=== PATIENT | female | born 1940 | race Caucasian/White ===

== ENCOUNTER 2018-03-04 05:52 | Day surgery (SDC) | payer MEDICARE, MEDICAID ==
[2018-03-04] MEDS ORDERED: Sodium Chloride 0.9% 10 ML Syringe FLUSH PRN (07:00)
[2018-03-04 08:35] VITALS: BP 112/63
--- NOTE | 2018-03-04 12:02 | OR ---
DATE OF PROCEDURE: 03/04/2018 POSTOPERATIVE CARE: Postoperative care will be provided mainly at the [address] [place] [address] [facility] in conjunction with [facility]. PREOPERATIVE DIAGNOSIS: Cataract, right eye. PREOPERATIVE DIAGNOSIS: Cataract, right eye. PROCEDURE: Cataract extraction, Phacoemulsification with intraocular lens placement, right eye. ANESTHESIA: Topical and intracameral. ESTIMATED BLOOD LOSS: Minimal. COMPLICATIONS: None. PATHOLOGY SPECIMENS: None. SURGICAL FINDINGS: None. INDICATION FOR PROCEDURE: The patient is a 78-year-old female with history of a visually significant cataract in the right eye, which interfered with activities of daily living. This consisted of a nuclear sclerosis cataract. Following careful discussion of the risks, benefits and alternatives to cataract extraction with intraocular lens placement including blindness and , the patient elected to proceed, and informed, written consent was obtained prior to the procedure. DESCRIPTION OF THE PROCEDURE: The patient was previously identified, and a yanna placed above the right eye. All sources, including the patient, indicated that the right eye was the correct eye. The patient was subsequently taken to the operating room where standard monitors were applied. The patient was then prepped and draped in the usual sterile fashion for ophthalmic surgery. Attention was first directed at the 12 o'clock position where a paracentesis port was fashioned. Shugar solution followed by Viscoat was instilled into the eye. Attention was then directed to the 8:30 position where a triplanar incision was made in a near-clear manner using a keratome. A continuous capsulorrhexis was then made using a combination of the cystotome and Utrata forceps. Hydrodissection was achieved using a balanced salt solution, and the lens rotated nicely. Phacoemulsification was then done using a modified [id number] technique without complication. Phaco time was 11.92 CDE. The remaining cortex was removed using the irrigation/aspiration handpiece. Provisc was then instilled into the eye. A Technis lens, model [id number], at 18.0 diopters was then placed in the capsular bag using an [place] injector. The remaining viscoelastic was removed using the irrigation/aspiration forceps. All wounds were then checked and found to be watertight. The lid speculum and drapes were removed. Maxitrol ointment was placed in the patient's right eye, and the eye was shielded. The patient tolerated the procedure well. The patient was instructed to follow up tomorrow. All needle and sponge counts were correct at the end of the procedure. Olga Mckeon MD /[id number]
== END 2018-03-04 09:10 | disposition home or self-care (01) ==
LOC: JP.SDS 05:52
PROVIDERS: ATTEND Ophthalmology
DX: H25.11 Age-related nuclear cataract, right eye (principal); I50.9 Heart failure, unspecified
CPT/HCPCS: 66984; C1780; J7050

== ENCOUNTER 2018-03-25 06:53 | Day surgery (SDC) | payer MEDICARE, MEDICAID ==
[2018-03-25] MEDS ORDERED: Sodium Chloride 0.9% 10 ML Syringe FLUSH PRN (07:00)
[2018-03-25 08:42] VITALS: BP 167/99
--- NOTE | 2018-03-25 09:34 | OR ---
DATE OF PROCEDURE: 03/25/2018 POSTOPERATIVE CARE: Postoperative care will be provided mainly at the [address] [place] [address] [facility] in conjunction with [facility]. PREOPERATIVE DIAGNOSIS: Cataract, left eye. POSTOPERATIVE DIAGNOSIS: Cataract, left eye. PROCEDURE: Cataract extraction, phacoemulsification with intraocular lens placement, left eye. ANESTHESIA: Topical and intracameral. ESTIMATED BLOOD LOSS: Minimal. COMPLICATIONS: None. PATHOLOGY SPECIMENS: None. SURGICAL FINDINGS: None. INDICATION FOR PROCEDURE: The patient is a 78-year-old female with history of a visually significant cataract in the left eye, which interfered with activities of daily living. This consisted of a nuclear sclerosis cataract. Following careful discussion of the risks, benefits and alternatives to cataract extraction with intraocular lens placement including blindness and , the patient elected to proceed, and informed, written consent was obtained prior to the procedure. DESCRIPTION OF THE PROCEDURE: The patient was previously identified, and a yanna placed above the left eye. All sources, including the patient, indicated that the left eye was the correct eye. The patient was subsequently taken to the operating room where standard monitors were applied. The patient was then prepped and draped in the usual sterile fashion for ophthalmic surgery. Attention was first directed at the 12 o'clock position where a paracentesis port was fashioned. Shugar solution followed by Viscoat was instilled into the eye. Attention was then directed to the 8:30 position where a triplanar incision was made in a near-clear manner using a keratome. A continuous capsulorrhexis was then made using a combination of the cystotome and Utrata forceps. Hydrodissection was achieved using a balanced salt solution, and the lens rotated nicely. Phacoemulsification was then done using a modified [id number] technique without complication. Phaco time was 14.83 CDE. The remaining cortex was removed using the irrigation/aspiration handpiece. Provisc was then instilled into the eye. A Technis lens, model [id number], at 19.0 diopters was then placed in the capsular bag using an [place] injector. The remaining viscoelastic was removed using the irrigation/aspiration forceps. All wounds were then checked and found to be watertight. The lid speculum and drapes were removed. Maxitrol ointment was placed in the patient's left eye, and the eye was shielded. The patient tolerated the procedure well. The patient was instructed to follow up tomorrow. All needle and sponge counts were correct at the end of the procedure. Olga Mckeon MD /[id number]
== END 2018-03-25 09:03 | disposition home or self-care (01) ==
LOC: JP.SDS 06:53
PROVIDERS: ATTEND Ophthalmology
DX: H25.12 Age-related nuclear cataract, left eye (principal); I10 Essential (primary) hypertension
CPT/HCPCS: 66984; J7050

== ENCOUNTER 2021-03-01 14:37 | Emergency (ER) | payer MEDICARE, MEDICAID ==
[2021-03-01 16:14] VITALS: PULSE 112
[2021-03-01] MEDS ORDERED: Nitroglycerin 0.4 MG Tab.SL SL PRN (16:20)
[2021-03-01] MEDS ORDERED: Aspirin 81 MG Tab.Chew PO ONE (16:20)
[2021-03-01] MEDS ORDERED: Sodium Chloride 0.9% 10 ML Syringe FLUSH PRN (16:20)
--- NOTE | 2021-03-01 16:25 | EDM.PDOC ---
ED HPI GENERAL MEDICAL PROBLEM - General Chief Complaint: Cardiovascular Problem Stated Complaint: SHORTNESS OF BREATH Time Seen by Provider: 03/01/21 16:15 Source of Information: Reports: Patient, Family, RN Notes Reviewed History Limitations: Reports: No Limitations - History of Present Illness INITIAL COMMENTS - FREE TEXT/NARRATIVE: 81-year-old female presents emergency department day complaint of shortness of breath, she states is gotten worse over the last 3 to 4 days does have some chest pressure does have a history of coronary artery disease has not had any Covid vaccine no fevers no nausea vomiting no diaphoresis, does have a history of congestive heart failure intermittently takes her Lasix - Related Data Allergies Allergy/AdvReac Type Severity Reaction Status Date / Time No Known Allergies Allergy Verified 06/17/18 23:36 Home Meds: Home Meds Aspirin 81 mg PO DAILY 02/25/18 [History] Cholecalciferol (Vitamin D3) [Vitamin D3] 5,000 units PO DAILY 02/25/18 [History] Furosemide [Lasix] 20 mg PO DAILY PRN 02/25/18 [History] Nitroglycerin [Nitrostat] 0.4 mg SL ASDIRECTED 02/25/18 [History] carvediloL [Coreg] 3.125 mg PO BIDMEALS 03/24/18 [History] Rosuvastatin [Crestor] 5 mg PO DAILY 03/01/21 [History] Spironolactone [Aldactone] 25 mg PO DAILY 03/01/21 [History] Past Medical History HEENT History: Reports: Cataract, Impaired Vision Cardiovascular History: Reports: CAD, Heart Failure, High Cholesterol, Hypert ension, [employer] History: Reports: Musculoskeletal History: Reports: Fracture - Infectious Disease History Infectious Disease History: Reports: Chicken Pox, Measles, Mumps, Scarlet Fever - Past Surgical History Head Surgeries/Procedures: Reports: None HEENT Surgical History: Reports: Cataract Surgery, Tonsillectomy Cardiovascular Surgical History: Reports: Carotid Stents Other Cardiovascular Surgeries/Procedures: Cardiac Stent x 3 placed in 2004 in [place], [place] GI Surgical History: Reports: Appendectomy, Cholecystectomy, Colonoscopy, EGD Female Surgical History: Reports: Hysterectomy Other Female Surgeries/Procedures: Bilateral Salpingo-oophrectomy Social & Family History - Family History Family Medical History: No Pertinent Family History - Tobacco Use Tobacco Use Status *Q: Never Tobacco User - Caffeine Use Caffeine Use: Reports: Tea - Recreational Drug Use Recreational Drug Use: No ED ROS GENERAL - Review of Systems Review Of Systems: See Below Constitutional: Denies: Fever, Chills HEENT: Reports: No Symptoms Respiratory: Reports: Shortness of Breath Cardiovascular: Reports: Chest Pain, Dyspnea on Exertion GI/Abdominal: Reports: No Symptoms ED EXAM, GENERAL - Physical Exam Exam: See Below Exam Limited By: No Limitations General Appearance: Alert, WD/WN, No Apparent Distress Respiratory/Chest: No Respiratory Distress, No Accessory Muscle Use, Chest Non- Tender, Crackles Cardiovascular: Tachycardia GI/Abdominal: Soft, Non-Tender Extremities: No Pedal Edema #1 Interpretation EKG Date: 03/01/21 Time: 16:38 Rhythm: NSR Pierre: Normal P-Wave: Present QRS: Normal ST-T: Normal QT: Normal Comparison: No Change EKG Interpretation Comments: pvc Course - Vital Signs Last Recorded V/S: Last Vital Signs Temp 97.4 F 03/01/21 16:14 Pulse 112 H 03/01/21 16:14 Resp 26 H 03/01/21 16:39 BP 176/104 H 03/01/21 16:39 Pulse Ox 91 L 03/01/21 16:39 - Orders/Labs/Meds Orders: Active Orders 24 hr Category Date Time Status Cardiac Monitoring [RC] .As Directed Care 03/01/21 16:20 Active EKG Documentation Completion [RC] ASDIRECTED Care 03/01/21 16:21 Active Peripheral IV Care [RC] . DIRECTED Care 03/01/21 16:21 Active Chest 1V Frontal [CR] Stat Exams 03/01/21 16:20 Taken Nitroglycerin [Nitrostat] Med 03/01/21 16:20 Active 0.4 mg SL Q5M PRN Sodium Chloride 0.9% [Saline Flush] Med 03/01/21 16:20 Active 10 ml FLUSH ASDIRECTED PRN Peripheral IV Insertion Adult [OM.PC] Stat Oth 03/01/21 16:20 Ordered Saline Lock Insert [OM.PC] Stat Oth 03/01/21 16:20 Ordered EKG 12 Lead [EK] Stat Ther 03/01/21 16:20 Ordered Medication Orders Nitroglycerin (Nitroglycerin 0.4 Mg Tab.Sl) 0.4 mg SL Q5M PRN PRN Reason: Chest Pain Stop: 03/02/21 16:21 Last Admin: 03/01/21 16:33 Dose: 0.4 mg Documented by: IVELISSE Sodium Chloride (Sodium Chloride 0.9% 10 Ml Syringe) 10 ml FLUSH ASDIRECTED PRN PRN Reason: Keep Vein Open Last Admin: 03/01/21 16:32 Dose: 10 ml Documented by: IVELISSE Labs: Laboratory Tests 03/01/21 03/01/21 Range/Units 16:31 16:31 WBC 12.1 H (4.5-11.0) K/uL RBC 4.51 (3.30-5.50) M/uL Hgb 13.4 (12.0-15.0) g/dL Hct 42.0 (36.0-48.0) % MCV 93 (80-98) fL MCH 30 (27-31) pg MCHC 32 (32-36) % Plt Count 284 (150-400) K/uL Neut % (Auto) 84.0 H (36-66) % Lymph % (Auto) 7.9 L (24-44) % [place] % (Auto) 5.5 (2-6) % Eos % (Auto) 2.3 (2-4) % Baso % (Auto) 0.3 (0-1) % Sodium 144 (140-148) mmol/L Potassium 4.5 (3.6-5.2) mmol/L Chloride 105 (100-108) mmol/L Carbon Dioxide 23 (21-32) mmol/L Anion Gap 16.3 H (5.0-14.0) mmol/L BUN 18 (7-18) mg/dL Creatinine 1.0 (0.6-1.0) mg/dL Est Cr Clr Drug Dosing 40.38 mL/min Estimated GFR (MDRD) 53 L (>60) Glucose 133 H (74-106) mg/dL Calcium 9.0 (8.5-10.1) mg/dL Total Bilirubin 0.5 (0.2-1.0) mg/dL AST 17 (15-37) U/L ALT 16 (12-78) U/L Alkaline Phosphatase 93 (46-116) U/L Troponin I 0.022 (0.000-0.056) ng/mL NT-Pro-B Natriuret Pep 64286 H (5-450) pg/mL Total Protein 7.7 (6.4-8.2) g/dL Albumin 3.5 (3.4-5.0) g/dL Globulin 4.2 H (2.3-3.5) g/dL Albumin/Globulin Ratio 0.8 L (1.2-2.2) Meds: Medications Generic Name Dose Route Start Last Admin Trade Name Freq PRN Reason Stop Dose Admin Nitroglycerin 0.4 mg 03/01/21 16:20 03/01/21 16:33 Nitroglycerin 0.4 Mg Tab.Sl SL 03/02/21 16:21 0.4 mg Q5M PRN Administration Chest Pain Sodium Chloride 10 ml 03/01/21 16:20 03/01/21 16:32 Sodium Chloride 0.9% 10 Ml Syringe FLUSH 10 ml ASDIRECTED PRN Administration Keep Vein Open Discontinued Medications Generic Name Dose Route Start Last Admin Trade Name Freq PRN Reason Stop Dose Admin Aspirin 324 mg 03/01/21 16:20 03/01/21 16:31 Aspirin 81 Mg Tab.Chew PO 03/01/21 16:21 324 mg ONETIME ONE Administration Furosemide 60 mg 03/01/21 17:30 Furosemide 40 Mg/4 Ml Vial IVPUSH 03/01/21 17:31 ONETIME ONE Departure - Departure Time of Disposition: 17:33 Disposition: Home, Self-Care 01 Condition: Fair Clinical Impression: Acute exacerbation of congestive heart failure Qualifiers: Heart failure type: unspecified Qualified Code(s): I50.9 - Heart failure, unspecified Instructions: Heart Failure, Self Care, [id number] Referrals: Noah Erickson MD [Primary Care Provider] - Forms: ED Department Discharge Additional Instructions: Restart your Lasix 40 mg once a day, please follow-up with your primary care in 5 to 7 days for reevaluation and recheck your blood work and kidney function. You can start your Lasix tomorrow Sepsis Event Note (ED) - Evaluation Sepsis Screening Result: No Definite Risk - Focused Exam Vital Signs: Vital Signs Temp Pulse Resp BP BP Pulse Ox 03/01/21 16:39 26 H 176/104 H 91 L 03/01/21 16:33 178/102 H 03/01/21 16:14 97.4 F 112 H 22 H 192/107 H 94 L 03/01/21 16:05 97.4 F 104 H 20 192/107 H 94 L - My Orders Last 24 Hours: My Active Orders 03/01/21 16:20 Cardiac Monitoring [RC] .As Directed Chest 1V Frontal [CR] Stat Nitroglycerin [Nitrostat] 0.4 mg SL Q5M PRN Sodium Chloride 0.9% [Saline Flush] 10 ml FLUSH ASDIRECTED PRN Peripheral IV Insertion Adult [OM.PC] Stat Saline Lock Insert [OM.PC] Stat EKG 12 Lead [EK] Stat 03/01/21 16:21 EKG Documentation Completion [RC] ASDIRECTED Peripheral IV Care [RC] . DIRECTED - Assessment/Plan Last 24 Hours: My Active Orders 03/01/21 16:20 Cardiac Monitoring [RC] .As Directed Chest 1V Frontal [CR] Stat Nitroglycerin [Nitrostat] 0.4 mg SL Q5M PRN Sodium Chloride 0.9% [Saline Flush] 10 ml FLUSH ASDIRECTED PRN Peripheral IV Insertion Adult [OM.PC] Stat Saline Lock Insert [OM.PC] Stat EKG 12 Lead [EK] Stat 03/01/21 16:21 EKG Documentation Completion [RC] ASDIRECTED Peripheral IV Care [RC] . DIRECTED Plan: Assessment Acuity = acute Site and laterality = exacerbation congestive heart failure Etiology = medical compliance Manifestations = none Location of injury = Home Lab values = WBC elevated 12.1 consistent leukocytosis, troponin normal range at 0.022 BNP markedly elevated 12932 chest x-ray consistent with congestive heart failure type pattern Plan After further discussion with her she does admit that she is very intermittent on her Lasix she does not take it every day sometimes she only takes half a tablet cardiology had put on her 40 mg once a day she is concerned about her kidney function so she has cut back on her Lasix, she was provided 80 mg IV dose in the emergency department her creatinine now is at 1.0 I recommend she restart the dose of Lasix per recommendation of cardiology with 40 mg once a day and and follow-up with her primary care in a week or so for reevaluation This note was dictated using [employer] voice recognition software please call with any questions on syntax or grammar.
[2021-03-01 16:39] VITALS: BP 176/104
[2021-03-01] MEDS ORDERED: Furosemide 40 MG/4 ML VIAL IVPUSH ONE (17:30)
--- NOTE | 2021-03-04 13:51 | CR ---
CHEST: Portable 03/01/2021 at 4:54 PM CLINICAL HISTORY:Chest pain COMPARISON:2018 FINDINGS: The heart size, pulmonary vascularity and hilar structures are normal. No infiltrate effusion or pneumothorax is seen. There are some chronic interstitial prominence similar to prior study. There are atherosclerotic changes in the aorta. IMPRESSION: No acute cardiopulmonary process. Chronic interstitial changes
== END 2021-03-01 18:20 | disposition home or self-care (01) ==
LOC: JP.ED 14:37
DX: I11.0 Hypertensive heart disease with heart failure (principal); I50.9 Heart failure, unspecified; I25.10 Atherosclerotic heart disease of native coronary artery without angina pectoris; E78.00 Pure hypercholesterolemia, unspecified; I25.2 Old myocardial infarction; Z79.82 Long term (current) use of aspirin; Z79.899 Other long term (current) drug therapy
CPT/HCPCS: 36415; 71045; 80053; 83880; 84484; 85025; 93005; 96374; 99284; 99285; A9270; J1940

== ENCOUNTER 2021-08-20 19:43 | Inpatient (IN) | payer MEDICARE, MEDICAID ==
[2021-08-20] MEDS ORDERED: Sodium Chloride 0.9% 10 ML Syringe FLUSH PRN (19:45)
--- NOTE | 2021-08-20 20:00 | EDM.PDOC ---
ED HPI GENERAL MEDICAL PROBLEM - General Chief Complaint: Neuro Symptoms/Deficits Stated Complaint: POST SURGICAL DIZZINESS Time Seen by Provider: 08/20/21 19:45 Source of Information: Reports: Patient, Family History Limitations: Reports: No Limitations - History of Present Illness INITIAL COMMENTS - FREE TEXT/NARRATIVE: Annika is an 81-year-old female presenting to the ED for evaluation of acute onset of diplopia. Patient underwent a coronary angiogram at [facility] yesterday having a right radial artery approach and reports that she had brief episodes yesterday of diplopia. Today she felt acutely dizzy and lowered herself to the floor and again started to experience diplopia. The patient's last known well time was 1330 hrs. yesterday. Head Pain Score (Numeric/FACES): 5 - Related Data Allergies Allergy/AdvReac Type Severity Reaction Status Date / Time No Known Allergies Allergy Verified 08/20/21 20:36 Home Meds: Home Meds Aspirin 81 mg PO DAILY 02/25/18 [History] Cholecalciferol (Vitamin D3) [Vitamin D3] 5,000 units PO DAILY 02/25/18 [History] Nitroglycerin [Nitrostat] 0.4 mg SL ASDIRECTED 02/25/18 [History] carvediloL [Coreg] 3.125 mg PO BIDMEALS 03/24/18 [History] Rosuvastatin [Crestor] 5 mg PO DAILY 03/01/21 [History] Spironolactone [Aldactone] 25 mg PO DAILY 03/01/21 [History] Furosemide 1 tab PO DAILY 08/20/21 [History] Past Medical History HEENT History: Reports: Cataract, Impaired Vision Cardiovascular History: Reports: CAD, Heart Failure, High Cholesterol, Hypertension, DC Genitourinary History: Reports: None NEWSPERSON History: Reports: Musculoskeletal History: Reports: Fracture - Infectious Disease History Infectious Disease History: Reports: Chicken Pox, Measles, Mumps, Scarlet Fever - Past Surgical History Head Surgeries/Procedures: Reports: None HEENT Surgical History: Reports: Cataract Surgery, Tonsillectomy Cardiovascular Surgical History: Reports: Carotid Stents Other Cardiovascular Surgeries/Procedures: Cardiac Stent x 3 placed in 2004 in [place], [place] GI Surgical History: Reports: Appendectomy, Cholecystectomy, Colonoscopy, EGD Female Surgical History: Reports: Hysterectomy Other Female Surgeries/Procedures: Bilateral Salpingo-oophrectomy Social & Family History - Family History Family Medical History: No Pertinent Family History - Caffeine Use Caffeine Use: Reports: Tea ED ROS GENERAL - Review of Systems Review Of Systems: See Below Constitutional: Reports: No Symptoms HEENT: Reports: Vision Change (Diplopia) Respiratory: Reports: No Symptoms Cardiovascular: Reports: No Symptoms Endocrine: Reports: No Symptoms GI/Abdominal: Reports: Nausea : Reports: No Symptoms Musculoskeletal: Reports: No Symptoms Skin: Reports: No Symptoms Neurological: Reports: Dizziness, Other (Diplopia) Psychiatric: Reports: No Symptoms Hematologic/Lymphatic: Reports: No Symptoms Immunologic: Reports: No Symptoms ED EXAM, NEURO - Physical Exam Exam: See Below Exam Limited By: No Limitations General Appearance: Alert, Anxious Eye Exam: Right Eye: EOMI, PERRL (Left pupil is slightly dilated at 3 mm and nonreactive to light. Right pupil is 2 mm and reactive to light.), Left Eye: Abnormal EOM (Not able to track in any direction with the eye causing diplopia and dizziness) Ears: Normal External Exam Nose: Normal Inspection Throat/Mouth: Normal Oropharynx, Normal Voice, No Airway Compromise Head Exam: Atraumatic, Normocephalic Neck: Normal Inspection, Supple, Non-Tender, Full Range of Motion, Carotid Bruit (Bilateral) Respiratory/Chest: No Respiratory Distress, Lungs Clear, Normal Breath Sounds Cardiovascular: Normal Peripheral Pulses, Regular Rate, Rhythm, No Murmur GI/Abdominal: Normal Bowel Sounds, Soft, Non-Tender Neurological: Alert, Normal Dorsiflexion, Normal Plantar Flexion, Normal Gait, No Motor/Sensory Deficits, Oriented x 3, Other (Left pupil is at 3 mm with a minimally reactive pupil to light. There is an ocular palsy in any direction with this eye.). No: CN II-XII Intact Back Exam: Normal Inspection, Full Range of Motion Extremities: Normal Inspection, Normal Range of Motion Psychiatric: Normal Affect, Anxious Skin Exam: Warm, Dry, Intact, Normal Color #1 Interpretation EKG Date: 08/20/21 Time: 20:08 Rhythm: NSR Rate (Beats/Min): 78 [place]: Normal P-Wave: Present QRS: Normal ST-T: Normal (Specific ST-T changes in the lateral leads.) QT: Normal Comparison: No Change (No change when compared to the previous EKG on 03/01/2021.) Course - Vital Signs Last Recorded V/S: Last Vital Signs Temp 36.4 C 08/20/21 19:44 Pulse 76 08/20/21 20:49 Resp 14 08/20/21 20:49 BP 119/62 08/20/21 20:49 Pulse Ox 95 08/20/21 20:49 - Orders/Labs/Meds Orders: Active Orders 24 hr Category Date Time Status Assess Neurological Status [RC] CONTINUOUS Care 08/20/21 19:47 Active Blood Glucose Check, Bedside [RC] STAT Care 08/20/21 19:47 Active Cardiac Monitoring [RC] CONTINUOUS Care 08/20/21 19:47 Active Communication Order [RC] STAT Care 08/20/21 19:47 Active Height and Weight [RC] UPON Care 08/20/21 19:47 Active NIH Stroke Scale [RC] Q15M Care 08/20/21 19:47 Active NIH Stroke Scale [RC] STAT Care 08/20/21 19:47 Active Oxygen Therapy, ED [RC] ASDIRECTED Care 08/20/21 19:47 Active Peripheral IV Care [RC] . DIRECTED Care 08/20/21 19:47 Active Vital Signs [RC] Q15M Care 08/20/21 19:47 Active [place] Bedside Swallow Assessment [RC] ASDIRECTED Care 08/20/21 19:47 Active Iopamidol [Isovue-370 (76%)] Med 08/20/21 20:45 Active 100 ml IV . DIRECTED Sodium Chloride 0.9% [Normal Saline] 100 ml Med 08/20/21 20:45 Active IV ASDIRECTED Sodium Chloride 0.9% [Saline Flush] Med 08/20/21 19:45 Active 10 ml FLUSH ASDIRECTED PRN Peripheral IV Insertion Adult [OM.PC] Stat Oth 08/20/21 19:47 Ordered Peripheral IV Insertion Adult [OM.PC] Stat Oth 08/20/21 19:47 Ordered EKG 12 Lead [EK] Stat Ther 08/20/21 19:47 Ordered Medication Orders Sodium Chloride (Normal Saline) 100 mls @ 3.5 mls/sec IV ASDIRECTED MARIO ALBERTO Iopamidol (Iopamidol 755 Mg/Ml 100 Ml Bottle) 100 ml IV . DIRECTED MARIO ALBERTO Sodium Chloride (Sodium Chloride 0.9% 10 Ml Syringe) 10 ml FLUSH ASDIRECTED PRN PRN Reason: Keep Vein Open Last Admin: 08/20/21 20:31 Dose: 10 ml Documented by: ARDEN Labs: Laboratory Tests 08/20/21 08/20/21 08/20/21 Range/Units 20:05 20:05 20:05 WBC 4.4 L (4.5-11.0) K/uL RBC 4.24 (3.30-5.50) M/uL Hgb 12.7 (12.0-15.0) g/dL Hct 38.9 (36.0-48.0) % MCV 92 (80-98) fL MCH 30 (27-31) pg MCHC 33 (32-36) % Plt Count 219 (150-400) K/uL Neut % (Auto) 60.3 (36-66) % Lymph % (Auto) 26.1 (24-44) % Gaines % (Auto) 10.6 H (2-6) % Eos % (Auto) 2.8 (2-4) % Baso % (Auto) 0.2 (0-1) % PT 10.4 (9.2-10.6) sec INR 1.0 APTT 29.8 (21.4-31.8) sec D-Dimer, Quantitative (0.0-500.0) ng/mL Sodium 142 (140-148) mmol/L Potassium 3.7 (3.6-5.2) mmol/L Chloride 103 (100-108) mmol/L Carbon Dioxide 24 (21-32) mmol/L Anion Gap 15.5 H (5.0-14.0) mmol/L BUN 16 (7-18) mg/dL Creatinine 1.2 H (0.6-1.0) mg/dL Est Cr Clr Drug Dosing TNP Estimated GFR (MDRD) 43 L (>60) Glucose 100 (74-106) mg/dL Lactic Acid (0.4-2.0) mmol/L Calcium 8.6 (8.5-10.1) mg/dL Ferritin (8-388) ng/ml Total Bilirubin 0.3 (0.2-1.0) mg/dL AST 23 (15-37) U/L ALT 20 (12-78) U/L Alkaline Phosphatase 78 (46-116) U/L Lactate Dehydrogenase (82-234) U/L Troponin I 0.469 H* (0.000-0.056) ng/mL C-Reactive Protein (0.0-0.3) mg/dL Total Protein 7.2 (6.4-8.2) g/dL Albumin 3.4 (3.4-5.0) g/dL Globulin 3.8 H (2.3-3.5) g/dL Albumin/Globulin Ratio 0.9 L (1.2-2.2) Procalcitonin ng/mL SARS CoV-2 RNA Rapid WHIT 08/20/21 08/20/21 08/20/21 Range/Units 21:07 21:28 21:28 WBC (4.5-11.0) K/uL RBC (3.30-5.50) M/uL Hgb (12.0-15.0) g/dL Hct (36.0-48.0) % MCV (80-98) fL MCH (27-31) pg MCHC (32-36) % Plt Count (150-400) K/uL Neut % (Auto) (36-66) % Lymph % (Auto) (24-44) % Gaines % (Auto) (2-6) % Eos % (Auto) (2-4) % Baso % (Auto) (0-1) % PT (9.2-10.6) sec INR APTT (21.4-31.8) sec D-Dimer, Quantitative 1658.33 H (0.0-500.0) ng/mL Sodium (140-148) mmol/L Potassium (3.6-5.2) mmol/L Chloride (100-108) mmol/L Carbon Dioxide (21-32) mmol/L Anion Gap (5.0-14.0) mmol/L BUN (7-18) mg/dL Creatinine (0.6-1.0) mg/dL Est Cr Clr Drug Dosing Estimated GFR (MDRD) (>60) Glucose (74-106) mg/dL Lactic Acid (0.4-2.0) mmol/L Calcium (8.5-10.1) mg/dL Ferritin 185 (8-388) ng/ml Total Bilirubin (0.2-1.0) mg/dL AST (15-37) U/L ALT (12-78) U/L Alkaline Phosphatase (46-116) U/L Lactate Dehydrogenase 169 (82-234) U/L Troponin I (0.000-0.056) ng/mL C-Reactive Protein 1.74 H (0.0-0.3) mg/dL Total Protein (6.4-8.2) g/dL Albumin (3.4-5.0) g/dL Globulin (2.3-3.5) g/dL Albumin/Globulin Ratio (1.2-2.2) Procalcitonin ng/mL SARS CoV-2 RNA Rapid WHIT Positive H 08/20/21 08/20/21 Range/Units 21:28 21:28 WBC (4.5-11.0) K/uL RBC (3.30-5.50) M/uL Hgb (12.0-15.0) g/dL Hct (36.0-48.0) % MCV (80-98) fL MCH (27-31) pg MCHC (32-36) % Plt Count (150-400) K/uL Neut % (Auto) (36-66) % Lymph % (Auto) (24-44) % Gaines % (Auto) (2-6) % Eos % (Auto) (2-4) % Baso % (Auto) (0-1) % PT (9.2-10.6) sec INR APTT (21.4-31.8) sec D-Dimer, Quantitative (0.0-500.0) ng/mL Sodium (140-148) mmol/L Potassium (3.6-5.2) mmol/L Chloride (100-108) mmol/L Carbon Dioxide (21-32) mmol/L Anion Gap (5.0-14.0) mmol/L BUN (7-18) mg/dL Creatinine (0.6-1.0) mg/dL Est Cr Clr Drug Dosing Estimated GFR (MDRD) (>60) Glucose (74-106) mg/dL Lactic Acid 0.8 (0.4-2.0) mmol/L Calcium (8.5-10.1) mg/dL Ferritin (8-388) ng/ml Total Bilirubin (0.2-1.0) mg/dL AST (15-37) U/L ALT (12-78) U/L Alkaline Phosphatase (46-116) U/L Lactate Dehydrogenase (82-234) U/L Troponin I (0.000-0.056) ng/mL C-Reactive Protein (0.0-0.3) mg/dL Total Protein (6.4-8.2) g/dL Albumin (3.4-5.0) g/dL Globulin (2.3-3.5) g/dL Albumin/Globulin Ratio (1.2-2.2) Procalcitonin < 0.05 ng/mL SARS CoV-2 RNA Rapid WHIT Meds: Medications Generic Name Dose Route Start Last Admin Trade Name Freq PRN Reason Stop Dose Admin Sodium Chloride 100 mls @ 3.5 mls/sec 08/20/21 20:45 Normal Saline IV ASDIRECTED MARIO ALBERTO Iopamidol 100 ml 08/20/21 20:45 Iopamidol 755 Mg/Ml 100 Ml Bottle IV . DIRECTED MARIO ALBERTO Sodium Chloride 10 ml 08/20/21 19:45 08/20/21 20:31 Sodium Chloride 0.9% 10 Ml Syringe FLUSH 10 ml ASDIRECTED PRN Administration Keep Vein Open Discontinued Medications Generic Name Dose Route Start Last Admin Trade Name Freq PRN Reason Stop Dose Admin Sodium Chloride 10 ml 08/20/21 20:39 Sodium Chloride 0.9% 10 Ml Syringe FLUSH 08/20/21 20:40 ONETIME ONE - Radiology Interpretation Free Text/Narrative:: The patient was a code stroke and went straight back to CT for a CT of the head without contrast. I reviewed the images of the study as well as the report. The report is as follows: FINDINGS: CSF spaces: Within normal limits for age. Brain parenchyma and extra-axial spaces: There are nonspecific low attenuation white matter changes consistent with chronic microvascular disease. No sign of mass, hemorrhage, or midline shift. Skull base and calvarium: The visualized paranasal sinuses and mastoid air cells demonstrate no acute or significant findings. The visualized orbits are grossly unremarkable. No skull fractures. IMPRESSION: No acute or significant findings. No signs of mass, acute ischemia or intracranial hemorrhage. Please note that all CT scans at this facility use dose modulation, iterative reconstruction, and/or weight-based dosing when appropriate to reduce radiation dose to as low as reasonably achievable. Dictated by Crescencio Diaz MD @ 08/20/2021 8:16:27 PM Based on the patient's symptoms of left ocular palsy and dilated nonreactive left pupil we proceeded with a CT angiogram of the head and neck. This was interpreted by Dr. Diaz with a CT angio of the head being unremarkable. No sign of occlusion or significant aneurysm. The CT angio of the neck being unremarkable. No sign of dissection or significant stenosis. This would lead me to think that this was an embolic event likely related to the recent angiogram. - Re-Assessments/Exams Free Text/Narrative Re-Assessment/Exam: 08/20/21 22:12 I reviewed the patient's labs showing a normal CBC with a leukocyte count of 4.4, hemoglobin of 12.7, hematocrit of 38.9 platelet count of 219,000. The patient's comprehensive metabolic panel is significant for sodium 142, potassium 3.7, chloride of 103, bicarbonate of 24, BUN of 16 with a creatinine 1.2 and a glucose of 100. Her GFR is calculated at 43. Her PT/INR is 10.4/1.0. Her PTT is 29.8. Her troponin is 0.469, however, the patient did undergo an angiogram yesterday without any evidence for acute stenosis. I discussed the case with Dr. Loaiza, stroke neurologist at [facility] who stated that were too far out for any interventional process at this time but r ecommended MRI/MRA in the morning. Unfortunately they did not have any beds available on the stroke service to accept the patient and recommended we admit the patient here. I reached out to the stroke service Dr. Denis, stroke neurologist at [facility] who recommended we admit the patient here because of lack of beds and to start the patient on a statin if they are not already on 1. The patient is on Crestor at this time. He stated this is likely a posterior embolic stroke. He recommended an echocardiogram, monitoring for any occurrence of atrial fibrillation, antiplatelet medication and fluids. He stated we should allow permissive hypertension. He recommended an MRI/MRA tomorrow. He also concurred that there is nothing that can acutely be done for this patient. I discussed the case with KIANNA Michel who will arrange for these measures. Incidentally, the patient tested positive for COVID-19 which will complicate measures a little bit. The patient reports that she did not tolerate Plavix but did tolerate Brilinta in the past. She is on Crestor at this time. Both her and her son were notified of the Covid test and the criteria for isolation. We will arrange for admission of the patient and further evaluation by PT/OT, and speech therapy. Departure - Departure Time of Disposition: 22:15 Disposition: Admitted As Inpatient 67 Clinical Impression: Posterior circulation stroke, Ocular palsy of left eye, Diplopia, COVID-19 - Discharge Information Referrals: PCP,Unknown [Primary Care Provider] - Forms: ED Department Discharge Critical Care Note - Critical Care Note Total Time (mins): 60 Comments: Critical care time of 60 minutes to coordinate assessment and treatment of the patient for acute stroke, this excludes procedures. Sepsis Event Note (ED) - Focused Exam Vital Signs: Vital Signs Temp Pulse Resp BP Pulse Ox 08/20/21 20:49 76 14 119/62 95 08/20/21 20:29 74 16 123/55 L 95 08/20/21 19:44 36.4 C 95 16 106/58 L 95 - Problem List & Annotations (1) COVID-19 SNOMED Code(s): 058101929 Code(s): U07.1 - COVID-19 Status: Acute Current Visit: Yes (2) Diplopia SNOMED Code(s): 96608008 Code(s): H53.2 - DIPLOPIA Status: Acute Current Visit: Yes (3) Ocular palsy of left eye SNOMED Code(s): 38144867 Code(s): H49.9 - UNSPECIFIED PARALYTIC STRABISMUS Status: Acute Current Visit: Yes (4) Posterior circulation stroke SNOMED Code(s): 167658425 Code(s): I63.50 - CEREB INFRC DUE TO UNSP OCCLS OR STENOS OF UNSP CEREB ARTERY Status: Acute Current Visit: Yes - My Orders Last 24 Hours: My Active Orders 08/20/21 19:45 Sodium Chloride 0.9% [Saline Flush] 10 ml FLUSH ASDIRECTED PRN 08/20/21 19:47 Assess Neurological Status [RC] CONTINUOUS Blood Glucose Check, Bedside [RC] STAT Cardiac Monitoring [RC] CONTINUOUS Communication Order [RC] STAT Height and Weight [RC] UPON NIH Stroke Scale [RC] Q15M NIH Stroke Scale [RC] STAT Oxygen Therapy, ED [RC] ASDIRECTED Peripheral IV Care [RC] . DIRECTED Vital Signs [RC] Q15M [place] Bedside Swallow Assessment [RC] ASDIRECTED Peripheral IV Insertion Adult [OM.PC] Stat Peripheral IV Insertion Adult [OM.PC] Stat EKG 12 Lead [EK] Stat 08/20/21 20:45 Iopamidol [Isovue-370 (76%)] 100 ml IV . DIRECTED Sodium Chloride 0.9% [Normal Saline] 100 ml IV ASDIRECTED - Assessment/Plan Last 24 Hours: My Active Orders 08/20/21 19:45 Sodium Chloride 0.9% [Saline Flush] 10 ml FLUSH ASDIRECTED PRN 08/20/21 19:47 Assess Neurological Status [RC] CONTINUOUS Blood Glucose Check, Bedside [RC] STAT Cardiac Monitoring [RC] CONTINUOUS Communication Order [RC] STAT Height and Weight [RC] UPON NIH Stroke Scale [RC] Q15M NIH Stroke Scale [RC] STAT Oxygen Therapy, ED [RC] ASDIRECTED Peripheral IV Care [RC] . DIRECTED Vital Signs [RC] Q15M [place] Bedside Swallow Assessment [RC] ASDIRECTED Peripheral IV Insertion Adult [OM.PC] Stat Peripheral IV Insertion Adult [OM.PC] Stat EKG 12 Lead [EK] Stat 08/20/21 20:45 Iopamidol [Isovue-370 (76%)] 100 ml IV . DIRECTED Sodium Chloride 0.9% [Normal Saline] 100 ml IV ASDIRECTED
--- NOTE | 2021-08-20 20:18 | CRLCT ---
For Patients: As a result of the Century Cures Act, medical imaging exams and procedure reports are released immediately into your electronic medical record. You may view this report before your referring provider. If you have questions, please contact your health care provider. INDICATION: Acute diplopia with dilated left pupil. TECHNIQUE: Head CT without contrast. COMPARISON: None. FINDINGS: CSF spaces: Within normal limits for age. Brain parenchyma and extra-axial spaces: There are nonspecific low attenuation white matter changes consistent with chronic microvascular disease. No sign of mass, hemorrhage, or midline shift. Skull base and calvarium: The visualized paranasal sinuses and mastoid air cells demonstrate no acute or significant findings. The visualized orbits are grossly unremarkable. No skull fractures. IMPRESSION: No acute or significant findings. No signs of mass, acute ischemia or intracranial hemorrhage. Please note that all CT scans at this facility use dose modulation, iterative reconstruction, and/or weight-based dosing when appropriate to reduce radiation dose to as low as reasonably achievable. Dictated by Crescencio Diaz MD @ 08/20/2021 8:16:27 PM (Electronically Signed)
[2021-08-20] MEDS ORDERED: Sodium Chloride 0.9% 10 ML Syringe FLUSH ONE (20:39)
[2021-08-20] MEDS ORDERED: Sodium Chloride 0.9% 100 ML IV SCH (20:45)
[2021-08-20] MEDS ORDERED: Iopamidol 755 Mg/ML 100 ML Bottle IV SCH (20:45)
--- NOTE | 2021-08-20 21:02 | CRLCT ---
For Patients: As a result of the Century Cures Act, medical imaging exams and procedure reports are released immediately into your electronic medical record. You may view this report before your referring provider. If you have questions, please contact your health care provider. DATE: 08/20/2021 CLINICAL HISTORY: Patient with left ocular palsy and diplopia. TECHNIQUE: Standard helical CT image acquisition of the neck up to the skull base after bolus intravenous contrast enhancement. Multiplanar reconstructed images performed on a separate workstation. COMPARISON: CT same day FINDINGS: The origins of the great vessels from the aortic arch are patent. The origin of the right vertebral artery is patent. The origin of the left vertebral artery is patent. The common carotid arteries are patent. There is no stenosis at the origin of the right internal carotid artery by NASCET criteria. There is a mild (<50%) stenosis at the origin of the left internal carotid artery by NASCET criteria. This is caused by calcified plaque with a <2mm residual lumen. The rest of the cervical segments of the internal carotid arteries are patent up to the skull base. The left vertebral artery is dominant. The cervical segments of the vertebral arteries are patent up to the skull base. The visualized lung apices are unremarkable. The thyroid gland is unremarkable. The soft tissues of the neck are unremarkable. There are degenerative changes in the cervical spine. IMPRESSION: 1. No dissection. 2. Mild (<50%) stenosis at the origin of the left internal carotid artery by NASCET criteria caused by calcified plaque with a <2mm residual lumen. Please note that all CT scans at this facility use dose modulation, iterative reconstruction, and/or weight-based dosing when appropriate to reduce radiation dose to as low as reasonably achievable. Dictated by Arlene Zambrano MD @ 08/20/2021 11:31:59 PM (Electronically Signed)
--- NOTE | 2021-08-20 21:02 | CRLCT ---
For Patients: As a result of the Century Cures Act, medical imaging exams and procedure reports are released immediately into your electronic medical record. You may view this report before your referring provider. If you have questions, please contact your health care provider. DATE: 08/20/2021 CLINICAL HISTORY: Patient with left ocular palsy and diplopia. TECHNIQUE: Standard helical CT image acquisition through the intracranial circulation following intravenous administration of contrast material with bolus tracking. Multiplanar reconstructed images were performed and interpreted. COMPARISON: CT same day FINDINGS: There is no cerebral aneurysm or large vessel occlusion. The right internal carotid artery is normal. The right middle cerebral artery and its branches are normal. The right anterior cerebral artery and its branches are normal. The left internal carotid artery is normal. The left middle cerebral artery and its branches are normal. The left anterior cerebral artery and its branches are normal. The anterior communicating artery is well visualized and appears normal. The right vertebral artery and PICA are normal. The left vertebral artery and PICA are normal. The left vertebral artery is dominant. The basilar artery is patent and appears normal. The right posterior cerebral artery is normal. The left posterior cerebral artery is normal. The visualized venous structures are patent. IMPRESSION: Normal CT angiogram of the head without intracranial aneurysm or other neurovascular abnormality. Please note that all CT scans at this facility use dose modulation, iterative reconstruction, and/or weight-based dosing when appropriate to reduce radiation dose to as low as reasonably achievable. Dictated by Arlene Zambrano MD @ 08/20/2021 11:33:47 PM (Electronically Signed)
--- NOTE | 2021-08-20 23:10 | PCM.HP.2 ---
H&P History of Present Illness - General Date of Service: 08/20/21 Admit Problem/Dx: Admission Diagnosis/Problem Admission Diagnosis/Problem CVA, Cerebrovascular accident Source of Information: Patient, Provider, RN History Limitations: Reports: No Limitations - History of Present Illness Initial Comments - Free Text/Narative: chief complaint: double vision and loss of balance Annika is an 81-year-old female presenting to the ED for evaluation of acute onset of diplopia. Patient underwent a coronary angiogram at [facility] yesterday at 10:30 am. having a right radial artery approach and reports that she had brief episodes yesterday of diplopia. Today she felt acutely dizzy and lowered herself to the floor and again started to experience diplopia. The patient's last known well time was 1330 hrs. yesterday. Symptom Onset Date: 08/19/21 Symptom Onset Time: 13:30 Duration of Symptoms: Reports: Constant Location: Reports: Generalized Quality: Reports: Other (head pain with double vision.) Severity: Severe Improves with: Reports: None Worsens with: Reports: Movement Context: Reports: Other (s/p angioplasty 08/19/2021) Associated Symptoms: Reports: Other (vertigo) Head Pain Score (Numeric/FACES): 5 - Related Data Allergies/Adverse Reactions: Allergies Allergy/AdvReac Type Severity Reaction Status Date / Time No Known Allergies Allergy Verified 08/20/21 20:36 Home Medications: Home Meds Aspirin 81 mg PO DAILY 02/25/18 [History] Cholecalciferol (Vitamin D3) [Vitamin D3] 5,000 units PO DAILY 02/25/18 [History] Nitroglycerin [Nitrostat] 0.4 mg SL ASDIRECTED 02/25/18 [History] carvediloL [Coreg] 3.125 mg PO BIDMEALS 03/24/18 [History] Rosuvastatin [Crestor] 5 mg PO DAILY 03/01/21 [History] Spironolactone [Aldactone] 25 mg PO DAILY 03/01/21 [History] Furosemide 1 tab PO DAILY 08/20/21 [History] Past Medical History HEENT History: Reports: Cataract, Impaired Vision Cardiovascular History: Reports: CAD, Heart Failure, High Cholesterol, Hypertension, [place], Other (See Below) Other Cardiovascular History: angiogram 08/20/2021 Gastrointestinal History: Reports: GERD Genitourinary History: Reports: None 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 History: Reports: Musculoskeletal History: Reports: Fracture - Infectious Disease History Infectious Disease History: Reports: Chicken Pox, Measles, Mumps, Scarlet Fever - Past Surgical History Head Surgeries/Procedures: Reports: None HEENT Surgical History: Reports: Cataract Surgery, Tonsillectomy Cardiovascular Surgical History: Reports: Carotid Stents Other Cardiovascular Surgeries/Procedures: Cardiac Stent x 3 placed in 2004 in [place], [place] GI Surgical History: Reports: Appendectomy, Cholecystectomy, Colonoscopy, EGD Female Surgical History: Reports: Hysterectomy Other Female Surgeries/Procedures: Bilateral Salpingo-oophrectomy Musculoskeletal Surgical History: Reports: None Dermatological Surgical History: Reports: None Social & Family History - Family History Family Medical History: No Pertinent Family History - Tobacco Use Tobacco Use Status *Q: Former Tobacco User Used Tobacco, but Quit: Yes Month/Year Tobacco Last Used: 10/2014 - Caffeine Use Caffeine Use: Reports: Coffee, Soda, Tea - Recreational Drug Use Recreational Drug Use: No - Living Situation & Occupation Living situation: Reports: Occupation: Retired (lives in [place], [place]. with Son.) H&P Review of Systems - Review of Systems: Review Of Systems: See Below General: Reports: Weakness, Fatigue, Other (neat, well groomed, polite young appearing 81 year old female. speech clear and intact.) HEENT: Reports: Headaches (report headache), Vertigo, Visual Changes (double vision) Pulmonary: Reports: No Symptoms Cardiovascular: Reports: Other (reports Congestive Heart Failure & cardiac stents >5) Gastrointestinal: Reports: No Symptoms Genitourinary: Reports: No Symptoms Musculoskeletal: Reports: No Symptoms Skin: Reports: No Symptoms Psychiatric: Reports: No Symptoms Neurological: Reports: Dizziness, Headache, Difficulty Walking (due to loss of balance and double vision), Weakness Hematologic/Lymphatic: Reports: No Symptoms Immunologic: Reports: No Symptoms Exam - Exam Exam: See Below - Vital Signs Vital Signs: Last Vital Signs Temp 97.5 F 08/20/21 19:44 Pulse 76 08/20/21 22:20 Resp 14 08/20/21 22:20 BP 123/48 L 08/20/21 22:20 Pulse Ox 95 08/20/21 22:20 Weight: 164 lb - Exam Quality Assessment: Supplemental Oxygen, DVT Prophylaxis General: Alert, Oriented, Cooperative, Mild Distress (report headache), Other (p leasant, polite, neat and well groomed, appears younger than stated age female.) HEENT: Hearing Intact, Mucosa Moist & [place] (recent dental surgery, had all teeth removed for dentures), Nares Patent, Glasses, Other (right eye palsy. right pupil sluggish ). No: Pupils Equal, Pupils Reactive Neck: Supple, Trachea Midline, 2 Lungs: Clear to Auscultation, Normal Respiratory Effort Cardiovascular: Regular Rate, Regular Rhythm, Normal S1, Normal S2 GI/Abdominal Exam: Normal Bowel Sounds, Soft, Non-Tender, No Organomegaly, No Distention, No Abnormal Bruit, No Mass, Pelvis Stable (Female) Exam: Deferred Rectal (Female) Exam: Deferred Back Exam: Normal Inspection, Full Range of Motion, NT Extremities: Normal Inspection, Normal Range of Motion, Non-Tender, No Pedal Edema, Normal Capillary Refill Peripheral Pulses: 2+: Brachial (R), Radial (L), Dorsalis Pedis (L), Dorsalis Pedis (R) Neurological: Cranial Nerves Intact, Reflexes Equal Bilateral, Strength Equal Bilateral, Normal Speech, Normal Tone Neuro Extensive - Mental Status: Alert, Oriented x3, Normal Mood/Affect, Normal Cognition Neuro Extensive - Motor, Sensory, Reflexes: CN II-XII Intact, Normal Gait, Viki l Reflexes Psychiatric: Alert, Normal Affect, Normal Mood - Patient Data Lab Results Last 24 hrs: Laboratory Results - last 24 hr 08/20/21 08/20/21 08/20/21 Range/Units 20:05 20:05 20:05 WBC 4.4 L (4.5-11.0) K/uL RBC 4.24 (3.30-5.50) M/uL Hgb 12.7 (12.0-15.0) g/dL Hct 38.9 (36.0-48.0) % MCV 92 (80-98) fL MCH 30 (27-31) pg MCHC 33 (32-36) % Plt Count 219 (150-400) K/uL Neut % (Auto) 60.3 (36-66) % Lymph % (Auto) 26.1 (24-44) % [place] % (Auto) 10.6 H (2-6) % Eos % (Auto) 2.8 (2-4) % Baso % (Auto) 0.2 (0-1) % PT 10.4 (9.2-10.6) sec INR 1.0 APTT 29.8 (21.4-31.8) sec D-Dimer, Quantitative (0.0-500.0) ng/mL Sodium 142 (140-148) mmol/L Potassium 3.7 (3.6-5.2) mmol/L Chloride 103 (100-108) mmol/L Carbon Dioxide 24 (21-32) mmol/L Anion Gap 15.5 H (5.0-14.0) mmol/L BUN 16 (7-18) mg/dL Creatinine 1.2 H (0.6-1.0) mg/dL Est Cr Clr Drug Dosing TNP Estimated GFR (MDRD) 43 L (>60) Glucose 100 (74-106) mg/dL Lactic Acid (0.4-2.0) mmol/L Calcium 8.6 (8.5-10.1) mg/dL Ferritin (8-388) ng/ml Total Bilirubin 0.3 (0.2-1.0) mg/dL AST 23 (15-37) U/L ALT 20 (12-78) U/L Alkaline Phosphatase 78 (46-116) U/L Lactate Dehydrogenase (82-234) U/L Troponin I 0.469 H* (0.000-0.056) ng/mL C-Reactive Protein (0.0-0.3) mg/dL Total Protein 7.2 (6.4-8.2) g/dL Albumin 3.4 (3.4-5.0) g/dL Globulin 3.8 H (2.3-3.5) g/dL Albumin/Globulin Ratio 0.9 L (1.2-2.2) Procalcitonin ng/mL SARS CoV-2 RNA Rapid WHIT 08/20/21 08/20/21 08/20/21 Range/Units 21:07 21:28 21:28 WBC (4.5-11.0) K/uL RBC (3.30-5.50) M/uL Hgb (12.0-15.0) g/dL Hct (36.0-48.0) % MCV (80-98) fL MCH (27-31) pg MCHC (32-36) % Plt Count (150-400) K/uL Neut % (Auto) (36-66) % Lymph % (Auto) (24-44) % Marin % (Auto) (2-6) % Eos % (Auto) (2-4) % Baso % (Auto) (0-1) % PT (9.2-10.6) sec INR APTT (21.4-31.8) sec D-Dimer, Quantitative 1658.33 H (0.0-500.0) ng/mL Sodium (140-148) mmol/L Potassium (3.6-5.2) mmol/L Chloride (100-108) mmol/L Carbon Dioxide (21-32) mmol/L Anion Gap (5.0-14.0) mmol/L BUN (7-18) mg/dL Creatinine (0.6-1.0) mg/dL Est Cr Clr Drug Dosing Estimated GFR (MDRD) (>60) Glucose (74-106) mg/dL Lactic Acid (0.4-2.0) mmol/L Calcium (8.5-10.1) mg/dL Ferritin 185 (8-388) ng/ml Total Bilirubin (0.2-1.0) mg/dL AST (15-37) U/L ALT (12-78) U/L Alkaline Phosphatase (46-116) U/L Lactate Dehydrogenase 169 (82-234) U/L Troponin I (0.000-0.056) ng/mL C-Reactive Protein 1.74 H (0.0-0.3) mg/dL Total Protein (6.4-8.2) g/dL Albumin (3.4-5.0) g/dL Globulin (2.3-3.5) g/dL Albumin/Globulin Ratio (1.2-2.2) Procalcitonin ng/mL SARS CoV-2 RNA Rapid WHIT Positive H 08/20/21 08/20/21 Range/Units 21:28 21:28 WBC (4.5-11.0) K/uL RBC (3.30-5.50) M/uL Hgb (12.0-15.0) g/dL Hct (36.0-48.0) % MCV (80-98) fL MCH (27-31) pg MCHC (32-36) % Plt Count (150-400) K/uL Neut % (Auto) (36-66) % Lymph % (Auto) (24-44) % [place] % (Auto) (2-6) % Eos % (Auto) (2-4) % Baso % (Auto) (0-1) % PT (9.2-10.6) sec INR APTT (21.4-31.8) sec D-Dimer, Quantitative (0.0-500.0) ng/mL Sodium (140-148) mmol/L Potassium (3.6-5.2) mmol/L Chloride (100-108) mmol/L Carbon Dioxide (21-32) mmol/L Anion Gap (5.0-14.0) mmol/L BUN (7-18) mg/dL Creatinine (0.6-1.0) mg/dL Est Cr Clr Drug Dosing Estimated GFR (MDRD) (>60) Glucose (74-106) mg/dL Lactic Acid 0.8 (0.4-2.0) mmol/L Calcium (8.5-10.1) mg/dL Ferritin (8-388) ng/ml Total Bilirubin (0.2-1.0) mg/dL AST (15-37) U/L ALT (12-78) U/L Alkaline Phosphatase (46-116) U/L Lactate Dehydrogenase (82-234) U/L Troponin I (0.000-0.056) ng/mL C-Reactive Protein (0.0-0.3) mg/dL Total Protein (6.4-8.2) g/dL Albumin (3.4-5.0) g/dL Globulin (2.3-3.5) g/dL Albumin/Globulin Ratio (1.2-2.2) Procalcitonin < 0.05 ng/mL SARS CoV-2 RNA Rapid WHIT Result Diagrams: 08/20/21 20:05 08/20/21 20:05 Sepsis Event Note - Evaluation Sepsis Screening Result: No Definite Risk - Focused Exam Vital Signs: Vital Signs Temp Pulse Resp BP Pulse Ox 08/20/21 22:20 76 14 123/48 L 95 08/20/21 22:04 75 16 130/56 L 93 L 08/20/21 21:49 75 19 122/57 L 93 L 08/20/21 21:34 73 20 114/64 91 L 08/20/21 21:19 76 10 L 111/56 L 96 08/20/21 21:04 75 14 107/50 L 96 08/20/21 20:49 76 14 119/62 95 08/20/21 20:29 74 16 123/55 L 95 08/20/21 19:44 97.5 F 95 16 106/58 L 95 - Problem List (1) Stroke SNOMED Code(s): 861110352 ICD Code: I63.9 - CEREBRAL INFARCTION, UNSPECIFIED Status: Acute Priority: High Current Visit: Yes Qualifiers: CVA mechanism: other Qualified Code(s): I63.89 - Other cerebral infarction (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 SNOMED Code(s): 43705116, 335582227 ICD Code: I50.40 - UNSP COMBINED SYSTOLIC AND DIASTOLIC (CONGESTIVE) HRT FAIL Status: Chronic Priority: Low Current Visit: Yes Qualifiers: Heart failure chronicity: chronic Qualified Code(s): I50.42 - Chronic combined systolic (congestive) and diastolic (congestive) heart failure (3) COVID-19 SNOMED Code(s): 144283084 ICD Code: U07.1 - COVID-19 Status: Acute Priority: Medium Current Visit: Yes (4) Essential hypertension SNOMED Code(s): 20667034 ICD Code: I10 - ESSENTIAL (PRIMARY) HYPERTENSION Status: Chronic Priority: Medium Current Visit: Yes Problem List Initiated/Reviewed/Updated: Yes Orders Last 24hrs: Active Orders 24 hr Category Date Time Status Patient Status Manage Transfer [TRANSFER] Routine ADT 08/20/21 22:42 Active Assess Neurological Status [RC] CONTINUOUS Care 08/20/21 19:47 Active Blood Glucose Check, Bedside [RC] STAT Care 08/20/21 19:47 Active Cardiac Monitoring [RC] CONTINUOUS Care 08/20/21 19:47 Active Communication Order [RC] STAT Care 08/20/21 19:47 Active Height and Weight [RC] UPON Care 08/20/21 19:47 Active NIH Stroke Scale [RC] Q15M Care 08/20/21 19:47 Active NIH Stroke Scale [RC] STAT Care 08/20/21 19:47 Active Oxygen Therapy, ED [RC] ASDIRECTED Care 08/20/21 19:47 Active Peripheral IV Care [RC] . DIRECTED Care 08/20/21 19:47 Active Vital Signs [RC] Q15M Care 08/20/21 19:47 Active [place] Bedside Swallow Assessment [RC] ASDIRECTED Care 08/20/21 19:47 Active Iopamidol [Isovue-370 (76%)] Med 08/20/21 20:45 Active 100 ml IV . DIRECTED Sodium Chloride 0.9% [Normal Saline] 100 ml Med 08/20/21 20:45 Active IV ASDIRECTED Sodium Chloride 0.9% [Saline Flush] Med 08/20/21 19:45 Active 10 ml FLUSH ASDIRECTED PRN Peripheral IV Insertion Adult [OM.PC] Stat Oth 08/20/21 19:47 Ordered Peripheral IV Insertion Adult [OM.PC] Stat Oth 08/20/21 19:47 Ordered Resuscitation Status Routine Resus Stat 08/20/21 22:45 Ordered EKG 12 Lead [EK] Stat Ther 08/20/21 19:47 Ordered Medication Orders Sodium Chloride (Normal Saline) 100 mls @ 3.5 mls/sec IV ASDIRECTED [facility] Last Admin: 08/20/21 22:58 Dose: 4 mls/sec Documented by: TALA Iopamidol (Iopamidol 755 Mg/Ml 100 Ml Bottle) 100 ml IV . DIRECTED [facility] Last Admin: 08/20/21 22:59 Dose: 100 ml Documented by: TALA Sodium Chloride (Sodium Chloride 0.9% 10 Ml Syringe) 10 ml FLUSH ASDIRECTED PRN PRN Reason: Keep Vein Open Last Admin: 08/20/21 20:31 Dose: 10 ml Documented by: ARDEN Assessment/Plan Comment:: Assessment/Plan Comment:: ASSESSMENT AND PLAN Stroke- this is a 81 year old female present to ER via POV with Son, concerns of double vision, headache and unstable balance after having a angioplasty at 1030 am on 08/19/2021. Consulted with Neurologist at [facility] [place]. He recommends the following. -Echo in am -MRI and MRA of brain -IV fluids- Normal Saline at 100 ml/hr -antiplatelet therapy- Brilinta po bid -statins -Telemetry -neuro check -am labs cbc, bmp, ua with micro Congestive Heart failure - denies any chest pain, shortness of breath or edema -home medication PO Laxis 40 mg. daily -Supplement oxygen as needed -continue outpatient medications -telemetry overnight then discontinue COVID-19 positive screening- without hypoxia, not vaccinated. Tested positive on August 20, 2021. -Monoclononal antibodies therapy -Supplement oxygen as needed -Isolation precautions Maintenance issues -Orders home meds: chronic medication -Nutrition: soft diet due to recent dental surgery-all teeth removed for dentures -Bunn catheter - not indicated -DVT - Lovenox 40 mg po bid CODE STATUS: FULL Admission status: Admit to Med-Surg Covid Precautions Admission justification. This patient will be admitted for inpatient services and is medically appropriate meeting medical necessity for inpatient admission as outlined in my documentation. I reasonably expect the patient will require inpatient services that span. Time over 2 midnights. I reasonably expect this patient to be discharged or transferred within 96 hours after admission to the critical access hospital. Disposition: discharge back to home with Son. Primary care provider: [facility] Hospitalist: Dr. Lux - Mortality Measure Prognosis:: Good
[2021-08-20] MEDS ORDERED: Ondansetron 4 MG Tab.DIS PO PRN (23:37)
[2021-08-20] MEDS ORDERED: Acetaminophen 325 MG Tab PO PRN (23:37)
[2021-08-20] MEDS ORDERED: Docusate Sodium 100 MG Cap PO PRN (23:37)
[2021-08-20] MEDS ORDERED: Morphine 2 MG/ML SYRINGE IVPUSH PRN (23:37)
[2021-08-20] MEDS ORDERED: Sodium Chloride 0.9% 1,000 ML IV SCH (23:37)
[2021-08-20] MEDS ORDERED: Nitroglycerin 0.4 MG Tab.SL SL SCH (23:37)
[2021-08-20] MEDS ORDERED: Pantoprazole 40 MG Vial IV SCH (23:37)
[2021-08-20] MEDS ORDERED: oxyCODONE 5 MG Tab PO PRN (23:37)
[2021-08-20] MEDS ORDERED: diphenhydrAMINE 25 MG Cap PO PRN (23:37)
[2021-08-20] MEDS ORDERED: Bisacodyl 5 MG Tab PO PRN (23:37)
[2021-08-21] MEDS: Acetaminophen 325 MG Tab PO PRN ×2 (00:31→08:38)
[2021-08-21] MEDS: Enoxaparin 40 MG/0.4 ML Syringe SUBCUT SCH ×2 (00:33→08:38)
[2021-08-21] MEDS: Ticagrelor 90 MG Tab PO SCH ×3 (00:34→22:01)
[2021-08-21] MEDS ORDERED: Calcium Carbonate 500 MG Tab.Chew PO ONE (04:01)
[2021-08-21] MEDS ORDERED: LORazepam 0.5 MG Tab PO PRN (04:02)
[2021-08-21] MEDS: Carvedilol 3.125 MG Tab PO SCH ×2 (08:35→17:06)
[2021-08-21] MEDS: Spironolactone 25 MG Tab PO SCH (08:36)
[2021-08-21] MEDS: Furosemide 40 MG Tab PO SCH (08:37)
[2021-08-21] MEDS: Rosuvastatin 10 MG Tab PO SCH (08:37)
[2021-08-21] MEDS ORDERED: Potassium Chloride 20 MEQ Tab.ER PO ONE ×2 (09:30→17:00)
[2021-08-21] MEDS ORDERED: Famotidine 20 MG/2 ML SDV IVPUSH PRN (14:14)
[2021-08-21] MEDS ORDERED: diphenhydrAMINE 50 MG/ML SDV IVPUSH PRN (14:14)
[2021-08-21] MEDS ORDERED: EPINEPHrine 1 MG/ML SDV IM PRN (14:14)
[2021-08-21] MEDS ORDERED: methylPREDNISolone Sodium Succinate 125 MG/2 ML SDV IVPUSH PRN (14:14)
--- NOTE | 2021-08-21 14:24 | PCM.PN ---
- General Info Date of Service: 08/21/21 Subjective Update: Ms. Gamez 81-year-old woman who was admitted through the emergency room last night with double vision. On the day prior to admission she had undergone a cardiac angiogram with plasty. After discharge she noted symptoms of diplopia that seem to come and go throughout the day. Yesterday experienced diplopia throughout the day which was continuous. She presented to the emergency department last night and is felt to have had a subacute CVA resulting in her symptoms. Neurology was contacted and recommended admission with further evaluation including MRI/MRA and echocardiogram. She was started on antiplatelet therapy and has been stable since admission with no new neurologic symptoms but does continue to experience diplopia. On evaluation the emergency department was also found to be Covid positive, she denies significant symptoms. Functional Status: Reports: Tolerating Diet, Ambulating, Urinating - Review of Systems General: Reports: Weakness, Fatigue. Denies: Fever, Chills Pulmonary: Reports: No Symptoms Cardiovascular: Reports: No Symptoms Gastrointestinal: Reports: No Symptoms Neurological: Reports: Other (Diplopia) - Patient Data Vitals - Most Recent: Last Vital Signs Temp 97.5 F 08/21/21 12:31 Pulse 65 08/21/21 12:31 Resp 18 08/21/21 12:31 BP 121/50 L 08/21/21 12:31 Pulse Ox 94 L 08/21/21 12:31 Weight - Most Recent: 164 lb 7.437 oz I&O - Last 24 Hours: Intake & Output 08/20/21 08/21/21 08/21/21 22:59 06:59 14:59 Intake Total 444 Output Total 300 Balance 444 -300 Lab Results Last 24 Hours: Laboratory Results - last 24 hr 08/20/21 08/20/21 08/20/21 Range/Units 20:05 20:05 20:05 WBC 4.4 L (4.5-11.0) K/uL RBC 4.24 (3.30-5.50) M/uL Hgb 12.7 (12.0-15.0) g/dL Hct 38.9 (36.0-48.0) % MCV 92 (80-98) fL MCH 30 (27-31) pg MCHC 33 (32-36) % Plt Count 219 (150-400) K/uL Neut % (Auto) 60.3 (36-66) % Lymph % (Auto) 26.1 (24-44) % [place] % (Auto) 10.6 H (2-6) % Eos % (Auto) 2.8 (2-4) % Baso % (Auto) 0.2 (0-1) % PT 10.4 (9.2-10.6) sec INR 1.0 APTT 29.8 (21.4-31.8) sec D-Dimer, Quantitative (0.0-500.0) ng/mL Sodium 142 (140-148) mmol/L Potassium 3.7 (3.6-5.2) mmol/L Chloride 103 (100-108) mmol/L Carbon Dioxide 24 (21-32) mmol/L Anion Gap 15.5 H (5.0-14.0) mmol/L BUN 16 (7-18) mg/dL Creatinine 1.2 H (0.6-1.0) mg/dL Est Cr Clr Drug Dosing TNP Estimated GFR (MDRD) 43 L (>60) Glucose 100 (74-106) mg/dL Lactic Acid (0.4-2.0) mmol/L Calcium 8.6 (8.5-10.1) mg/dL Ferritin (8-388) ng/ml Total Bilirubin 0.3 (0.2-1.0) mg/dL AST 23 (15-37) U/L ALT 20 (12-78) U/L Alkaline Phosphatase 78 (46-116) U/L Lactate Dehydrogenase (82-234) U/L Troponin I 0.469 H* (0.000-0.056) ng/mL C-Reactive Protein (0.0-0.3) mg/dL Total Protein 7.2 (6.4-8.2) g/dL Albumin 3.4 (3.4-5.0) g/dL Globulin 3.8 H (2.3-3.5) g/dL Albumin/Globulin Ratio 0.9 L (1.2-2.2) Procalcitonin ng/mL SARS CoV-2 RNA Rapid WHIT 08/20/21 08/20/21 08/20/21 Range/Units 21:07 21:28 21:28 WBC (4.5-11.0) K/uL RBC (3.30-5.50) M/uL Hgb (12.0-15.0) g/dL Hct (36.0-48.0) % MCV (80-98) fL MCH (27-31) pg MCHC (32-36) % Plt Count (150-400) K/uL Neut % (Auto) (36-66) % Lymph % (Auto) (24-44) % [place] % (Auto) (2-6) % Eos % (Auto) (2-4) % Baso % (Auto) (0-1) % PT (9.2-10.6) sec INR APTT (21.4-31.8) sec D-Dimer, Quantitative 1658.33 H (0.0-500.0) ng/mL Sodium (140-148) mmol/L Potassium (3.6-5.2) mmol/L Chloride (100-108) mmol/L Carbon Dioxide (21-32) mmol/L Anion Gap (5.0-14.0) mmol/L BUN (7-18) mg/dL Creatinine (0.6-1.0) mg/dL Est Cr Clr Drug Dosing Estimated GFR (MDRD) (>60) Glucose (74-106) mg/dL Lactic Acid (0.4-2.0) mmol/L Calcium (8.5-10.1) mg/dL Ferritin 185 (8-388) ng/ml Total Bilirubin (0.2-1.0) mg/dL AST (15-37) U/L ALT (12-78) U/L Alkaline Phosphatase (46-116) U/L Lactate Dehydrogenase 169 (82-234) U/L Troponin I (0.000-0.056) ng/mL C-Reactive Protein 1.74 H (0.0-0.3) mg/dL Total Protein (6.4-8.2) g/dL Albumin (3.4-5.0) g/dL Globulin (2.3-3.5) g/dL Albumin/Globulin Ratio (1.2-2.2) Procalcitonin ng/mL SARS CoV-2 RNA Rapid WHIT Positive H 08/20/21 08/20/21 08/21/21 Range/Units 21:28 21:28 05:11 WBC 4.8 (4.5-11.0) K/uL RBC 3.85 (3.30-5.50) M/uL Hgb 11.6 L (12.0-15.0) g/dL Hct 35.7 L (36.0-48.0) % MCV 93 (80-98) fL MCH 30 (27-31) pg MCHC 33 (32-36) % Plt Count 193 (150-400) K/uL Neut % (Auto) 60.6 (36-66) % Lymph % (Auto) 24.4 (24-44) % [place] % (Auto) 11.6 H (2-6) % Eos % (Auto) 3.2 (2-4) % Baso % (Auto) 0.2 (0-1) % PT (9.2-10.6) sec INR APTT (21.4-31.8) sec D-Dimer, Quantitative (0.0-500.0) ng/mL Sodium (140-148) mmol/L Potassium (3.6-5.2) mmol/L Chloride (100-108) mmol/L Carbon Dioxide (21-32) mmol/L Anion Gap (5.0-14.0) mmol/L BUN (7-18) mg/dL Creatinine (0.6-1.0) mg/dL Est Cr Clr Drug Dosing Estimated GFR (MDRD) (>60) Glucose (74-106) mg/dL Lactic Acid 0.8 (0.4-2.0) mmol/L Calcium (8.5-10.1) mg/dL Ferritin (8-388) ng/ml Total Bilirubin (0.2-1.0) mg/dL AST (15-37) U/L ALT (12-78) U/L Alkaline Phosphatase (46-116) U/L Lactate Dehydrogenase (82-234) U/L Troponin I (0.000-0.056) ng/mL C-Reactive Protein (0.0-0.3) mg/dL Total Protein (6.4-8.2) g/dL Albumin (3.4-5.0) g/dL Globulin (2.3-3.5) g/dL Albumin/Globulin Ratio (1.2-2.2) Procalcitonin < 0.05 ng/mL SARS CoV-2 RNA Rapid WHIT 08/21/21 Range/Units 06:00 WBC (4.5-11.0) K/uL RBC (3.30-5.50) M/uL Hgb (12.0-15.0) g/dL Hct (36.0-48.0) % MCV (80-98) fL MCH (27-31) pg MCHC (32-36) % Plt Count (150-400) K/uL Neut % (Auto) (36-66) % Lymph % (Auto) (24-44) % [place] % (Auto) (2-6) % Eos % (Auto) (2-4) % Baso % (Auto) (0-1) % PT (9.2-10.6) sec INR APTT (21.4-31.8) sec D-Dimer, Quantitative (0.0-500.0) ng/mL Sodium 144 (140-148) mmol/L Potassium 3.4 L (3.6-5.2) mmol/L Chloride 106 (100-108) mmol/L Carbon Dioxide 25 (21-32) mmol/L Anion Gap 16.4 H (5.0-14.0) mmol/L BUN 18 (7-18) mg/dL Creatinine 1.2 H (0.6-1.0) mg/dL Est Cr Clr Drug Dosing 32.29 Estimated GFR (MDRD) 43 L (>60) Glucose 92 (74-106) mg/dL Lactic Acid (0.4-2.0) mmol/L Calcium 8.2 L (8.5-10.1) mg/dL Ferritin (8-388) ng/ml Total Bilirubin (0.2-1.0) mg/dL AST (15-37) U/L ALT (12-78) U/L Alkaline Phosphatase (46-116) U/L Lactate Dehydrogenase (82-234) U/L Troponin I (0.000-0.056) ng/mL C-Reactive Protein (0.0-0.3) mg/dL Total Protein (6.4-8.2) g/dL Albumin (3.4-5.0) g/dL Globulin (2.3-3.5) g/dL Albumin/Globulin Ratio (1.2-2.2) Procalcitonin ng/mL SARS CoV-2 RNA Rapid WHIT Med Orders - Current: Current Medications Acetaminophen (Acetaminophen 325 Mg Tab) 650 mg PO Q4H PRN PRN Reason: Fever Greater Than 101 Last Admin: 08/21/21 08:38 Dose: 650 mg Documented by: Acetaminophen (Acetaminophen 325 Mg Tab) 650 mg PO Q4H PRN PRN Reason: Pain (Mild 1-3)/fever Bisacodyl (Bisacodyl 5 Mg Tab) 5 mg PO DAILY PRN PRN Reason: Constipation Carvedilol (Carvedilol 3.125 Mg Tab) 3.125 mg PO BIDMEALS [facility] Last Admin: 08/21/21 08:35 Dose: 3.125 mg Documented by: Diphenhydramine HCl (Diphenhydramine 25 Mg Cap) 25 mg PO BEDTIME PRN PRN Reason: Insomnia Diphenhydramine HCl (Diphenhydramine 50 Mg/Ml Sdv) 50 mg IVPUSH ASDIRECTED PRN PRN Reason: hypersensitivity reaction Docusate Sodium (Docusate Sodium 100 Mg Cap) 100 mg PO BID PRN PRN Reason: Constipation Last Admin: 08/21/21 00:34 Dose: 100 mg Documented by: Enoxaparin Sodium (Enoxaparin 40 Mg/0.4 Ml Syringe) 40 mg SUBCUT DAILY [facility] Last Admin: 08/21/21 08:38 Dose: 40 mg Documented by: Epinephrine HCl (Epinephrine 1 Mg/Ml Sdv) 0.3 mg IM ASDIRECTED PRN PRN Reason: hypersensitivity reaction Famotidine (Famotidine 20 Mg/2 Ml Sdv) 20 mg IVPUSH ASDIRECTED PRN PRN Reason: hypersensitivity reaction Furosemide (Furosemide 40 Mg Tab) 40 mg PO DAILY [facility] Last Admin: 08/21/21 08:37 Dose: 40 mg Documented by: Bamlanivimab 700 mg/Etesevimab 1,400 mg/ Sodium Chloride 160 mls @ 310 mls/hr IV ONETIME ONE Stop: 08/21/21 14:44 Lorazepam (Lorazepam 0.5 Mg Tab) 0.5 mg PO ONETIME PRN PRN Reason: Pain Melatonin (Melatonin 3 Mg Tab) 6 mg PO BEDTIME [facility] Methylprednisolone Sodium Succinate (Methylprednisolone Sodium Succinate 125 Mg/2 Ml Sdv) 125 mg IVPUSH ASDIRECTED PRN PRN Reason: hypersensitivity reaction Morphine Sulfate (Morphine 2 Mg/Ml Syringe) 2 mg IVPUSH Q2H PRN PRN Reason: Pain (severe 7-10) Nitroglycerin (Nitroglycerin 0.4 Mg Tab.Sl) 0.4 mg SL ASDIRECTED [facility] Ondansetron HCl (Ondansetron 4 Mg Tab.Dis) 4 mg PO Q6H PRN PRN Reason: Nausea able to take PO Oxycodone HCl (Oxycodone 5 Mg Tab) 5 mg PO Q4H PRN PRN Reason: Pain (moderate 4-6) Last Admin: 08/21/21 00:33 Dose: 5 mg Documented by: Pantoprazole Sodium (Pantoprazole 40 Mg Tab.Cr) 40 mg PO BEDTIME [facility]BERTO Potassium Chloride (Potassium Chloride 20 Meq Tab.Er) 40 meq PO ONETIME ONE Stop: 08/21/21 17:01 Rosuvastatin Calcium (Rosuvastatin 10 Mg Tab) 5 mg PO DAILY [facility] Last Admin: 08/21/21 08:37 Dose: 5 mg Documented by: Sodium Chloride (Sodium Chloride 0.9% 10 Ml Syringe) 10 ml FLUSH ASDIRECTED PRN PRN Reason: Keep Vein Open Last Admin: 08/20/21 20:31 Dose: 10 ml Documented by: Sodium Chloride (Sodium Chloride 0.9% 10 Ml Syringe) 30 ml FLUSH ASDIRECTED [facility] Spironolactone (Spironolactone 25 Mg Tab) 25 mg PO DAILY [facility] Last Admin: 08/21/21 08:36 Dose: 25 mg Documented by: Ticagrelor (Ticagrelor 90 Mg Tab) 90 mg PO BID [facility] Last Admin: 08/21/21 08:37 Dose: 90 mg Documented by: Discontinued Medications Calcium Carbonate/Glycine (Calcium Carbonate 500 Mg Tab.Chew) 1,000 mg PO ONETIME ONE Stop: 08/21/21 04:02 Last Admin: 08/21/21 05:30 Dose: Not Given Documented by: Sodium Chloride (Normal Saline) 100 mls @ 3.5 mls/sec IV ASDIRECTED [facility] Last Admin: 08/20/21 22:58 Dose: 4 mls/sec Documented by: Sodium Chloride (Normal Saline) 1,000 mls @ 100 mls/hr IV ASDIRECTED [facility] Last Admin: 08/21/21 00:36 Dose: 100 mls/hr Documented by: Iopamidol (Iopamidol 755 Mg/Ml 100 Ml Bottle) 100 ml IV . DIRECTED [facility] Last Admin: 08/20/21 22:59 Dose: 100 ml Documented by: Pantoprazole Sodium (Pantoprazole 40 Mg Vial) 40 mg IV BEDTIME [facility] Last Admin: 08/21/21 00:32 Dose: 40 mg Documented by: Potassium Chloride (Potassium Chloride 20 Meq Tab.Er) 40 meq PO ONETIME ONE Stop: 08/21/21 09:31 Last Admin: 08/21/21 11:57 Dose: 40 meq Documented by: Sodium Chloride (Sodium Chloride 0.9% 10 Ml Syringe) 10 ml FLUSH ONETIME ONE Stop: 08/20/21 20:40 Last Admin: 08/20/21 22:58 Dose: 10 ml Documented by: - Exam Quality Assessment: Supplemental Oxygen, DVT Prophylaxis General: Alert, Oriented, Cooperative, Mild Distress Lungs: Clear to Auscultation, Normal Respiratory Effort Cardiovascular: Regular Rate, Regular Rhythm, No Murmurs GI/Abdominal Exam: Soft, Non-Tender, No Organomegaly, No Distention Neurological: Other (Double vision). No: Cranial Nerves Intact - Patient Data Lab Results Last 24 hrs: Laboratory Results - last 24 hr 08/20/21 08/20/21 08/20/21 Range/Units 20:05 20:05 20:05 WBC 4.4 L (4.5-11.0) K/uL RBC 4.24 (3.30-5.50) M/uL Hgb 12.7 (12.0-15.0) g/dL Hct 38.9 (36.0-48.0) % MCV 92 (80-98) fL MCH 30 (27-31) pg MCHC 33 (32-36) % Plt Count 219 (150-400) K/uL Neut % (Auto) 60.3 (36-66) % Lymph % (Auto) 26.1 (24-44) % [place] % (Auto) 10.6 H (2-6) % Eos % (Auto) 2.8 (2-4) % Baso % (Auto) 0.2 (0-1) % PT 10.4 (9.2-10.6) sec INR 1.0 APTT 29.8 (21.4-31.8) sec D-Dimer, Quantitative (0.0-500.0) ng/mL Sodium 142 (140-148) mmol/L Potassium 3.7 (3.6-5.2) mmol/L Chloride 103 (100-108) mmol/L Carbon Dioxide 24 (21-32) mmol/L Anion Gap 15.5 H (5.0-14.0) mmol/L BUN 16 (7-18) mg/dL Creatinine 1.2 H (0.6-1.0) mg/dL Est Cr Clr Drug Dosing TNP Estimated GFR (MDRD) 43 L (>60) Glucose 100 (74-106) mg/dL Lactic Acid (0.4-2.0) mmol/L Calcium 8.6 (8.5-10.1) mg/dL Ferritin (8-388) ng/ml Total Bilirubin 0.3 (0.2-1.0) mg/dL AST 23 (15-37) U/L ALT 20 (12-78) U/L Alkaline Phosphatase 78 (46-116) U/L Lactate Dehydrogenase (82-234) U/L Troponin I 0.469 H* (0.000-0.056) ng/mL C-Reactive Protein (0.0-0.3) mg/dL Total Protein 7.2 (6.4-8.2) g/dL Albumin 3.4 (3.4-5.0) g/dL Globulin 3.8 H (2.3-3.5) g/dL Albumin/Globulin Ratio 0.9 L (1.2-2.2) Procalcitonin ng/mL SARS CoV-2 RNA Rapid WHIT 08/20/21 08/20/21 08/20/21 Range/Units 21:07 21:28 21:28 WBC (4.5-11.0) K/uL RBC (3.30-5.50) M/uL Hgb (12.0-15.0) g/dL Hct (36.0-48.0) % MCV (80-98) fL MCH (27-31) pg MCHC (32-36) % Plt Count (150-400) K/uL Neut % (Auto) (36-66) % Lymph % (Auto) (24-44) % [place] % (Auto) (2-6) % Eos % (Auto) (2-4) % Baso % (Auto) (0-1) % PT (9.2-10.6) sec INR APTT (21.4-31.8) sec D-Dimer, Quantitative 1658.33 H (0.0-500.0) ng/mL Sodium (140-148) mmol/L Potassium (3.6-5.2) mmol/L Chloride (100-108) mmol/L Carbon Dioxide (21-32) mmol/L Anion Gap (5.0-14.0) mmol/L BUN (7-18) mg/dL Creatinine (0.6-1.0) mg/dL Est Cr Clr Drug Dosing Estimated GFR (MDRD) (>60) Glucose (74-106) mg/dL Lactic Acid (0.4-2.0) mmol/L Calcium (8.5-10.1) mg/dL Ferritin 185 (8-388) ng/ml Total Bilirubin (0.2-1.0) mg/dL AST (15-37) U/L ALT (12-78) U/L Alkaline Phosphatase (46-116) U/L Lactate Dehydrogenase 169 (82-234) U/L Troponin I (0.000-0.056) ng/mL C-Reactive Protein 1.74 H (0.0-0.3) mg/dL Total Protein (6.4-8.2) g/dL Albumin (3.4-5.0) g/dL Globulin (2.3-3.5) g/dL Albumin/Globulin Ratio (1.2-2.2) Procalcitonin ng/mL SARS CoV-2 RNA Rapid WHIT Positive H 08/20/21 08/20/21 08/21/21 Range/Units 21:28 21:28 05:11 WBC 4.8 (4.5-11.0) K/uL RBC 3.85 (3.30-5.50) M/uL Hgb 11.6 L (12.0-15.0) g/dL Hct 35.7 L (36.0-48.0) % MCV 93 (80-98) fL MCH 30 (27-31) pg MCHC 33 (32-36) % Plt Count 193 (150-400) K/uL Neut % (Auto) 60.6 (36-66) % Lymph % (Auto) 24.4 (24-44) % [place] % (Auto) 11.6 H (2-6) % Eos % (Auto) 3.2 (2-4) % Baso % (Auto) 0.2 (0-1) % PT (9.2-10.6) sec INR APTT (21.4-31.8) sec D-Dimer, Quantitative (0.0-500.0) ng/mL Sodium (140-148) mmol/L Potassium (3.6-5.2) mmol/L Chloride (100-108) mmol/L Carbon Dioxide (21-32) mmol/L Anion Gap (5.0-14.0) mmol/L BUN (7-18) mg/dL Creatinine (0.6-1.0) mg/dL Est Cr Clr Drug Dosing Estimated GFR (MDRD) (>60) Glucose (74-106) mg/dL Lactic Acid 0.8 (0.4-2.0) mmol/L Calcium (8.5-10.1) mg/dL Ferritin (8-388) ng/ml Total Bilirubin (0.2-1.0) mg/dL AST (15-37) U/L ALT (12-78) U/L Alkaline Phosphatase (46-116) U/L Lactate Dehydrogenase (82-234) U/L Troponin I (0.000-0.056) ng/mL C-Reactive Protein (0.0-0.3) mg/dL Total Protein (6.4-8.2) g/dL Albumin (3.4-5.0) g/dL Globulin (2.3-3.5) g/dL Albumin/Globulin Ratio (1.2-2.2) Procalcitonin < 0.05 ng/mL SARS CoV-2 RNA Rapid WHIT 08/21/21 Range/Units 06:00 WBC (4.5-11.0) K/uL RBC (3.30-5.50) M/uL Hgb (12.0-15.0) g/dL Hct (36.0-48.0) % MCV (80-98) fL MCH (27-31) pg MCHC (32-36) % Plt Count (150-400) K/uL Neut % (Auto) (36-66) % Lymph % (Auto) (24-44) % [place] % (Auto) (2-6) % Eos % (Auto) (2-4) % Baso % (Auto) (0-1) % PT (9.2-10.6) sec INR APTT (21.4-31.8) sec D-Dimer, Quantitative (0.0-500.0) ng/mL Sodium 144 (140-148) mmol/L Potassium 3.4 L (3.6-5.2) mmol/L Chloride 106 (100-108) mmol/L Carbon Dioxide 25 (21-32) mmol/L Anion Gap 16.4 H (5.0-14.0) mmol/L BUN 18 (7-18) mg/dL Creatinine 1.2 H (0.6-1.0) mg/dL Est Cr Clr Drug Dosing 32.29 Estimated GFR (MDRD) 43 L (>60) Glucose 92 (74-106) mg/dL Lactic Acid (0.4-2.0) mmol/L Calcium 8.2 L (8.5-10.1) mg/dL Ferritin (8-388) ng/ml Total Bilirubin (0.2-1.0) mg/dL AST (15-37) U/L ALT (12-78) U/L Alkaline Phosphatase (46-116) U/L Lactate Dehydrogenase (82-234) U/L Troponin I (0.000-0.056) ng/mL C-Reactive Protein (0.0-0.3) mg/dL Total Protein (6.4-8.2) g/dL Albumin (3.4-5.0) g/dL Globulin (2.3-3.5) g/dL Albumin/Globulin Ratio (1.2-2.2) Procalcitonin ng/mL SARS CoV-2 RNA Rapid WHIT Result Diagrams: 08/21/21 05:11 08/21/21 06:00 Sepsis Event Note - Evaluation Sepsis Screening Result: No Definite Risk - Focused Exam Vital Signs: Vital Signs Temp Pulse Pulse Resp BP BP Pulse Ox 08/21/21 12:31 97.5 F 65 18 121/50 L 94 L 08/21/21 08:35 68 140/54 L 08/21/21 07:13 98 08/21/21 07:00 97.5 F 72 16 140/54 L 94 L 08/21/21 02:41 97.5 F 66 20 129/51 L 95 - Problem List Review Problem List Initiated/Reviewed/Updated: Yes - My Orders Last 24 Hours: My Active Orders 08/21/21 14:03 Convert IV to Saline Lock [OM.PC] Routine 08/21/21 14:14 Bamlanivimab 700 MG,Etesevimab 1,400 MG in Sodium Chloride 0.9%(160ml) Bamlanivimab 700 mg Etesevimab [Etesevimab (EUA)] 1,400 mg Sodium Chloride 0.9% [Normal Saline] 100 ml IV ONETIME EPINEPHrine [Adrenalin] 0.3 mg IM ASDIRECTED PRN Famotidine [Pepcid] 20 mg IVPUSH ASDIRECTED PRN diphenhydrAMINE [Benadryl] 50 mg IVPUSH ASDIRECTED PRN methylPREDNISolone Sod Succ [Solu-MEDROL] 125 mg IVPUSH ASDIRECTED PRN 08/21/21 14:15 Sodium Chloride 0.9% [Saline Flush] 30 ml FLUSH ASDIRECTED 08/21/21 14:17 Vital Signs [RC] Q15M 08/21/21 17:00 Potassium Chloride [Klor-Con M20] 40 meq PO ONETIME ONE 08/22/21 05:11 POTASSIUM,K [CHEM] AM - Plan Plan:: ASSESSMENT AND PLAN CVA-symptoms of diplopia -Echo tomorrow -MRI and MRA of brain later today -Saline lock -antiplatelet therapy- Brilinta po bid -statins -Telemetry -neuro check Congestive Heart failure - denies any chest pain, shortness of breath or edema -home medication PO Laxis 40 mg. daily -Supplement oxygen as needed -continue outpatient medications COVID-19 positive screening- without hypoxia, not vaccinated. Tested positive on August 20, 2021. -Monoclononal antibodies therapy today -Supplement oxygen as needed -Isolation precautions Maintenance issues -Orders home meds: chronic medication -Nutrition: soft diet due to recent dental surgery-all teeth removed for dentures -Bunn catheter - not indicated -DVT - Lovenox 40 mg po bid CODE STATUS: FULL Admission status: Admit to Med-Surg Covid Precautions Admission justification. This patient will be admitted for inpatient services and is medically appropriate meeting medical necessity for inpatient admission as outlined in my documentation. I reasonably expect the patient will require inpatient services that span. Time over 2 midnights. I reasonably expect this patient to be discharged or transferred within 96 hours after admission to the critical access hospital. Disposition: discharge back to home with Son. Primary care provider: [facility] Hospitalist: Dr. Lux
[2021-08-21] MEDS ORDERED: Bamlanivimab 700 MG, ETESEVIMAB 1,400 MG in Sodium Chloride 0.9% 100 ML IV ONE (16:00)
[2021-08-21] MEDS ORDERED: Gadoteridol 279.3 MG/ML 15 ML SDV IV SCH (16:00)
[2021-08-21] MEDS ORDERED: Sodium Chloride 0.9% 10 ML Syringe FLUSH ONE (16:30)
--- NOTE | 2021-08-21 16:58 | CRLMR ---
For Patients: As a result of the Century Cures Act, medical imaging exams and procedure reports are released immediately into your electronic medical record. You may view this report before your referring provider. If you have questions, please contact your health care provider. INDICATION: Stroke symptoms. TECHNIQUE: MRI brain: Multiplanar multisequence MR images acquired through the brain prior to and following intravenous contrast. MRA head: [id number] imaging acquired. COMPARISON: CTA head and neck 08/20/2021. FINDINGS: MRI brain: Small foci of diffusion restriction within the medial left thalamus, parasagittal rostral left midbrain, and superomedial right occipital lobe demonstrating mild T2 prolongation, compatible with acute to early subacute infarctions. Additional punctate recent infarction within the anterior right frontal lobe. Prominence of the ventricles and sulci compatible with mild diffuse cerebral volume loss. No hydrocephalus. Scattered T2 FLAIR hyperintensities in the supratentorial white matter, typical for mild chronic microvascular ischemic changes with superimposed chronic lacunar infarctions in the right pastrana radiata, bilateral basal ganglia, and cerebellar hemispheres. Small to moderate chronic infarction inferior right occipital lobe. No intracranial hemorrhage or pathologic extra-axial fluid collection. No pathologic intracranial enhancement. The major arterial flow voids of the skullbase are preserved. Thinning of the ocular lenses. Small right maxillary sinus attention cyst or polyp. The mastoid air cells are clear. MRA head: The visualized internal carotid, middle cerebral, and anterior cerebral arteries are widely patent. Mild narrowing of the right posterior cerebral artery distal P2 segment. The vertebral, basilar and left posterior cerebral arteries are widely patent. No intracranial aneurysm. IMPRESSION: 1. Small acute to early subacute infarctions within the medial left thalamus, rostral left midbrain, and superomedial right occipital lobe. 2. Small to moderate chronic infarction in the inferior right occipital lobe. 3. Mild chronic microvascular ischemic changes with superimposed chronic lacunar infarctions in the basal ganglia and cerebellar hemispheres. 4. MRA head demonstrates mild narrowing of the right posterior cerebral artery distal P2 segment. The visualized intracranial arteries are otherwise widely patent. Dictated by Kraig Hutchinson MD @ 08/21/2021 4:58:18 PM (Electronically Signed)
[2021-08-21] MEDS: Aspirin 81 MG Tab.Chew PO SCH (17:06)
[2021-08-21] MEDS: Pantoprazole 40 MG Tab.CR PO SCH (22:01)
[2021-08-21] MEDS: Melatonin 3 MG Tab PO SCH (22:02)
[2021-08-22] MEDS: Furosemide 40 MG Tab PO SCH (08:34)
[2021-08-22] MEDS: Carvedilol 3.125 MG Tab PO SCH ×2 (08:35→16:11)
[2021-08-22] MEDS: Enoxaparin 40 MG/0.4 ML Syringe SUBCUT SCH (08:36)
[2021-08-22] MEDS: Ticagrelor 90 MG Tab PO SCH ×2 (08:36→20:48)
[2021-08-22] MEDS: Aspirin 81 MG Tab.Chew PO SCH (08:36)
[2021-08-22] MEDS: Rosuvastatin 10 MG Tab PO SCH (08:36)
[2021-08-22] MEDS: Spironolactone 25 MG Tab PO SCH (11:42)
--- NOTE | 2021-08-22 14:47 | PCM.PN ---
- General Info Date of Service: 08/22/21 Subjective Update: Ms. Gamez has remained stable since yesterday, she continues to experience diplopia. She did receive monoclonal antibody infusion yesterday. MRI/MRA shows evidence of three small subacute infarcts as well as a moderate size older infarct. Denies new neurologic symptoms. Echocardiogram obtained today, results are pending Functional Status: Reports: Tolerating Diet, Urinating - Review of Systems General: Reports: Weakness, Fatigue. Denies: Fever, Chills Pulmonary: Reports: No Symptoms Cardiovascular: Reports: No Symptoms Gastrointestinal: Reports: No Symptoms Neurological: Reports: Other (Double vision) - Patient Data Vitals - Most Recent: Last Vital Signs Temp 97.7 F 08/22/21 11:54 Pulse 82 08/22/21 11:54 Resp 18 08/22/21 11:54 BP 128/48 L 08/22/21 11:54 Pulse Ox 96 08/22/21 11:54 Weight - Most Recent: 164 lb I&O - Last 24 Hours: Intake & Output 08/21/21 08/22/21 08/22/21 22:59 06:59 14:59 Intake Total 600 Balance 600 Lab Results Last 24 Hours: Laboratory Results - last 24 hr 08/21/21 08/22/21 Range/Units 16:38 05:30 Potassium 4.3 (3.6-5.2) mmol/L SARS CoV-2 RNA Rapid WHIT Positive H Med Orders - Current: Current Medications Acetaminophen (Acetaminophen 325 Mg Tab) 650 mg PO Q4H PRN PRN Reason: Fever Greater Than 101/PAIN Last Admin: 08/21/21 08:38 Dose: 650 mg Documented by: Aspirin (Aspirin 81 Mg Tab.Chew) 81 mg PO DAILY [facility] Last Admin: 08/22/21 08:36 Dose: 81 mg Documented by: Bisacodyl (Bisacodyl 5 Mg Tab) 5 mg PO DAILY PRN PRN Reason: Constipation Carvedilol (Carvedilol 3.125 Mg Tab) 3.125 mg PO BIDMEALS [facility] Last Admin: 08/22/21 08:35 Dose: 3.125 mg Documented by: Diphenhydramine HCl (Diphenhydramine 25 Mg Cap) 25 mg PO BEDTIME PRN PRN Reason: Insomnia Docusate Sodium (Docusate Sodium 100 Mg Cap) 100 mg PO BID PRN PRN Reason: Constipation Last Admin: 08/21/21 00:34 Dose: 100 mg Documented by: Enoxaparin Sodium (Enoxaparin 40 Mg/0.4 Ml Syringe) 40 mg SUBCUT DAILY [facility] Last Admin: 08/22/21 08:36 Dose: 40 mg Documented by: Furosemide (Furosemide 40 Mg Tab) 40 mg PO DAILY [facility] Last Admin: 08/22/21 08:34 Dose: 40 mg Documented by: Lorazepam (Lorazepam 0.5 Mg Tab) 0.5 mg PO ONETIME PRN PRN Reason: Pain Melatonin (Melatonin 3 Mg Tab) 6 mg PO BEDTIME [facility] Last Admin: 08/21/21 22:02 Dose: 6 mg Documented by: Morphine Sulfate (Morphine 2 Mg/Ml Syringe) 2 mg IVPUSH Q2H PRN PRN Reason: Pain (severe 7-10) Nitroglycerin (Nitroglycerin 0.4 Mg Tab.Sl) 0.4 mg SL ASDIRECTED [facility] Ondansetron HCl (Ondansetron 4 Mg Tab.Dis) 4 mg PO Q6H PRN PRN Reason: Nausea able to take PO Oxycodone HCl (Oxycodone 5 Mg Tab) 5 mg PO Q4H PRN PRN Reason: Pain (moderate 4-6) Last Admin: 08/21/21 00:33 Dose: 5 mg Documented by: Pantoprazole Sodium (Pantoprazole 40 Mg Tab.Cr) 40 mg PO BEDTIME [facility] Last Admin: 08/21/21 22:01 Dose: 40 mg Documented by: Rosuvastatin Calcium (Rosuvastatin 10 Mg Tab) 5 mg PO DAILY [facility] Last Admin: 08/22/21 08:36 Dose: 5 mg Documented by: Sodium Chloride (Sodium Chloride 0.9% 10 Ml Syringe) 10 ml FLUSH ASDIRECTED PRN PRN Reason: Keep Vein Open Last Admin: 08/20/21 20:31 Dose: 10 ml Documented by: Spironolactone (Spironolactone 25 Mg Tab) 25 mg PO DAILY [facility] Last Admin: 08/22/21 11:42 Dose: Not Given Documented by: Ticagrelor (Ticagrelor 90 Mg Tab) 90 mg PO BID [facility] Last Admin: 08/22/21 08:36 Dose: 90 mg Documented by: Discontinued Medications Calcium Carbonate/Glycine (Calcium Carbonate 500 Mg Tab.Chew) 1,000 mg PO ONETIME ONE Stop: 08/21/21 04:02 Last Admin: 08/21/21 05:30 Dose: Not Given Documented by: Diphenhydramine HCl (Diphenhydramine 50 Mg/Ml Sdv) 50 mg IVPUSH ASDIRECTED PRN PRN Reason: hypersensitivity reaction Stop: 08/21/21 17:00 Epinephrine HCl (Epinephrine 1 Mg/Ml Sdv) 0.3 mg IM ASDIRECTED PRN PRN Reason: hypersensitivity reaction Stop: 08/21/21 17:00 Famotidine (Famotidine 20 Mg/2 Ml Sdv) 20 mg IVPUSH ASDIRECTED PRN PRN Reason: hypersensitivity reaction Stop: 08/21/21 17:00 Gadoteridol (Gadoteridol 279.3 Mg/Ml 15 Ml Sdv) 15 ml IV .A DIRECTED [facility] Stop: 08/21/21 16:01 Last Admin: 08/21/21 16:47 Dose: 15 ml Documented by: Sodium Chloride (Normal Saline) 100 mls @ 3.5 mls/sec IV ASDIRECTED [facility] Last Admin: 08/20/21 22:58 Dose: 4 mls/sec Documented by: Sodium Chloride (Normal Saline) 1,000 mls @ 100 mls/hr IV ASDIRECTED [facility] Last Admin: 08/21/21 00:36 Dose: 100 mls/hr Documented by: Bamlanivimab 700 mg/Etesevimab 1,400 mg/ Sodium Chloride 160 mls @ 310 mls/hr IV ONETIME ONE Stop: 08/21/21 16:30 Last Admin: 08/21/21 17:19 Dose: 310 mls/hr Documented by: Iopamidol (Iopamidol 755 Mg/Ml 100 Ml Bottle) 100 ml IV . DIRECTED [facility] Last Admin: 08/20/21 22:59 Dose: 100 ml Documented by: Methylprednisolone Sodium Succinate (Methylprednisolone Sodium Succinate 125 Mg/2 Ml Sdv) 125 mg IVPUSH ASDIRECTED PRN PRN Reason: hypersensitivity reaction Stop: 08/21/21 17:00 Pantoprazole Sodium (Pantoprazole 40 Mg Vial) 40 mg IV BEDTIME [facility] Last Admin: 08/21/21 00:32 Dose: 40 mg Documented by: Potassium Chloride (Potassium Chloride 20 Meq Tab.Er) 40 meq PO ONETIME ONE Stop: 08/21/21 09:31 Last Admin: 08/21/21 11:57 Dose: 40 meq Documented by: Potassium Chloride (Potassium Chloride 20 Meq Tab.Er) 40 meq PO ONETIME ONE Stop: 08/21/21 17:01 Last Admin: 08/21/21 17:14 Dose: 40 meq Documented by: Sodium Chloride (Sodium Chloride 0.9% 10 Ml Syringe) 10 ml FLUSH ONETIME ONE Stop: 08/20/21 20:40 Last Admin: 08/20/21 22:58 Dose: 10 ml Documented by: Sodium Chloride (Sodium Chloride 0.9% 10 Ml Syringe) 30 ml FLUSH ONETIME ONE Stop: 08/21/21 16:31 Last Admin: 08/21/21 17:27 Dose: 30 ml Documented by: - Exam Quality Assessment: DVT Prophylaxis General: Alert, Oriented, Cooperative, Mild Distress Lungs: Clear to Auscultation, Normal Respiratory Effort Cardiovascular: Regular Rate, Regular Rhythm, No Murmurs GI/Abdominal Exam: Soft, Non-Tender, No Organomegaly, No Distention Extremities: Non-Tender, No Pedal Edema - Patient Data Lab Results Last 24 hrs: Laboratory Results - last 24 hr 08/21/21 08/22/21 Range/Units 16:38 05:30 Potassium 4.3 (3.6-5.2) mmol/L SARS CoV-2 RNA Rapid WHIT Positive H Result Diagrams: 08/21/21 05:11 08/22/21 05:30 Sepsis Event Note - Evaluation Sepsis Screening Result: No Definite Risk - Focused Exam Vital Signs: Vital Signs Temp Pulse Pulse Resp BP BP Pulse Ox 08/22/21 11:54 97.7 F 82 18 128/48 L 96 08/22/21 08:35 77 149/63 H 08/22/21 08:32 97.7 F 77 18 149/63 H 97 08/22/21 04:00 97.7 F 80 18 137/48 L 96 - Problem List Review Problem List Initiated/Reviewed/Updated: Yes - My Orders Last 24 Hours: My Active Orders 08/21/21 14:03 Convert IV to Saline Lock [OM.PC] Routine 08/21/21 14:30 Discontinue Telemetry Monitoring [Cardiac Monitoring Discontinue] [RC] Click to Edit Aspirin 81 mg PO DAILY - Plan Plan:: ASSESSMENT AND PLAN CVA-symptoms of diplopia. MRI/MRA did show evidence of three small subacute infarcts as well as a moderate size older infarct. Echocardiogram obtained this morning, results are pending -Saline lock -antiplatelet therapy- Brilinta po bid and aspirin daily -statins Congestive Heart failure - denies any chest pain, shortness of breath or edema -home medication PO Laxis 40 mg. daily -Supplement oxygen as needed -continue outpatient medications COVID-19 positive screening- without hypoxia, not vaccinated. Tested positive on August 20, 2021. She completed monoclonal antibody therapy yesterday. Remains asymptomatic concerning her Covid infection -Supplement oxygen as needed -Isolation precautions Maintenance issues -Orders home meds: chronic medication -Nutrition: soft diet due to recent dental surgery-all teeth removed for dentures -Bunn catheter - not indicated -DVT - Lovenox 40 mg po bid CODE STATUS: FULL Admission status: Admit to Med-Surg Covid Precautions Admission justification. This patient will be admitted for inpatient services and is medically appropriate meeting medical necessity for inpatient admission as outlined in my documentation. I reasonably expect the patient will require inpatient services that span. Time over 2 midnights. I reasonably expect this patient to be discharged or transferred within 96 hours after admission to the critical access hospital. Disposition: discharge back to home with Son. Primary care provider: [facility] Hospitalist: Dr. Lux
[2021-08-22] MEDS: Pantoprazole 40 MG Tab.CR PO SCH (20:48)
[2021-08-22] MEDS: Melatonin 3 MG Tab PO SCH (20:48)
[2021-08-23] MEDS: Aspirin 81 MG Tab.Chew PO SCH (08:02)
[2021-08-23] MEDS: Carvedilol 3.125 MG Tab PO SCH (08:02)
[2021-08-23] MEDS: Ticagrelor 90 MG Tab PO SCH (08:03)
[2021-08-23] MEDS: Rosuvastatin 10 MG Tab PO SCH (08:03)
[2021-08-23] MEDS: Furosemide 40 MG Tab PO SCH (08:03)
[2021-08-23] MEDS: Enoxaparin 40 MG/0.4 ML Syringe SUBCUT SCH (08:03)
--- NOTE | 2021-08-23 12:01 | PCM.DCSUM1 ---
Discharge Summary - Hospital Course Brief History: Ms. Gamez is an 81-year-old woman who was admitted through the emergency department with acute onset of diplopia and unsteadiness, secondary to subacute CVA. - Discharge Data Discharge Date: 08/23/21 Discharge Disposition: Home, Self-Care 01 Condition: Fair - Referral to Home Health Primary Care Physician: PCP Unknown - Discharge Diagnosis/Problem(s) (1) Ocular palsy of left eye SNOMED Code(s): 66980954 ICD Code: H49.9 - UNSPECIFIED PARALYTIC STRABISMUS Status: Acute Current Visit: Yes (2) Diplopia SNOMED Code(s): 80392953 ICD Code: H53.2 - DIPLOPIA Status: Acute Current Visit: Yes (3) COVID-19 SNOMED Code(s): 509369591 ICD Code: U07.1 - COVID-19 Status: Acute Current Visit: Yes (4) CAD (coronary artery disease) SNOMED Code(s): 67677729 ICD Code: I25.10 - ATHSCL HEART DISEASE OF [place] CORONARY ARTERY W/O ANG PCTRS Status: Chronic Current Visit: No (5) History of coronary artery stent placement SNOMED Code(s): 605959307, 511025916 ICD Code: Z95.5 - PRESENCE OF CORONARY ANGIOPLASTY IMPLANT AND GRAFT Status: Chronic Current Visit: No - Patient Summary/Data Consults: Consultations 08/20/21 23:37 OT Evaluation and Treatment [CONS] Routine Please Evaluate and Treat. OT Reason for Consult: Discharge Planning This query below is only for informational purposes and is not editable. PT Evaluation and Treatment [CONS] Routine Please Evaluate and Treat. PT Reason for Consult: Balance This query below is only for informational purposes and is not editable. Hospital Course: Ms. Gamez is an 81-year-old female presenting to the ED for evaluation of acute onset of diplopia. Patient underwent a coronary angiogram at [facility] August, at 10:30 am. having a right radial artery approach and reports that she had brief episodes of diplopia throughout the day following the angiogram. Today she felt acutely dizzy and lowered herself to the floor and again started to experience diplopia. The patient's last known well time was [address] scan with and without contrast as well as CT angiogram of the head and neck were obtained in the emergency department and showed no evidence of acute CVA or significant cerebrovascular disease. Neurology was contacted and felt likely that she had experienced CVA secondary to the angiogram. They recommended antiplatelet therapy with follow-up MRI and echocardiogram. She was admitted to the hospital for further evaluation and management. She was placed on cardiac monitoring overnight and did receive frequent neuro checks after admission. The day after admission she did undergo an MRI and MRA of the head which showed small subacute strokes involving the medial left thalamus, rostral left midbrain, and superior medial right occipital lobe. She was noted to have a chronic old infarct of small to moderate size involving the inferior right occipital lobe. On the next day echocardiogram was obtained the results of which are unavailable at the time of discharge. She remained otherwise stable neurologically and did note some improvement in her diplopia. On admission she was tested for Covid and found to be positive. She remained essentially asymptomatic concerning for Covid and was given monoclonal antibody during her hospital stay. Was seen daily during hospitalization by physical therapy and Occupational Therapy. She will be discharged home under the care of family. Activity will be as tolerated and she will resume her usual diet. She is instructed to remain on self quarantine for an additional 7 days. Follow-up appointment will be scheduled with her primary care provider within 1 week. Neurology consult will be scheduled for follow-up of her recent CVAs. She will remain on aspirin and Plavix. 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 - Patient Instructions Diet: Usual Diet as Tolerated Activity: As Tolerated Other/Special Instructions: Please schedule neurology consult for evaluation of recent CVA. Please schedule appointment with ophthalmology concerning the patient's double vision. Please schedule follow-up appointment with primary care provider within 1 week. - Discharge Plan *PRESCRIPTION DRUG MONITORING PROGRAM REVIEWED*: Not Applicable *COPY OF PRESCRIPTION DRUG MONITORING REPORT IN PATIENT CHARANJIT: Not Applicable Prescriptions/Med Rec: Ticagrelor [Brilinta] 90 mg PO BID #60 tablet Home Medications: Home Meds Aspirin 81 mg PO DAILY 02/25/18 [History] Cholecalciferol (Vitamin D3) [Vitamin D3] 5,000 units PO DAILY 02/25/18 [History] Nitroglycerin [Nitrostat] 0.4 mg SL ASDIRECTED 02/25/18 [History] carvediloL [Coreg] 3.125 mg PO BIDMEALS 03/24/18 [History] Rosuvastatin [Crestor] 5 mg PO DAILY 03/01/21 [History] Furosemide 1 tab PO DAILY 08/20/21 [History] Ticagrelor [Brilinta] 90 mg PO BID #60 tablet 08/23/21 [Rx] Patient Handouts: Fall Prevention in the Home, Adult, [id number], COVID-19 Referrals: Noah Erickson MD [Physician] - 08/29/21 2:00 pm (Your appointment with Dr. Erickson will be a ZOOM Appointment. You will receive an email from [facility] with information on your Zoom Appointment) - Discharge Summary/Plan Comment DC Time >30 min.: No Total # of Minutes for Discharge Time: 25 - Patient Data Vitals - Most Recent: Last Vital Signs Temp 97.8 F 08/23/21 07:59 Pulse 71 08/23/21 08:02 Resp 18 08/23/21 07:59 BP 163/61 H 08/23/21 08:02 Pulse Ox 97 08/23/21 07:59 Weight - Most Recent: 164 lb I&O - Last 24 hours: Intake & Output 08/22/21 08/23/21 08/23/21 22:59 06:59 14:59 Intake Total 360 240 Balance 360 240 Med Orders - Current: Current Medications Acetaminophen (Acetaminophen 325 Mg Tab) 650 mg PO Q4H PRN PRN Reason: Fever Greater Than 101/PAIN Last Admin: 08/21/21 08:38 Dose: 650 mg Documented by: Aspirin (Aspirin 81 Mg Tab.Chew) 81 mg PO DAILY [facility] Last Admin: 08/23/21 08:02 Dose: 81 mg Documented by: Bisacodyl (Bisacodyl 5 Mg Tab) 5 mg PO DAILY PRN PRN Reason: Constipation Carvedilol (Carvedilol 3.125 Mg Tab) 3.125 mg PO BIDMEALS [facility] Last Admin: 08/23/21 08:02 Dose: 3.125 mg Documented by: Diphenhydramine HCl (Diphenhydramine 25 Mg Cap) 25 mg PO BEDTIME PRN PRN Reason: Insomnia Docusate Sodium (Docusate Sodium 100 Mg Cap) 100 mg PO BID PRN PRN Reason: Constipation Last Admin: 08/21/21 00:34 Dose: 100 mg Documented by: Enoxaparin Sodium (Enoxaparin 40 Mg/0.4 Ml Syringe) 40 mg SUBCUT DAILY [facility] Last Admin: 08/23/21 08:03 Dose: 40 mg Documented by: Furosemide (Furosemide 40 Mg Tab) 40 mg PO DAILY [facility] Last Admin: 08/23/21 08:03 Dose: 40 mg Documented by: Lorazepam (Lorazepam 0.5 Mg Tab) 0.5 mg PO ONETIME PRN PRN Reason: Pain Melatonin (Melatonin 3 Mg Tab) 6 mg PO BEDTIME [facility] Last Admin: 08/22/21 20:48 Dose: 6 mg Documented by: Morphine Sulfate (Morphine 2 Mg/Ml Syringe) 2 mg IVPUSH Q2H PRN PRN Reason: Pain (severe 7-10) Nitroglycerin (Nitroglycerin 0.4 Mg Tab.Sl) 0.4 mg SL ASDIRECTED [facility] Ondansetron HCl (Ondansetron 4 Mg Tab.Dis) 4 mg PO Q6H PRN PRN Reason: Nausea able to take PO Oxycodone HCl (Oxycodone 5 Mg Tab) 5 mg PO Q4H PRN PRN Reason: Pain (moderate 4-6) Last Admin: 08/21/21 00:33 Dose: 5 mg Documented by: Pantoprazole Sodium (Pantoprazole 40 Mg Tab.Cr) 40 mg PO BEDTIME [facility] Last Admin: 08/22/21 20:48 Dose: 40 mg Documented by: Rosuvastatin Calcium (Rosuvastatin 10 Mg Tab) 5 mg PO DAILY [facility] Last Admin: 08/23/21 08:03 Dose: 5 mg Documented by: Sodium Chloride (Sodium Chloride 0.9% 10 Ml Syringe) 10 ml FLUSH ASDIRECTED PRN PRN Reason: Keep Vein Open Last Admin: 08/20/21 20:31 Dose: 10 ml Documented by: Ticagrelor (Ticagrelor 90 Mg Tab) 90 mg PO BID [facility] Last Admin: 08/23/21 08:03 Dose: 90 mg Documented by: Discontinued Medications Calcium Carbonate/Glycine (Calcium Carbonate 500 Mg Tab.Chew) 1,000 mg PO ONETIME ONE Stop: 08/21/21 04:02 Last Admin: 08/21/21 05:30 Dose: Not Given Documented by: Diphenhydramine HCl (Diphenhydramine 50 Mg/Ml Sdv) 50 mg IVPUSH ASDIRECTED PRN PRN Reason: hypersensitivity reaction Stop: 08/21/21 17:00 Epinephrine HCl (Epinephrine 1 Mg/Ml Sdv) 0.3 mg IM ASDIRECTED PRN PRN Reason: hypersensitivity reaction Stop: 08/21/21 17:00 Famotidine (Famotidine 20 Mg/2 Ml Sdv) 20 mg IVPUSH ASDIRECTED PRN PRN Reason: hypersensitivity reaction Stop: 08/21/21 17:00 Gadoteridol (Gadoteridol 279.3 Mg/Ml 15 Ml Sdv) 15 ml IV .A DIRECTED [facility] Stop: 08/21/21 16:01 Last Admin: 08/21/21 16:47 Dose: 15 ml Documented by: Sodium Chloride (Normal Saline) 100 mls @ 3.5 mls/sec IV ASDIRECTED [facility] Last Admin: 08/20/21 22:58 Dose: 4 mls/sec Documented by: Sodium Chloride (Normal Saline) 1,000 mls @ 100 mls/hr IV ASDIRECTED [facility] Last Admin: 08/21/21 00:36 Dose: 100 mls/hr Documented by: Bamlanivimab 700 mg/Etesevimab 1,400 mg/ Sodium Chloride 160 mls @ 310 mls/hr IV ONETIME ONE Stop: 08/21/21 16:30 Last Admin: 08/21/21 17:19 Dose: 310 mls/hr Documented by: Iopamidol (Iopamidol 755 Mg/Ml 100 Ml Bottle) 100 ml IV . DIRECTED [facility] Last Admin: 08/20/21 22:59 Dose: 100 ml Documented by: Methylprednisolone Sodium Succinate (Methylprednisolone Sodium Succinate 125 Mg/2 Ml Sdv) 125 mg IVPUSH ASDIRECTED PRN PRN Reason: hypersensitivity reaction Stop: 08/21/21 17:00 Pantoprazole Sodium (Pantoprazole 40 Mg Vial) 40 mg IV BEDTIME [facility] Last Admin: 08/21/21 00:32 Dose: 40 mg Documented by: Potassium Chloride (Potassium Chloride 20 Meq Tab.Er) 40 meq PO ONETIME ONE Stop: 08/21/21 09:31 Last Admin: 08/21/21 11:57 Dose: 40 meq Documented by: Potassium Chloride (Potassium Chloride 20 Meq Tab.Er) 40 meq PO ONETIME ONE Stop: 08/21/21 17:01 Last Admin: 08/21/21 17:14 Dose: 40 meq Documented by: Sodium Chloride (Sodium Chloride 0.9% 10 Ml Syringe) 10 ml FLUSH ONETIME ONE Stop: 08/20/21 20:40 Last Admin: 08/20/21 22:58 Dose: 10 ml Documented by: Sodium Chloride (Sodium Chloride 0.9% 10 Ml Syringe) 30 ml FLUSH ONETIME ONE Stop: 08/21/21 16:31 Last Admin: 08/21/21 17:27 Dose: 30 ml Documented by: Spironolactone (Spironolactone 25 Mg Tab) 25 mg PO DAILY [facility] Last Admin: 08/22/21 11:42 Dose: Not Given Documented by: - Exam Quality Assessment: Reports: DVT Prophylaxis General: Reports: Alert, Oriented, Cooperative, Mild Distress Lungs: Reports: Clear to Auscultation, Normal Respiratory Effort Cardiovascular: Reports: Regular Rate, Regular Rhythm, No Murmurs GI/Abdominal Exam: Soft, Non-Tender, No Organomegaly Neurological: Reports: Normal Tone, Strength Equal Bilateral, Sensation Intact, Other (Decreased extraocular movements left eye with mild fixed pupillary dilatation)
[2021-08-23 12:12] VITALS: BP 110/50; PULSE 69
== END 2021-08-23 14:35 | disposition home or self-care (01) | DRG 64 ==
LOC: JP.ED 19:43 → JP.2SS 22:42
PROVIDERS: ADMIT Hospitalist; ATTEND Hospitalist
PROC: XW033F6 Introduction of Bamlanivimab Monoclonal Antibody into Peripheral Vein, Percutaneous Approach, New Technology Group 6 (ICD-10-PCS; principal; 2021-08-20)
PROC: 8E0ZXY6 Isolation (ICD-10-PCS; principal; 2021-08-20)
DX: I63.50 Cerebral infarction due to unspecified occlusion or stenosis of unspecified cerebral artery (principal); H49.02 Third [oculomotor] nerve palsy, left eye; U07.1 COVID-19; H54.7 Unspecified visual loss; H49.9 Unspecified paralytic strabismus; I25.10 Atherosclerotic heart disease of native coronary artery without angina pectoris; H53.2 Diplopia; E78.00 Pure hypercholesterolemia, unspecified; I50.9 Heart failure, unspecified; I11.0 Hypertensive heart disease with heart failure; K21.9 Gastro-esophageal reflux disease without esophagitis; R29.701 NIHSS score 1; Z86.19 Personal history of other infectious and parasitic diseases; Z79.82 Long term (current) use of aspirin; Z95.5 Presence of coronary angioplasty implant and graft; Z79.899 Other long term (current) drug therapy; Z23 Encounter for immunization; I25.2 Old myocardial infarction; Z90.89 Acquired absence of other organs; Z90.49 Acquired absence of other specified parts of digestive tract; Z90.710 Acquired absence of both cervix and uterus; Z87.891 Personal history of nicotine dependence
CPT/HCPCS: 36415; 70450; 70496; 70498; 80053; 82728; 83605; 83615; 84145; 84484; 85025; 85379; 85610; 85730; 86140; 93005; 99285; U0002; 70544; 70553; 80048; 84132; 93306; 94762; 97110-GP; 97163-GP; 97165-GO; 97530-GP; 99223; 99232; 99238; A9270-GY; A9579; C9113; J1650; J7030; M0245; Q0245; Q9967

== ENCOUNTER 2021-09-30 09:48 | Inpatient (IN) | payer MEDICARE, MEDICAID ==
--- NOTE | 2021-09-30 10:35 | EDM.PDOC ---
ED HPI GENERAL MEDICAL PROBLEM - General Chief Complaint: General Stated Complaint: MEDICAL VIA [facility] Time Seen by Provider: 09/30/21 10:33 Source of Information: Reports: Patient History Limitations: Reports: No Limitations - History of Present Illness INITIAL COMMENTS - FREE TEXT/NARRATIVE: pt had a stroke involving occipital area on the rt about 4-5 weeks ago. She probably did this when she was having a angiogram on her coronary arteries. Onset: Gradual Duration: Day(s): Location: Reports: Head, Generalized Associated Symptoms: Reports: Headaches, Loss of Appetite, Weakness, Other ( visual blurring. ) Headache Pain Score (Numeric/FACES): 5 - Related Data Allergies Allergy/AdvReac Type Severity Reaction Status Date / Time No Known Allergies Allergy Verified 08/20/21 20:36 Home Meds: Home Meds Aspirin 81 mg PO DAILY 02/25/18 [History] Cholecalciferol (Vitamin D3) [Vitamin D3] 5,000 units PO DAILY 02/25/18 [History] Nitroglycerin [Nitrostat] 0.4 mg SL ASDIRECTED 02/25/18 [History] carvediloL [Coreg] 3.125 mg PO BIDMEALS 03/24/18 [History] Rosuvastatin [Crestor] 5 mg PO DAILY 03/01/21 [History] Furosemide 20 tab PO DAILY 08/20/21 [History] Ticagrelor [Brilinta] 90 mg PO BID #60 tablet 08/23/21 [Rx] Spironolactone [Aldactone] 25 mg PO DAILY 09/30/21 [History] lisinopriL [Lisinopril] 5 mg PO DAILY 09/30/21 [History] ondansetron HCL [Zofran] 4 mg PO Q8H PRN 09/30/21 [History] Past Medical History HEENT History: Reports: Cataract, Impaired Vision Cardiovascular History: Reports: CAD, Heart Failure, High Cholesterol, Hypertension, [place], Other (See Below) Other Cardiovascular History: angiogram 08/20/2021 Gastrointestinal History: Reports: GERD Genitourinary History: Reports: None 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: Musculoskeletal History: Reports: Fracture - Infectious Disease History Infectious Disease History: Reports: Chicken Pox, Measles, Mumps, Scarlet Fever - Past Surgical History Head Surgeries/Procedures: Reports: None HEENT Surgical History: Reports: Cataract Surgery, Tonsillectomy Cardiovascular Surgical History: Reports: Carotid Stents Other Cardiovascular Surgeries/Procedures: Cardiac Stent x 3 placed in 2004 in [place], [place] GI Surgical History: Reports: Appendectomy, Cholecystectomy, Colonoscopy, EGD Female Surgical History: Reports: Hysterectomy Other Female Surgeries/Procedures: Bilateral Salpingo-oophrectomy Musculoskeletal Surgical History: Reports: None Dermatological Surgical History: Reports: None Social & Family History - Family History Family Medical History: No Pertinent Family History - Tobacco Use Tobacco Use Status *Q: Never Tobacco User - Caffeine Use Caffeine Use: Reports: None Other Caffeine Use: 1 cup per day - Living Situation & Occupation Living situation: Reports: Occupation: Retired (lives in [place], [place]. with Son.) ED ROS GENERAL - Review of Systems Review Of Systems: See Below Constitutional: Reports: Weakness, Decreased Appetite, Weight Loss HEENT: Reports: No Symptoms Respiratory: Reports: No Symptoms Cardiovascular: Reports: Other (history of a ejection fraction of 25-30. ) Endocrine: Reports: No Symptoms GI/Abdominal: Reports: No Symptoms, Other (pt does have heart burn. ) : Reports: No Symptoms Musculoskeletal: Reports: No Symptoms Skin: Reports: No Symptoms Neurological: Reports: Headache, Other ( blurring. pt is having difficulty today getting in and out of bed. ) Psychiatric: Reports: Anxiety ED EXAM, GENERAL - Physical Exam Exam: See Below Free Text/Narrative:: pt arrived with poor oral intake, weight loss, weakness-- having difficulty getting in and out of bed, persistent headaches, increased blurred vision. She was recently placed on lisinopril 2.5 mg and her bp is very low. Exam Limited By: No Limitations General Appearance: Alert, Anxious, Mild Distress, Other (pupils are equal and reactive. ) Ears: Normal TMs Nose: Normal Inspection Throat/Mouth: Normal Inspection Head: Atraumatic Neck: Normal Inspection Respiratory/Chest: No Respiratory Distress Cardiovascular: Regular Rate, Rhythm, Other ( no history of atrial fib. She has a low ejection fraction) GI/Abdominal: Soft, Non-Tender, Other (pt is having diarrhea. ) (Female) Exam: Deferred Rectal (Female) Exam: Deferred Back Exam: Normal Inspection Extremities: Normal Inspection Neurological: Alert, Oriented, Normal Cognition Psychiatric: Anxious Course - Vital Signs Last Recorded V/S: Last Vital Signs Temp 35.9 C L 12/20/21 09:54 Pulse 96 09/30/21 09:54 Resp 16 09/30/21 09:54 BP 105/51 L 09/30/21 09:54 Pulse Ox 97 09/30/21 09:54 - Orders/Labs/Meds Orders: Active Orders 24 hr Category Date Time Status Cardiac Monitoring [RC] .As Directed Care 09/30/21 11:21 Active INR,PT,PROTHROMBIN TIME [COAG] Stat Lab 09/30/21 14:53 Ordered PTT,PARTIAL THROMBOPLSTIN TIME [COAG] Stat Lab 09/30/21 14:53 Ordered UA W/MICROSCOPIC [URIN] Urgent Lab 09/30/21 10:55 Ordered Sodium Chloride 0.9% [Normal Saline] 1,000 ml Med 09/30/21 11:30 Active IV ASDIRECTED Sodium Chloride 0.9% [Normal Saline] 1,000 ml Med 09/30/21 12:15 Active IV ASDIRECTED Medication Orders Sodium Chloride (Normal Saline) 1,000 mls @ 999 mls/hr IV ASDIRECTED MARIO ALBERTO Last Admin: 09/30/21 13:00 Dose: 999 mls/hr Documented by: MALDONADO Sodium Chloride (Normal Saline) 1,000 mls @ 500 mls/hr IV ASDIRECTED MARIO ALBERTO Last Admin: 09/30/21 14:12 Dose: 500 mls/hr Documented by: MALDONADO Labs: Laboratory Tests 09/30/21 09/30/21 09/30/21 Range/Units 11:15 11:15 11:15 WBC 9.4 (4.5-11.0) K/uL RBC 4.42 (3.30-5.50) M/uL Hgb 13.4 (12.0-15.0) g/dL Hct 40.3 (36.0-48.0) % MCV 91 (80-98) fL MCH 30 (27-31) pg MCHC 33 (32-36) % Plt Count 290 (150-400) K/uL Neut % (Auto) 72.8 H (36-66) % Lymph % (Auto) 14.6 L (24-44) % Bland % (Auto) 8.7 H (2-6) % Eos % (Auto) 3.6 (2-4) % Baso % (Auto) 0.3 (0-1) % Sodium 142 (140-148) mmol/L Potassium 5.1 (3.6-5.2) mmol/L Chloride 101 (100-108) mmol/L Carbon Dioxide 24 (21-32) mmol/L Anion Gap 17.5 H (5.0-14.0) mmol/L BUN 39 H D (7-18) mg/dL Creatinine 3.9 H* D (0.6-1.0) mg/dL Est Cr Clr Drug Dosing 9.93 mL/min Estimated GFR (MDRD) 11 L (>60) Glucose 99 (74-106) mg/dL Calcium 9.5 D (8.5-10.1) mg/dL Total Bilirubin 0.5 D (0.2-1.0) mg/dL AST 16 (15-37) U/L ALT 17 (12-78) U/L Alkaline Phosphatase 72 (46-116) U/L Troponin I High Sens 46.2 (<=60.3) pg/mL Total Protein 7.6 (6.4-8.2) g/dL Albumin 3.5 (3.4-5.0) g/dL Globulin 4.1 H (2.3-3.5) g/dL Albumin/Globulin Ratio 0.9 L (1.2-2.2) Meds: Medications Generic Name Dose Route Start Last Admin Trade Name Freq PRN Reason Stop Dose Admin Sodium Chloride 1,000 mls @ 999 mls/hr 09/30/21 11:30 09/30/21 13:00 Normal Saline IV 999 mls/hr ASDIRECTED MARIO ALBERTO Administration Sodium Chloride 1,000 mls @ 500 mls/hr 09/30/21 12:15 09/30/21 14:12 Normal Saline IV 500 mls/hr ASDIRECTED MARIO ALBERTO Administration Discontinued Medications Generic Name Dose Route Start Last Admin Trade Name Freq PRN Reason Stop Dose Admin Calcium Carbonate/Glycine 1,000 mg 09/30/21 12:48 09/30/21 13:15 Calcium Carbonate 500 Mg Tab.Chew PO 09/30/21 12:49 1,000 mg ONETIME ONE Administration - Re-Assessments/Exams Free Text/Narrative Re-Assessment/Exam: 09/30/21 15:12 pt had a repeat MRI of the head which shows that she is showering herself with small clots. Dr Brown was consulted and the MRI was sent to . He feels that she is throwing clots because of her low ejection fraction Pt should be placed on coumadin therapy. She has a creatnine of 3.9. She previously had a cratnine of 1. Departure - Departure Time of Disposition: 15:15 Disposition: Admitted As Inpatient 67 Condition: Fair Clinical Impression: H/O recurrent transient ischemic attacks, Renal insufficiency, Dehydration - Discharge Information Referrals: PCP,None [Primary Care Provider] - Forms: ED Department Discharge Care Plan Goals: admit to Dr ragsdale Sepsis Event Note (ED) - Evaluation Sepsis Screening Result: No Definite Risk - Focused Exam Vital Signs: Vital Signs Temp Pulse Resp BP Pulse Ox 09/30/21 09:54 35.9 C L 96 16 105/51 L 97 - My Orders Last 24 Hours: My Active Orders 09/30/21 10:55 UA W/MICROSCOPIC [URIN] Urgent 09/30/21 11:21 Cardiac Monitoring [RC] .As Directed 09/30/21 11:30 Sodium Chloride 0.9% [Normal Saline] 1,000 ml IV ASDIRECTED 09/30/21 12:15 Sodium Chloride 0.9% [Normal Saline] 1,000 ml IV ASDIRECTED 09/30/21 14:53 INR,PT,PROTHROMBIN TIME [COAG] Stat PTT,PARTIAL THROMBOPLSTIN TIME [COAG] Stat - Assessment/Plan Last 24 Hours: My Active Orders 09/30/21 10:55 UA W/MICROSCOPIC [URIN] Urgent 09/30/21 11:21 Cardiac Monitoring [RC] .As Directed 09/30/21 11:30 Sodium Chloride 0.9% [Normal Saline] 1,000 ml IV ASDIRECTED 09/30/21 12:15 Sodium Chloride 0.9% [Normal Saline] 1,000 ml IV ASDIRECTED 09/30/21 14:53 INR,PT,PROTHROMBIN TIME [COAG] Stat PTT,PARTIAL THROMBOPLSTIN TIME [COAG] Stat
[2021-09-30] MEDS ORDERED: Sodium Chloride 0.9% 1,000 ML IV SCH ×2 (11:30→12:15)
[2021-09-30] MEDS ORDERED: Calcium Carbonate 500 MG Tab.Chew PO ONE (12:48)
--- NOTE | 2021-09-30 12:52 | MR ---
Brain wo Cont CLINICAL HISTORY: Previous CVA COMPARISON: 08/21/2021 TECHNIQUE: Multiple axial, sagittal, and coronal images were obtained on a 1.5 T magnet with multiweighted sequences, FLAIR, and diffusion imaging without contrast. FINDINGS: Diffusion weighted images show a new focus of restricted diffusion in the left occipital lobe which shows increased signal on FLAIR and T2. There is no evidence suggest hemorrhage. There is a previously described area in the right occipital lobe. Signal has reduced on diffusion images. There is persistent hyperintensity on T2 and FLAIR. Focus of restricted diffusion in the left thalamus is not obvious on today's exam. There are scattered foci of chronic ischemic microvascular change which is also seen on prior study IMPRESSION: New focus of acute ischemic infarct in the left occipital lobe Previous focus of abnormal signal from acute ischemic infarct in the right occipital lobe has diminished. Small foci of restricted diffusion in the medial left thalamus and left midbrain are not visualized on current study
--- NOTE | 2021-09-30 12:55 | CR ---
CHEST: Portable 09/30/2021 and 12:32 PM CLINICAL HISTORY:SOB COMPARISON:February 2021 FINDINGS: Lungs are hyperaerated. The heart size, pulmonary vascularity and hilar structures are normal. No infiltrate effusion or pneumothorax is seen. IMPRESSION: No acute cardiopulmonary process Mild hyperaeration .
--- NOTE | 2021-09-30 15:11 | PCM.HP.2 ---
H&P History of Present Illness - General Date of Service: 09/30/21 Admit Problem/Dx: Admission Diagnosis/Problem Admission Diagnosis/Problem CVA, Cerebrovascular accident Source of Information: Patient, Family, Old Records, Provider, RN Notes Reviewed History Limitations: Reports: No Limitations - History of Present Illness Initial Comments - Free Text/Narative: Ms. Gamez is an 81-year-old woman who was admitted through the emergency department with a recent history of progressive weakness, anorexia, nausea, and diarrhea. She also has noted new difficulty with her vision. She did experience a documented CVA associated with angiogram performed a few months ago. On evaluation in the emergency department today MRI does document to areas of new infarct in the occipital lobe as well as midbrain. 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 Recommendation has been to proceed with anticoagulation with warfarin. She has a known history of coronary artery disease as well as congestive heart failure with an estimated ejection fraction of 30%. Headache Pain Score (Numeric/FACES): 5 - Related Data Allergies/Adverse Reactions: Allergies Allergy/AdvReac Type Severity Reaction Status Date / Time No Known Allergies Allergy Verified 08/20/21 20:36 Home Medications: Home Meds Aspirin 81 mg PO DAILY 02/25/18 [History] Cholecalciferol (Vitamin D3) [Vitamin D3] 5,000 units PO DAILY 02/25/18 [History] Nitroglycerin [Nitrostat] 0.4 mg SL ASDIRECTED 02/25/18 [History] carvediloL [Coreg] 3.125 mg PO BIDMEALS 03/24/18 [History] Rosuvastatin [Crestor] 5 mg PO DAILY 03/01/21 [History] Furosemide 20 tab PO DAILY 08/20/21 [History] Ticagrelor [Brilinta] 90 mg PO BID #60 tablet 08/23/21 [Rx] Spironolactone [Aldactone] 25 mg PO DAILY 09/30/21 [History] lisinopriL [Lisinopril] 5 mg PO DAILY 09/30/21 [History] ondansetron HCL [Zofran] 4 mg PO Q8H PRN 09/30/21 [History] Past Medical History HEENT History: Reports: Cataract, Impaired Vision Cardiovascular History: Reports: CAD, Heart Failure, High Cholesterol, Hypertension, [place], Other (See Below) Other Cardiovascular History: angiogram 08/20/2021 Gastrointestinal History: Reports: GERD Genitourinary History: Reports: None 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: Musculoskeletal History: Reports: Fracture - Infectious Disease History Infectious Disease History: Reports: Chicken Pox, Measles, Mumps, Scarlet Fever - Past Surgical History Head Surgeries/Procedures: Reports: None HEENT Surgical History: Reports: Cataract Surgery, Tonsillectomy Cardiovascular Surgical History: Reports: Carotid Stents Other Cardiovascular Surgeries/Procedures: Cardiac Stent x 3 placed in 2004 in [place], [place] GI Surgical History: Reports: Appendectomy, Cholecystectomy, Colonoscopy, EGD Female Surgical History: Reports: Hysterectomy Other Female Surgeries/Procedures: Bilateral Salpingo-oophrectomy Musculoskeletal Surgical History: Reports: None Dermatological Surgical History: Reports: None Social & Family History - Family History Family Medical History: No Pertinent Family History - Tobacco Use Tobacco Use Status *Q: Never Tobacco User - Caffeine Use Caffeine Use: Reports: None Other Caffeine Use: 1 cup per day - Living Situation & Occupation Living situation: Reports: Occupation: Retired (lives in [place], [place]. with Son.) H&P Review of Systems - Review of Systems: Review Of Systems: See Below General: Reports: Malaise, Weakness, Fatigue, Decreased Appetite, Weight Loss HEENT: Reports: No Symptoms Pulmonary: Reports: No Symptoms Cardiovascular: Reports: No Symptoms Gastrointestinal: Reports: Anorexia, Diarrhea, Nausea, Vomiting. Denies: Ab dominal Pain, Difficulty Swallowing, Distension, Hematemesis, Hematochezia, Melena Genitourinary: Reports: No Symptoms Musculoskeletal: Reports: No Symptoms Skin: Reports: No Symptoms Psychiatric: Reports: No Symptoms Neurological: Reports: No Symptoms Hematologic/Lymphatic: Reports: No Symptoms Immunologic: Reports: No Symptoms Exam - Exam Exam: See Below - Vital Signs Vital Signs: Last Vital Signs Temp 96.6 F L 09/30/21 09:54 Pulse 96 09/30/21 09:54 Resp 16 09/30/21 09:54 BP 105/51 L 09/30/21 09:54 Pulse Ox 97 09/30/21 09:54 Weight: 144 lb - Exam Quality Assessment: DVT Prophylaxis General: Alert, Oriented, Cooperative, Mild Distress HEENT: Conjunctiva Clear, Hearing Intact, Normal Nasal Septum, Posterior Pharynx Clear, Pupils Equal. No: Mucosa Moist & [place] Neck: Supple, Trachea Midline, +2 Carotid Pulse wo Bruit Lungs: Clear to Auscultation, Normal Respiratory Effort, Decreased Breath Sounds Cardiovascular: Regular Rate, Regular Rhythm, Normal S1, Normal S2. No: Systolic Murmur, Diastolic Murmur GI/Abdominal Exam: Soft, Non-Tender, No Organomegaly, No Distention Back Exam: Normal Inspection, Full Range of Motion Extremities: Non-Tender, No Pedal Edema Skin: Warm, Dry, Intact Neurological: Cranial Nerves Intact, Strength Equal Bilateral, Normal Speech, Normal Tone, Sensation Intact. No: Focal Deficit Neuro Extensive - Mental Status: Alert, Oriented x3, Normal Mood/Affect, Normal Cognition, Memory Intact - Patient Data Lab Results Last 24 hrs: Laboratory Results - last 24 hr 09/30/21 09/30/21 09/30/21 Range/Units 11:15 11:15 11:15 WBC 9.4 (4.5-11.0) K/uL RBC 4.42 (3.30-5.50) M/uL Hgb 13.4 (12.0-15.0) g/dL Hct 40.3 (36.0-48.0) % MCV 91 (80-98) fL MCH 30 (27-31) pg MCHC 33 (32-36) % Plt Count 290 (150-400) K/uL Neut % (Auto) 72.8 H (36-66) % Lymph % (Auto) 14.6 L (24-44) % [place] % (Auto) 8.7 H (2-6) % Eos % (Auto) 3.6 (2-4) % Baso % (Auto) 0.3 (0-1) % Sodium 142 (140-148) mmol/L Potassium 5.1 (3.6-5.2) mmol/L Chloride 101 (100-108) mmol/L Carbon Dioxide 24 (21-32) mmol/L Anion Gap 17.5 H (5.0-14.0) mmol/L BUN 39 H D (7-18) mg/dL Creatinine 3.9 H* D (0.6-1.0) mg/dL Est Cr Clr Drug Dosing 9.93 mL/min Estimated GFR (MDRD) 11 L (>60) Glucose 99 (74-106) mg/dL Calcium 9.5 D (8.5-10.1) mg/dL Total Bilirubin 0.5 D (0.2-1.0) mg/dL AST 16 (15-37) U/L ALT 17 (12-78) U/L Alkaline Phosphatase 72 (46-116) U/L Troponin I High Sens 46.2 (<=60.3) pg/mL Total Protein 7.6 (6.4-8.2) g/dL Albumin 3.5 (3.4-5.0) g/dL Globulin 4.1 H (2.3-3.5) g/dL Albumin/Globulin Ratio 0.9 L (1.2-2.2) Result Diagrams: 09/30/21 11:15 09/30/21 11:15 Sepsis Event Note - Evaluation Sepsis Screening Result: No Definite Risk - Focused Exam Vital Signs: Vital Signs Temp Pulse Resp BP Pulse Ox 09/30/21 09:54 96.6 F L 96 16 105/51 L 97 *Q Meaningful Use (ADM) - VTE Risk Assess *Q Each Risk Factor Represents 1 Point: Congestive heart failure (CHF) Total Score 1 Point Risk Factors: 1 Each Risk Factor Represents 2 Points: None Total Score 2 Point Risk Factors: 0 Each Risk Factor Represents 3 Points: Age 75 Years or Greater Total Score 3 Point Risk Factors: 3 Each Risk Factor Represents 5 Points: Stroke, Less than 1 Month Total Score 5 Point Risk Factors: 5 Venous Thromboembolism Risk Factor Score *Q: 9 Problem List Initiated/Reviewed/Updated: Yes Orders Last 24hrs: Active Orders 24 hr Category Date Time Status Patient Status Manage Transfer [TRANSFER] Routine ADT 09/30/21 15:01 Ordered Cardiac Monitoring [RC] .As Directed Care 09/30/21 11:21 Active INR,PT,PROTHROMBIN TIME [COAG] Stat Lab 09/30/21 14:53 Ordered PTT,PARTIAL THROMBOPLSTIN TIME [COAG] Stat Lab 09/30/21 14:53 Ordered UA W/MICROSCOPIC [URIN] Urgent Lab 09/30/21 10:55 Ordered Sodium Chloride 0.9% [Normal Saline] 1,000 ml Med 09/30/21 11:30 Active IV ASDIRECTED Sodium Chloride 0.9% [Normal Saline] 1,000 ml Med 09/30/21 12:15 Active IV ASDIRECTED Resuscitation Status Routine Resus Stat 09/30/21 15:04 Ordered Medication Orders Sodium Chloride (Normal Saline) 1,000 mls @ 999 mls/hr IV ASDIRECTED REPLACED BY [facility] Last Admin: 09/30/21 13:00 Dose: 999 mls/hr Documented by: MALDONADO Sodium Chloride (Normal Saline) 1,000 mls @ 500 mls/hr IV ASDIRECTED REPLACED BY [facility] Last Admin: 09/30/21 14:12 Dose: 500 mls/hr Documented by: MALDONADO Assessment/Plan Comment:: ASSESSMENT AND PLAN 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 MRI has been reviewed by neurology and recommendation is to proceed with anticoagulation. She is already on antiplatelet therapy with Brilinta and aspirin. I reviewed this with the patient and family who are present and explained the increased risk of bleeding associated with this plan. Patient understands the risk and is willing to proceed with therapy. -Enoxaparin 1 mg/kg subcu every 12 hours -Start warfarin 5 mg today, reassess in a.m. -Daily INR NAUSEA VOMITING AND DIARRHEA-associated with significant weight loss over the past several weeks -Specific etiology not apparent, monitored during hospitalization -Consider further evaluation depending on symptoms over the next few days ACUTE KIDNEY INJURY-creatinine elevated from baseline, likely secondary to dehydration with poor oral intake and diarrhea -Cautious IV fluids overnight -Closely monitor urine output and renal function CONGESTIVE HEART FAILURE-no evidence of acute exacerbation at this time -Hold diuretic therapy and PETRA inhibitor, reassess in a.m. -Continue other medications GENERALIZED WEAKNESS -Physical therapy daily MAINTENANCE ISSUES -DVT prophylaxis; therapy with Lovenox and Coumadin should provide adequate DVT prophylaxis -GI prophylaxis; continue outpatient PPI therapy -Bunn catheter; not indicated -Nutrition; low-sodium diet -Nicotine dependence; not required CODE STATUS-FULL CODE ADMISSION STATUS-patient will be admitted to inpatient status, expect at least a 2 night hospital stay for evaluation and management of problems as outlined above. At the time of this admission I do not reasonably expected evaluation and management of this problem will require more than a 96 hour hospital stay. DISPOSITION-anticipate discharge to home after the hospital stay. - Mortality Measure Prognosis:: Good
[2021-09-30] MEDS ORDERED: Ondansetron 4 MG/2 ML SDV IV PRN (16:37)
[2021-09-30] MEDS ORDERED: Polyethylene Glycol 3350 Powder 17 GM Packet PO PRN (16:37)
[2021-09-30] MEDS ORDERED: Enoxaparin 80 MG/0.8 ML Syringe SUBCUT SCH (16:37)
[2021-09-30] MEDS ORDERED: Sodium Chloride 0.9% 10 ML Syringe FLUSH PRN (16:37)
[2021-09-30] MEDS ORDERED: Calcium Carbonate 500 MG Tab.Chew PO PRN (17:52)
[2021-09-30] MEDS ORDERED: Warfarin 5 MG Tab PO ONE (18:00)
[2021-09-30] MEDS: Enoxaparin 80 MG/0.8 ML Syringe SUBCUT SCH (18:00)
[2021-09-30] MEDS: Carvedilol 3.125 MG Tab PO SCH (18:00)
[2021-09-30] MEDS: Sodium Chloride 0.9% 1,000 ML IV SCH (19:20)
[2021-09-30] MEDS: Ticagrelor 90 MG Tab PO SCH (20:46)
[2021-10-01] MEDS: Carvedilol 3.125 MG Tab PO SCH ×2 (08:06→17:46)
[2021-10-01] MEDS: Spironolactone 25 MG Tab PO SCH (08:07)
[2021-10-01] MEDS: Aspirin 81 MG Tab.Chew PO SCH (08:07)
[2021-10-01] MEDS: Ticagrelor 90 MG Tab PO SCH ×2 (08:07→21:03)
[2021-10-01] MEDS: Rosuvastatin 10 MG Tab PO SCH (08:07)
[2021-10-01] MEDS: Sodium Chloride 0.9% 1,000 ML IV SCH (08:12)
[2021-10-01] MEDS ORDERED: Warfarin 5 MG Tab PO ONE (10:00)
[2021-10-01] MEDS: Acetaminophen 325 MG Tab PO PRN (11:35)
--- NOTE | 2021-10-01 14:27 | PCM.PN ---
- General Info Date of Service: 10/01/21 Subjective Update: Ms. Gamez has remained fairly stable since admission yesterday. Oral intake seems to be improved and she is not experienced any nausea or vomiting. Since admission he has had only one loose stool. Denies any new neurologic symptoms. Functional Status: Reports: Tolerating Diet, Urinating - Review of Systems General: Reports: Weakness, Fatigue. Denies: Fever, Chills Pulmonary: Reports: No Symptoms Cardiovascular: Reports: No Symptoms Gastrointestinal: Reports: No Symptoms Neurological: Reports: No Symptoms - Patient Data Vitals - Most Recent: Last Vital Signs Temp 97.3 F 10/01/21 14:15 Pulse 71 10/01/21 14:15 Resp 18 10/01/21 14:15 BP 107/36 L 10/01/21 14:15 Pulse Ox 98 10/01/21 14:15 Weight - Most Recent: 138 lb 4 oz I&O - Last 24 Hours: Intake & Output 09/30/21 10/01/21 10/01/21 22:59 06:59 14:59 Intake Total 895 450 Output Total 400 Balance 495 450 Lab Results Last 24 Hours: Laboratory Results - last 24 hr 09/30/21 10/01/21 10/01/21 Range/Units 14:53 05:40 05:40 WBC 6.7 (4.5-11.0) K/uL RBC 3.68 (3.30-5.50) M/uL Hgb 11.1 L D (12.0-15.0) g/dL Hct 34.0 L (36.0-48.0) % MCV 92 (80-98) fL MCH 30 (27-31) pg MCHC 33 (32-36) % Plt Count 229 (150-400) K/uL Neut % (Auto) 70.8 H (36-66) % Lymph % (Auto) 13.8 L (24-44) % Callahan % (Auto) 10.5 H (2-6) % Eos % (Auto) 4.6 H (2-4) % Baso % (Auto) 0.3 (0-1) % PT 10.3 10.4 (9.2-10.6) sec INR 1.0 1.0 APTT 27.6 (21.4-31.8) sec Sodium (140-148) mmol/L Potassium (3.6-5.2) mmol/L Chloride (100-108) mmol/L Carbon Dioxide (21-32) mmol/L Anion Gap (5.0-14.0) mmol/L BUN (7-18) mg/dL Creatinine (0.6-1.0) mg/dL Est Cr Clr Drug Dosing mL/min Estimated GFR (MDRD) (>60) Glucose (74-106) mg/dL Calcium (8.5-10.1) mg/dL Magnesium (1.8-2.4) mg/dL 10/01/21 Range/Units 05:40 WBC (4.5-11.0) K/uL RBC (3.30-5.50) M/uL Hgb (12.0-15.0) g/dL Hct (36.0-48.0) % MCV (80-98) fL MCH (27-31) pg MCHC (32-36) % Plt Count (150-400) K/uL Neut % (Auto) (36-66) % Lymph % (Auto) (24-44) % Callahan % (Auto) (2-6) % Eos % (Auto) (2-4) % Baso % (Auto) (0-1) % PT (9.2-10.6) sec INR APTT (21.4-31.8) sec Sodium 143 (140-148) mmol/L Potassium 3.9 (3.6-5.2) mmol/L Chloride 109 H (100-108) mmol/L Carbon Dioxide 21 (21-32) mmol/L Anion Gap 16.9 H (5.0-14.0) mmol/L BUN 31 H (7-18) mg/dL Creatinine 2.3 H (0.6-1.0) mg/dL Est Cr Clr Drug Dosing 16.85 mL/min Estimated GFR (MDRD) 20 L (>60) Glucose 70 L (74-106) mg/dL Calcium 8.5 (8.5-10.1) mg/dL Magnesium 1.8 (1.8-2.4) mg/dL Med Orders - Current: Current Medications Acetaminophen (Acetaminophen 325 Mg Tab) 650 mg PO Q4H PRN PRN Reason: Pain (Mild 1-3)/fever Last Admin: 10/01/21 11:35 Dose: 650 mg Documented by: Aspirin (Aspirin 81 Mg Tab.Chew) 81 mg PO DAILY [facility] Last Admin: 10/01/21 08:07 Dose: 81 mg Documented by: Calcium Carbonate/Glycine (Calcium Carbonate 500 Mg Tab.Chew) 1,000 mg PO Q2H PRN PRN Reason: Indigestion Last Admin: 09/30/21 17:58 Dose: 1,000 mg Documented by: Carvedilol (Carvedilol 3.125 Mg Tab) 3.125 mg PO BIDMEALS [facility] Last Admin: 10/01/21 08:06 Dose: 3.125 mg Documented by: Enoxaparin Sodium (Enoxaparin 80 Mg/0.8 Ml Syringe) 70 mg SUBCUT Q24H [facility] Last Admin: 09/30/21 18:00 Dose: 70 mg Documented by: Ondansetron HCl (Ondansetron 4 Mg/2 Ml Sdv) 4 mg IV Q4H PRN PRN Reason: Nausea/Vomiting Pantoprazole Sodium (Pantoprazole 40 Mg Tab.Cr) 40 mg PO BIDAC [facility] Polyethylene Glycol (Polyethylene Glycol 3350 Powder 17 Gm Packet) 17 gm PO DAILY PRN PRN Reason: Constipation Rosuvastatin Calcium (Rosuvastatin 10 Mg Tab) 5 mg PO DAILY [facility] Last Admin: 10/01/21 08:07 Dose: 5 mg Documented by: Sodium Chloride (Sodium Chloride 0.9% 10 Ml Syringe) 10 ml FLUSH ASDIRECTED PRN PRN Reason: Keep Vein Open Spironolactone (Spironolactone 25 Mg Tab) 25 mg PO DAILY [facility] Last Admin: 10/01/21 08:07 Dose: 25 mg Documented by: Ticagrelor (Ticagrelor 90 Mg Tab) 90 mg PO BID [facility] Last Admin: 10/01/21 08:07 Dose: 90 mg Documented by: Discontinued Medications Calcium Carbonate/Glycine (Calcium Carbonate 500 Mg Tab.Chew) 1,000 mg PO ONETIME ONE Stop: 09/30/21 12:49 Last Admin: 09/30/21 13:15 Dose: 1,000 mg Documented by: Sodium Chloride (Normal Saline) 1,000 mls @ 999 mls/hr IV ASDIRECTED [facility] Last Admin: 09/30/21 13:00 Dose: 999 mls/hr Documented by: Sodium Chloride (Normal Saline) 1,000 mls @ 500 mls/hr IV ASDIRECTED [facility] Last Admin: 09/30/21 14:12 Dose: 500 mls/hr Documented by: Sodium Chloride (Normal Saline) 1,000 mls @ 75 mls/hr IV ASDIRECTED [facility] Last Admin: 10/01/21 08:12 Dose: 75 mls/hr Documented by: Warfarin Sodium (Warfarin 5 Mg Tab) 5 mg PO ONETIME ONE Stop: 09/30/21 18:01 Last Admin: 09/30/21 17:59 Dose: 5 mg Documented by: Warfarin Sodium (Warfarin 5 Mg Tab) 5 mg PO ONETIME ONE Stop: 10/01/21 10:01 Last Admin: 10/01/21 09:44 Dose: 5 mg Documented by: - Exam Quality Assessment: DVT Prophylaxis General: Alert, Oriented, Cooperative, Mild Distress Lungs: Clear to Auscultation, Normal Respiratory Effort, Decreased Breath Sounds Cardiovascular: Regular Rate, Regular Rhythm, No Murmurs GI/Abdominal Exam: Soft, Non-Tender, No Organomegaly, No Distention Extremities: Non-Tender, No Pedal Edema - Patient Data Lab Results Last 24 hrs: Laboratory Results - last 24 hr 09/30/21 10/01/21 10/01/21 Range/Units 14:53 05:40 05:40 WBC 6.7 (4.5-11.0) K/uL RBC 3.68 (3.30-5.50) M/uL Hgb 11.1 L D (12.0-15.0) g/dL Hct 34.0 L (36.0-48.0) % MCV 92 (80-98) fL MCH 30 (27-31) pg MCHC 33 (32-36) % Plt Count 229 (150-400) K/uL Neut % (Auto) 70.8 H (36-66) % Lymph % (Auto) 13.8 L (24-44) % Callahan % (Auto) 10.5 H (2-6) % Eos % (Auto) 4.6 H (2-4) % Baso % (Auto) 0.3 (0-1) % PT 10.3 10.4 (9.2-10.6) sec INR 1.0 1.0 APTT 27.6 (21.4-31.8) sec Sodium (140-148) mmol/L Potassium (3.6-5.2) mmol/L Chloride (100-108) mmol/L Carbon Dioxide (21-32) mmol/L Anion Gap (5.0-14.0) mmol/L BUN (7-18) mg/dL Creatinine (0.6-1.0) mg/dL Est Cr Clr Drug Dosing mL/min Estimated GFR (MDRD) (>60) Glucose (74-106) mg/dL Calcium (8.5-10.1) mg/dL Magnesium (1.8-2.4) mg/dL 10/01/21 Range/Units 05:40 WBC (4.5-11.0) K/uL RBC (3.30-5.50) M/uL Hgb (12.0-15.0) g/dL Hct (36.0-48.0) % MCV (80-98) fL MCH (27-31) pg MCHC (32-36) % Plt Count (150-400) K/uL Neut % (Auto) (36-66) % Lymph % (Auto) (24-44) % Callahan % (Auto) (2-6) % Eos % (Auto) (2-4) % Baso % (Auto) (0-1) % PT (9.2-10.6) sec INR APTT (21.4-31.8) sec Sodium 143 (140-148) mmol/L Potassium 3.9 (3.6-5.2) mmol/L Chloride 109 H (100-108) mmol/L Carbon Dioxide 21 (21-32) mmol/L Anion Gap 16.9 H (5.0-14.0) mmol/L BUN 31 H (7-18) mg/dL Creatinine 2.3 H (0.6-1.0) mg/dL Est Cr Clr Drug Dosing 16.85 mL/min Estimated GFR (MDRD) 20 L (>60) Glucose 70 L (74-106) mg/dL Calcium 8.5 (8.5-10.1) mg/dL Magnesium 1.8 (1.8-2.4) mg/dL Result Diagrams: 10/01/21 05:40 10/01/21 05:40 Sepsis Event Note - Evaluation Sepsis Screening Result: No Definite Risk - Focused Exam Vital Signs: Vital Signs Temp Pulse Pulse Resp BP BP Pulse Ox 10/01/21 14:15 97.3 F 71 18 107/36 L 98 10/01/21 11:00 96.0 F L 76 18 125/51 L 99 10/01/21 08:06 72 120/53 L 10/01/21 06:52 96.8 F L 72 18 120/53 L 95 10/01/21 03:27 97.6 F 73 18 111/50 L 95 - Problem List Review Problem List Initiated/Reviewed/Updated: Yes - My Orders Last 24 Hours: My Active Orders 09/30/21 15:04 Resuscitation Status Routine 09/30/21 16:37 Acetaminophen [TylenoL] 650 mg PO Q4H PRN Ondansetron [Zofran] 4 mg IV Q4H PRN Sodium Chloride 0.9% [Saline Flush] 10 ml FLUSH ASDIRECTED PRN polyethylene glycoL 3350 [MiraLAX] 17 gm PO DAILY PRN 09/30/21 16:37 Patient Status [ADT] Routine Ambulate [RC] QID Cardiac Monitoring [RC] .As Directed Height and Weight [RC] DAILY Intake and Output [RC] QSHIFT Notify Provider Vital Signs [RC] ASDIRECTED Oxygen Therapy [RC] PRN Up With Assistance [RC] ASDIRECTED Up to Chair [RC] QID Vital Signs [RC] Q4H Peripheral IV Insertion Adult [OM.PC] Routine VTE Pharmacological Contraindications [AST] Per Unit Routine 09/30/21 17:00 carvediloL [Coreg] 3.125 mg PO BIDMEALS 09/30/21 17:52 Calcium Carbonate [Tums] 1,000 mg PO Q2H PRN 09/30/21 18:00 Enoxaparin [Lovenox] 70 mg SUBCUT Q24H 09/30/21 19:21 Consult to Physical Therapy [PT Evaluation and Treatment] [CONS] Routine 09/30/21 21:00 Ticagrelor [Brilinta] 90 mg PO BID 10/01/21 09:00 Aspirin 81 mg PO DAILY Rosuvastatin [Crestor] 5 mg PO DAILY Spironolactone [Aldactone] 25 mg PO DAILY 10/01/21 11:36 Dietary Supplements [RC] TIDMEALS 10/01/21 13:27 Convert IV to Saline Lock [OM.PC] Routine 10/01/21 14:22 Eye Care [RC] ASDIRECTED 10/01/21 16:30 Pantoprazole [ProTONIX] 40 mg PO BIDAC 10/02/21 05:00 BASIC METABOLIC PANEL,BMP [CHEM] Timed INR,PT,PROTHROMBIN TIME [COAG] DAILY 10/03/21 05:00 INR,PT,PROTHROMBIN TIME [COAG] DAILY 10/04/21 05:00 INR,PT,PROTHROMBIN TIME [COAG] DAILY 10/05/21 05:00 INR,PT,PROTHROMBIN TIME [COAG] DAILY - Plan Plan:: ASSESSMENT AND PLAN 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 Stable since admission with no new neurologic symptoms -Enoxaparin 1 mg/kg subcu every 12 hours -Start warfarin 5 mg today, reassess in a.m. -Daily INR NAUSEA VOMITING AND DIARRHEA-minimal symptoms since admission, tolerating current diet -Specific etiology not apparent, monitor during hospitalization -Consider further evaluation depending on symptoms over the next few days ACUTE KIDNEY INJURY-creatinine improved from admission but not yet back to baseline -Saline lock IV -Closely monitor urine output and renal function CONGESTIVE HEART FAILURE-no evidence of acute exacerbation at this time -Resume diuretic therapy tomorrow -Continue other medications GENERALIZED WEAKNESS -Physical therapy daily MAINTENANCE ISSUES -DVT prophylaxis; therapy with Lovenox and Coumadin should provide adequate DVT prophylaxis -GI prophylaxis; continue outpatient PPI therapy -Bunn catheter; not indicated -Nutrition; low-sodium diet -Nicotine dependence; not required CODE STATUS-FULL CODE ADMISSION STATUS-patient will be admitted to inpatient status, expect at least a 2 night hospital stay for evaluation and management of problems as outlined above. At the time of this admission I do not reasonably expected evaluation and management of this problem will require more than a 96 hour hospital stay. DISPOSITION-anticipate discharge to home after the hospital stay.
[2021-10-01] MEDS: Enoxaparin 80 MG/0.8 ML Syringe SUBCUT SCH (17:07)
[2021-10-01] MEDS: Pantoprazole 40 MG Tab.CR PO SCH (17:07)
[2021-10-02] MEDS: Acetaminophen 325 MG Tab PO PRN (07:10)
[2021-10-02] MEDS: Pantoprazole 40 MG Tab.CR PO SCH ×2 (07:11→16:33)
[2021-10-02] MEDS ORDERED: Potassium Chloride 20 MEQ Tab.ER PO ONE (08:15)
[2021-10-02] MEDS: Ticagrelor 90 MG Tab PO SCH ×2 (09:30→20:09)
[2021-10-02] MEDS: Aspirin 81 MG Tab.Chew PO SCH (09:31)
[2021-10-02] MEDS: Rosuvastatin 10 MG Tab PO SCH (09:31)
[2021-10-02] MEDS: Spironolactone 25 MG Tab PO SCH (09:31)
[2021-10-02] MEDS ORDERED: Warfarin 2.5 MG Tab PO ONE (10:00)
[2021-10-02] MEDS: Carvedilol 3.125 MG Tab PO SCH (10:35)
--- NOTE | 2021-10-02 14:18 | PCM.PN ---
- General Info Date of Service: 10/02/21 Subjective Update: Ms. Gamez has been stable over the last 24 hours. Appetite seems to be improving with better oral intake and no nausea or vomiting. Only rare episodes of semiloose stools, no significant diarrhea to this point. Energy level seems to be improving and she has been working with physical therapy. Functional Status: Reports: Tolerating Diet, Ambulating, Urinating - Review of Systems General: Reports: Weakness, Fatigue. Denies: Fever, Chills Pulmonary: Reports: No Symptoms Cardiovascular: Reports: No Symptoms Gastrointestinal: Reports: No Symptoms Genitourinary: Reports: No Symptoms - Patient Data Vitals - Most Recent: Last Vital Signs Temp 97.3 F 10/02/21 10:42 Pulse 65 10/02/21 10:42 Resp 18 10/02/21 10:42 BP 91/46 L 10/02/21 10:42 Pulse Ox 96 10/02/21 10:42 Weight - Most Recent: 138 lb I&O - Last 24 Hours: Intake & Output 10/01/21 10/02/21 10/02/21 22:59 06:59 14:59 Intake Total 1120 Output Total 600 Balance -600 1120 Lab Results Last 24 Hours: Laboratory Results - last 24 hr 10/02/21 10/02/21 Range/Units 04:48 04:48 PT 16.9 H (9.2-10.6) sec INR 1.7 Sodium 142 (140-148) mmol/L Potassium 3.5 L (3.6-5.2) mmol/L Chloride 111 H (100-108) mmol/L Carbon Dioxide 20 L (21-32) mmol/L Anion Gap 14.5 H (5.0-14.0) mmol/L BUN 23 H (7-18) mg/dL Creatinine 1.5 H (0.6-1.0) mg/dL Est Cr Clr Drug Dosing 25.83 mL/min Estimated GFR (MDRD) 33 L (>60) Glucose 76 (74-106) mg/dL Calcium 8.4 L (8.5-10.1) mg/dL Med Orders - Current: Current Medications Acetaminophen (Acetaminophen 325 Mg Tab) 650 mg PO Q4H PRN PRN Reason: Pain (Mild 1-3)/fever Last Admin: 10/02/21 07:10 Dose: 650 mg Documented by: Aspirin (Aspirin 81 Mg Tab.Chew) 81 mg PO DAILY [facility] Last Admin: 10/02/21 09:31 Dose: 81 mg Documented by: Calcium Carbonate/Glycine (Calcium Carbonate 500 Mg Tab.Chew) 1,000 mg PO Q2H PRN PRN Reason: Indigestion Last Admin: 09/30/21 17:58 Dose: 1,000 mg Documented by: Enoxaparin Sodium (Enoxaparin 80 Mg/0.8 Ml Syringe) 70 mg SUBCUT Q24H [facility] Last Admin: 10/01/21 17:07 Dose: 70 mg Documented by: Furosemide (Furosemide 40 Mg Tab) 800 mg PO DAILY [facility] Ondansetron HCl (Ondansetron 4 Mg/2 Ml Sdv) 4 mg IV Q4H PRN PRN Reason: Nausea/Vomiting Pantoprazole Sodium (Pantoprazole 40 Mg Tab.Cr) 40 mg PO BIDAC [facility] Last Admin: 10/02/21 07:11 Dose: 40 mg Documented by: Polyethylene Glycol (Polyethylene Glycol 3350 Powder 17 Gm Packet) 17 gm PO DAILY PRN PRN Reason: Constipation Rosuvastatin Calcium (Rosuvastatin 10 Mg Tab) 5 mg PO DAILY [facility] Last Admin: 10/02/21 09:31 Dose: 5 mg Documented by: Sodium Chloride (Sodium Chloride 0.9% 10 Ml Syringe) 10 ml FLUSH ASDIRECTED PRN PRN Reason: Keep Vein Open Spironolactone (Spironolactone 25 Mg Tab) 25 mg PO DAILY [facility] Last Admin: 10/02/21 09:31 Dose: 25 mg Documented by: Ticagrelor (Ticagrelor 90 Mg Tab) 90 mg PO BID [facility] Last Admin: 10/02/21 09:30 Dose: 90 mg Documented by: Discontinued Medications Calcium Carbonate/Glycine (Calcium Carbonate 500 Mg Tab.Chew) 1,000 mg PO ONETIME ONE Stop: 09/30/21 12:49 Last Admin: 09/30/21 13:15 Dose: 1,000 mg Documented by: Carvedilol (Carvedilol 3.125 Mg Tab) 3.125 mg PO BIDMEALS [facility] Last Admin: 10/02/21 10:35 Dose: Not Given Documented by: Sodium Chloride (Normal Saline) 1,000 mls @ 999 mls/hr IV ASDIRECTED [facility] Last Admin: 09/30/21 13:00 Dose: 999 mls/hr Documented by: Sodium Chloride (Normal Saline) 1,000 mls @ 500 mls/hr IV ASDIRECTED [facility] Last Admin: 09/30/21 14:12 Dose: 500 mls/hr Documented by: Sodium Chloride (Normal Saline) 1,000 mls @ 75 mls/hr IV ASDIRECTED [facility] Last Admin: 10/01/21 08:12 Dose: 75 mls/hr Documented by: Potassium Chloride (Potassium Chloride 20 Meq Tab.Er) 40 meq PO ONETIME ONE Stop: 10/02/21 08:16 Last Admin: 10/02/21 09:35 Dose: 40 meq Documented by: Warfarin Sodium (Warfarin 5 Mg Tab) 5 mg PO ONETIME ONE Stop: 09/30/21 18:01 Last Admin: 09/30/21 17:59 Dose: 5 mg Documented by: Warfarin Sodium (Warfarin 5 Mg Tab) 5 mg PO ONETIME ONE Stop: 10/01/21 10:01 Last Admin: 10/01/21 09:44 Dose: 5 mg Documented by: Warfarin Sodium (Warfarin 2.5 Mg Tab) 2.5 mg PO ONETIME ONE Stop: 10/02/21 10:01 Last Admin: 10/02/21 10:30 Dose: 2.5 mg Documented by: - Exam Quality Assessment: DVT Prophylaxis General: Alert, Oriented, Cooperative, Mild Distress Lungs: Clear to Auscultation, Normal Respiratory Effort Cardiovascular: Regular Rate, Regular Rhythm, No Murmurs GI/Abdominal Exam: Soft, Non-Tender, No Organomegaly, No Distention Extremities: Non-Tender, No Pedal Edema - Patient Data Lab Results Last 24 hrs: Laboratory Results - last 24 hr 10/02/21 10/02/21 Range/Units 04:48 04:48 PT 16.9 H (9.2-10.6) sec INR 1.7 Sodium 142 (140-148) mmol/L Potassium 3.5 L (3.6-5.2) mmol/L Chloride 111 H (100-108) mmol/L Carbon Dioxide 20 L (21-32) mmol/L Anion Gap 14.5 H (5.0-14.0) mmol/L BUN 23 H (7-18) mg/dL Creatinine 1.5 H (0.6-1.0) mg/dL Est Cr Clr Drug Dosing 25.83 mL/min Estimated GFR (MDRD) 33 L (>60) Glucose 76 (74-106) mg/dL Calcium 8.4 L (8.5-10.1) mg/dL Result Diagrams: 10/01/21 05:40 10/02/21 04:48 Sepsis Event Note - Evaluation Sepsis Screening Result: No Definite Risk - Focused Exam Vital Signs: Vital Signs Temp Pulse Resp BP Pulse Ox 10/02/21 10:42 97.3 F 65 18 91/46 L 96 10/02/21 06:58 97.2 F 69 16 108/45 L 97 10/02/21 02:52 97.5 F 69 16 129/49 L 96 - Problem List Review Problem List Initiated/Reviewed/Updated: Yes - My Orders Last 24 Hours: My Active Orders 10/01/21 13:27 Convert IV to Saline Lock [OM.PC] Routine 10/01/21 14:22 Eye Care [RC] ASDIRECTED 10/01/21 16:30 Pantoprazole [ProTONIX] 40 mg PO BIDAC 10/03/21 05:00 BASIC METABOLIC PANEL,BMP [CHEM] Timed INR,PT,PROTHROMBIN TIME [COAG] DAILY 10/03/21 09:00 Furosemide [Lasix] 800 mg PO DAILY 10/04/21 05:00 INR,PT,PROTHROMBIN TIME [COAG] DAILY 10/05/21 05:00 INR,PT,PROTHROMBIN TIME [COAG] DAILY - Plan Plan:: ASSESSMENT AND PLAN 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 Stable since admission with no new n eurologic symptoms -Enoxaparin 1 mg/kg subcu every 12 hours -warfarin 2.5 mg today, reassess in a.m. -Daily INR NAUSEA VOMITING AND DIARRHEA-essentially resolved -Specific etiology not apparent, monitor during hospitalization ACUTE KIDNEY INJURY-creatinine is almost back to baseline -Saline lock IV -Closely monitor urine output and renal function CONGESTIVE HEART FAILURE-no evidence of acute exacerbation at this time -Resume diuretic therapy -Continue other medications GENERALIZED WEAKNESS -Physical therapy daily MAINTENANCE ISSUES -DVT prophylaxis; therapy with Lovenox and Coumadin should provide adequate DVT prophylaxis -GI prophylaxis; continue outpatient PPI therapy -Bunn catheter; not indicated -Nutrition; low-sodium diet -Nicotine dependence; not required CODE STATUS-FULL CODE ADMISSION STATUS-patient will be admitted to inpatient status, expect at least a 2 night hospital stay for evaluation and management of problems as outlined above. At the time of this admission I do not reasonably expected evaluation and management of this problem will require more than a 96 hour hospital stay. DISPOSITION-anticipate discharge to home after the hospital stay.
[2021-10-02] MEDS: Enoxaparin 80 MG/0.8 ML Syringe SUBCUT SCH (17:31)
[2021-10-03] MEDS: Pantoprazole 40 MG Tab.CR PO SCH ×2 (08:05→15:46)
[2021-10-03] MEDS ORDERED: Furosemide 40 MG Tab PO SCH (09:00)
[2021-10-03] MEDS: Rosuvastatin 10 MG Tab PO SCH (09:18)
[2021-10-03] MEDS: Aspirin 81 MG Tab.Chew PO SCH (09:19)
[2021-10-03] MEDS: Spironolactone 25 MG Tab PO SCH (09:19)
[2021-10-03] MEDS: Ticagrelor 90 MG Tab PO SCH ×2 (09:19→20:16)
--- NOTE | 2021-10-03 15:49 | PCM.PN ---
- General Info Date of Service: 10/03/21 Subjective Update: Ms. Gamez has continued to improve and regain strength. She has been doing well with eating and has had no significant symptoms of nausea or diarrhea. Denies any new neurologic symptoms. Functional Status: Reports: Tolerating Diet, Ambulating, Urinating - Review of Systems General: Reports: Weakness, Fatigue. Denies: Fever, Chills Pulmonary: Reports: No Symptoms Cardiovascular: Reports: No Symptoms Gastrointestinal: Reports: No Symptoms Genitourinary: Reports: No Symptoms - Patient Data Vitals - Most Recent: Last Vital Signs Temp 97.5 F 10/03/21 15:25 Pulse 72 10/03/21 15:25 Resp 16 10/03/21 15:25 BP 116/58 L 10/03/21 15:25 Pulse Ox 96 10/03/21 15:25 Weight - Most Recent: 149 lb 9.6 oz I&O - Last 24 Hours: Intake & Output 10/03/21 10/03/21 10/03/21 06:59 14:59 22:59 Intake Total 600 Output Total 500 900 Balance -500 -300 Lab Results Last 24 Hours: Laboratory Results - last 24 hr 10/03/21 10/03/21 Range/Units 06:08 06:08 PT 30.6 H (9.2-10.6) sec INR 3.1 Sodium 144 (140-148) mmol/L Potassium 4.2 (3.6-5.2) mmol/L Chloride 113 H (100-108) mmol/L Carbon Dioxide 20 L (21-32) mmol/L Anion Gap 15.2 H (5.0-14.0) mmol/L BUN 21 H (7-18) mg/dL Creatinine 1.3 H (0.6-1.0) mg/dL Est Cr Clr Drug Dosing 29.80 mL/min Estimated GFR (MDRD) 39 L (>60) Glucose 86 (74-106) mg/dL Calcium 8.0 L (8.5-10.1) mg/dL Med Orders - Current: Current Medications Acetaminophen (Acetaminophen 325 Mg Tab) 650 mg PO Q4H PRN PRN Reason: Pain (Mild 1-3)/fever Last Admin: 10/02/21 07:10 Dose: 650 mg Documented by: Aspirin (Aspirin 81 Mg Tab.Chew) 81 mg PO DAILY [facility] Last Admin: 10/03/21 09:19 Dose: 81 mg Documented by: Calcium Carbonate/Glycine (Calcium Carbonate 500 Mg Tab.Chew) 1,000 mg PO Q2H PRN PRN Reason: Indigestion Last Admin: 09/30/21 17:58 Dose: 1,000 mg Documented by: Enoxaparin Sodium (Enoxaparin 80 Mg/0.8 Ml Syringe) 70 mg SUBCUT Q24H [facility] Stop: 10/03/21 23:59 Last Admin: 10/02/21 17:31 Dose: 70 mg Documented by: Enoxaparin Sodium (Enoxaparin 100 Mg/1 Ml Syringe) 100 mg SUBCUT DAILY [facility] Furosemide (Furosemide 40 Mg Tab) 80 mg PO DAILY [facility] Last Admin: 10/03/21 09:19 Dose: 80 mg Documented by: Ondansetron HCl (Ondansetron 4 Mg/2 Ml Sdv) 4 mg IV Q4H PRN PRN Reason: Nausea/Vomiting Pantoprazole Sodium (Pantoprazole 40 Mg Tab.Cr) 40 mg PO BIDAC [facility] Last Admin: 10/03/21 08:05 Dose: 40 mg Documented by: Polyethylene Glycol (Polyethylene Glycol 3350 Powder 17 Gm Packet) 17 gm PO DAILY PRN PRN Reason: Constipation Rosuvastatin Calcium (Rosuvastatin 10 Mg Tab) 5 mg PO DAILY [facility] Last Admin: 10/03/21 09:18 Dose: 5 mg Documented by: Sodium Chloride (Sodium Chloride 0.9% 10 Ml Syringe) 10 ml FLUSH ASDIRECTED PRN PRN Reason: Keep Vein Open Spironolactone (Spironolactone 25 Mg Tab) 25 mg PO DAILY [facility] Last Admin: 10/03/21 09:19 Dose: 25 mg Documented by: Ticagrelor (Ticagrelor 90 Mg Tab) 90 mg PO BID [facility] Last Admin: 10/03/21 09:19 Dose: 90 mg Documented by: Warfarin Sodium (Warfarin 2.5 Mg Tab) 2.5 mg PO ONETIME ONE Stop: 10/03/21 16:01 Discontinued Medications Calcium Carbonate/Glycine (Calcium Carbonate 500 Mg Tab.Chew) 1,000 mg PO ONETIME ONE Stop: 09/30/21 12:49 Last Admin: 09/30/21 13:15 Dose: 1,000 mg Documented by: Carvedilol (Carvedilol 3.125 Mg Tab) 3.125 mg PO BIDMEALS [facility] Last Admin: 10/02/21 10:35 Dose: Not Given Documented by: Sodium Chloride (Normal Saline) 1,000 mls @ 999 mls/hr IV ASDIRECTED [facility] Last Admin: 09/30/21 13:00 Dose: 999 mls/hr Documented by: Sodium Chloride (Normal Saline) 1,000 mls @ 500 mls/hr IV ASDIRECTED [facility] Last Admin: 09/30/21 14:12 Dose: 500 mls/hr Documented by: Sodium Chloride (Normal Saline) 1,000 mls @ 75 mls/hr IV ASDIRECTED [facility] Last Admin: 10/01/21 08:12 Dose: 75 mls/hr Documented by: Potassium Chloride (Potassium Chloride 20 Meq Tab.Er) 40 meq PO ONETIME ONE Stop: 10/02/21 08:16 Last Admin: 10/02/21 09:35 Dose: 40 meq Documented by: Warfarin Sodium (Warfarin 5 Mg Tab) 5 mg PO ONETIME ONE Stop: 09/30/21 18:01 Last Admin: 09/30/21 17:59 Dose: 5 mg Documented by: Warfarin Sodium (Warfarin 5 Mg Tab) 5 mg PO ONETIME ONE Stop: 10/01/21 10:01 Last Admin: 10/01/21 09:44 Dose: 5 mg Documented by: Warfarin Sodium (Warfarin 2.5 Mg Tab) 2.5 mg PO ONETIME ONE Stop: 10/02/21 10:01 Last Admin: 10/02/21 10:30 Dose: 2.5 mg Documented by: - Exam Quality Assessment: DVT Prophylaxis General: Alert, Oriented, Cooperative, No Acute Distress Lungs: Clear to Auscultation, Normal Respiratory Effort Cardiovascular: Regular Rate, Regular Rhythm, No Murmurs GI/Abdominal Exam: Soft, Non-Tender, No Organomegaly, No Distention Extremities: Non-Tender, No Pedal Edema - Patient Data Lab Results Last 24 hrs: Laboratory Results - last 24 hr 10/03/21 10/03/21 Range/Units 06:08 06:08 PT 30.6 H (9.2-10.6) sec INR 3.1 Sodium 144 (140-148) mmol/L Potassium 4.2 (3.6-5.2) mmol/L Chloride 113 H (100-108) mmol/L Carbon Dioxide 20 L (21-32) mmol/L Anion Gap 15.2 H (5.0-14.0) mmol/L BUN 21 H (7-18) mg/dL Creatinine 1.3 H (0.6-1.0) mg/dL Est Cr Clr Drug Dosing 29.80 mL/min Estimated GFR (MDRD) 39 L (>60) Glucose 86 (74-106) mg/dL Calcium 8.0 L (8.5-10.1) mg/dL Result Diagrams: 10/01/21 05:40 10/03/21 06:08 Sepsis Event Note - Evaluation Sepsis Screening Result: No Definite Risk - Focused Exam Vital Signs: Vital Signs Temp Pulse Resp BP Pulse Ox 10/03/21 15:25 97.5 F 72 16 116/58 L 96 10/03/21 11:16 97 F 78 12 118/69 98 10/03/21 08:00 97 F 70 12 142/61 H 96 - Problem List Review Problem List Initiated/Reviewed/Updated: Yes - My Orders Last 24 Hours: My Active Orders 10/03/21 09:00 Furosemide [Lasix] 80 mg PO DAILY 10/03/21 16:00 Warfarin [Coumadin] 2.5 mg PO ONETIME ONE 10/04/21 05:00 INR,PT,PROTHROMBIN TIME [COAG] DAILY 10/04/21 09:00 Enoxaparin [Lovenox] 100 mg SUBCUT DAILY 10/05/21 05:00 INR,PT,PROTHROMBIN TIME [COAG] DAILY - Plan Plan:: ASSESSMENT AND PLAN 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 Stable since admission with no new ne urologic symptoms. INR today is slightly supratherapeutic. -Enoxaparin 1 mg/kg subcu every 12 hours, convert to 1.5 mg/kg every 24 hours in a.m. -warfarin 2.5 mg today, reassess in a.m. -Daily INR NAUSEA VOMITING AND DIARRHEA-essentially resolved ACUTE KIDNEY INJURY-creatinine is back to baseline -Saline lock IV -Continue to closely monitor urine output and renal function CONGESTIVE HEART FAILURE-no evidence of acute exacerbation at this time -Resume diuretic therapy -Continue other medications GENERALIZED WEAKNESS -Physical therapy daily MAINTENANCE ISSUES -DVT prophylaxis; therapy with Lovenox and Coumadin should provide adequate DVT prophylaxis -GI prophylaxis; continue outpatient PPI therapy -Bunn catheter; not indicated -Nutrition; low-sodium diet -Nicotine dependence; not required CODE STATUS-FULL CODE ADMISSION STATUS-patient will be admitted to inpatient status, expect at least a 2 night hospital stay for evaluation and management of problems as outlined above. At the time of this admission I do not reasonably expected evaluation and management of this problem will require more than a 96 hour hospital stay. DISPOSITION-anticipate discharge to home tomorrow
[2021-10-03] MEDS ORDERED: Warfarin 2.5 MG Tab PO ONE (16:00)
[2021-10-03] MEDS: Enoxaparin 80 MG/0.8 ML Syringe SUBCUT SCH (17:37)
[2021-10-04] MEDS: Pantoprazole 40 MG Tab.CR PO SCH ×2 (07:32→16:15)
[2021-10-04] MEDS ORDERED: Enoxaparin 100 MG/1 ML Syringe SUBCUT SCH (09:00)
[2021-10-04] MEDS: Rosuvastatin 10 MG Tab PO SCH (09:01)
[2021-10-04] MEDS: Acetaminophen 325 MG Tab PO PRN (09:01)
[2021-10-04] MEDS: Ticagrelor 90 MG Tab PO SCH ×2 (09:01→21:21)
[2021-10-04] MEDS: Spironolactone 25 MG Tab PO SCH (09:01)
[2021-10-04] MEDS: Aspirin 81 MG Tab.Chew PO SCH (09:01)
[2021-10-04] MEDS: Furosemide 20 MG Tab PO SCH (09:02)
--- NOTE | 2021-10-04 12:09 | PCM.PN ---
- General Info Date of Service: 10/04/21 Subjective Update: No acute events overnight. Vital signs have been stable. Patient reports that she feels nauseated today and is having difficulty with oral intake. She did not do as well with her walk today and feels more weak and fatigued. No reports of abdominal pain. No vomiting or diarrhea. No fevers. No new concerning neurologic deficits. Functional Status: Reports: Pain Controlled, Tolerating Diet - Review of Systems General: Reports: Weakness Gastrointestinal: Reports: Nausea - Patient Data Vitals - Most Recent: Last Vital Signs Temp 35.8 C L 10/04/21 11:17 Pulse 89 10/04/21 11:17 Resp 18 10/04/21 11:17 BP 101/68 10/04/21 11:17 Pulse Ox 98 10/04/21 11:17 Weight - Most Recent: 65.771 kg I&O - Last 24 Hours: Intake & Output 10/03/21 10/04/21 10/04/21 22:59 06:59 14:59 Intake Total 240 240 400 Balance 240 240 400 Lab Results Last 24 Hours: Laboratory Results - last 24 hr 10/04/21 Range/Units 04:27 PT 38.9 H (9.2-10.6) sec INR 4.0 Med Orders - Current: Current Medications Acetaminophen (Acetaminophen 325 Mg Tab) 650 mg PO Q4H PRN PRN Reason: Pain (Mild 1-3)/fever Last Admin: 10/04/21 09:01 Dose: 650 mg Documented by: Aspirin (Aspirin 81 Mg Tab.Chew) 81 mg PO DAILY [facility] Last Admin: 10/04/21 09:01 Dose: 81 mg Documented by: Calcium Carbonate/Glycine (Calcium Carbonate 500 Mg Tab.Chew) 1,000 mg PO Q2H PRN PRN Reason: Indigestion Last Admin: 09/30/21 17:58 Dose: 1,000 mg Documented by: Furosemide (Furosemide 20 Mg Tab) 20 mg PO DAILY [facility] Last Admin: 10/04/21 09:02 Dose: 20 mg Documented by: Ondansetron HCl (Ondansetron 4 Mg/2 Ml Sdv) 4 mg IV Q4H PRN PRN Reason: Nausea/Vomiting Oxymetazoline HCl (Oxymetazoline 0.05% Nasal [place] 30 Ml Bottle) 1 ml ALVARO BID [facility] Pantoprazole Sodium (Pantoprazole 40 Mg Tab.Cr) 40 mg PO BIDAC [facility] Last Admin: 10/04/21 07:32 Dose: 40 mg Documented by: Polyethylene Glycol (Polyethylene Glycol 3350 Powder 17 Gm Packet) 17 gm PO DAILY PRN PRN Reason: Constipation Rosuvastatin Calcium (Rosuvastatin 10 Mg Tab) 5 mg PO DAILY [facility] Last Admin: 10/04/21 09:01 Dose: 5 mg Documented by: Sodium Chloride (Sodium Chloride 0.9% 10 Ml Syringe) 10 ml FLUSH ASDIRECTED PRN PRN Reason: Keep Vein Open Spironolactone (Spironolactone 25 Mg Tab) 25 mg PO DAILY [facility] Last Admin: 10/04/21 09:01 Dose: 25 mg Documented by: Ticagrelor (Ticagrelor 90 Mg Tab) 90 mg PO BID [facility] Last Admin: 10/04/21 09:01 Dose: 90 mg Documented by: Discontinued Medications Calcium Carbonate/Glycine (Calcium Carbonate 500 Mg Tab.Chew) 1,000 mg PO ONETIME ONE Stop: 09/30/21 12:49 Last Admin: 09/30/21 13:15 Dose: 1,000 mg Documented by: Carvedilol (Carvedilol 3.125 Mg Tab) 3.125 mg PO BIDMEALS [facility] Last Admin: 10/02/21 10:35 Dose: Not Given Documented by: Enoxaparin Sodium (Enoxaparin 80 Mg/0.8 Ml Syringe) 70 mg SUBCUT Q24H [facility] Stop: 10/03/21 23:59 Last Admin: 10/03/21 17:37 Dose: 70 mg Documented by: Enoxaparin Sodium (Enoxaparin 100 Mg/1 Ml Syringe) 100 mg SUBCUT DAILY [facility] Last Admin: 10/04/21 09:57 Dose: Not Given Documented by: Furosemide (Furosemide 40 Mg Tab) 80 mg PO DAILY [facility] Last Admin: 10/03/21 09:19 Dose: 80 mg Documented by: Sodium Chloride (Normal Saline) 1,000 mls @ 999 mls/hr IV ASDIRECTED [facility] Last Admin: 09/30/21 13:00 Dose: 999 mls/hr Documented by: Sodium Chloride (Normal Saline) 1,000 mls @ 500 mls/hr IV ASDIRECTED [facility] Last Admin: 09/30/21 14:12 Dose: 500 mls/hr Documented by: Sodium Chloride (Normal Saline) 1,000 mls @ 75 mls/hr IV ASDIRECTED [facility] Last Admin: 10/01/21 08:12 Dose: 75 mls/hr Documented by: Potassium Chloride (Potassium Chloride 20 Meq Tab.Er) 40 meq PO ONETIME ONE Stop: 10/02/21 08:16 Last Admin: 10/02/21 09:35 Dose: 40 meq Documented by: Warfarin Sodium (Warfarin 5 Mg Tab) 5 mg PO ONETIME ONE Stop: 09/30/21 18:01 Last Admin: 09/30/21 17:59 Dose: 5 mg Documented by: Warfarin Sodium (Warfarin 5 Mg Tab) 5 mg PO ONETIME ONE Stop: 10/01/21 10:01 Last Admin: 10/01/21 09:44 Dose: 5 mg Documented by: Warfarin Sodium (Warfarin 2.5 Mg Tab) 2.5 mg PO ONETIME ONE Stop: 10/02/21 10:01 Last Admin: 10/02/21 10:30 Dose: 2.5 mg Documented by: Warfarin Sodium (Warfarin 2.5 Mg Tab) 2.5 mg PO ONETIME ONE Stop: 10/03/21 16:01 Last Admin: 10/03/21 15:45 Dose: 2.5 mg Documented by: - Exam Quality Assessment: No: Supplemental Oxygen General: Alert, Oriented, Cooperative, No Acute Distress Neck: Other (epistaxis right nostril ) Lungs: Normal Respiratory Effort. No: Wheezing GI/Abdominal Exam: Soft, No Distention Skin: Warm, Dry Psy/Mental Status: Alert, Normal Affect - Patient Data Lab Results Last 24 hrs: Laboratory Results - last 24 hr 10/04/21 Range/Units 04:27 PT 38.9 H (9.2-10.6) sec INR 4.0 Result Diagrams: 10/01/21 05:40 10/03/21 06:08 Sepsis Event Note - Evaluation Sepsis Screening Result: No Definite Risk - Focused Exam Vital Signs: Vital Signs Temp Pulse Resp BP Pulse Ox 10/04/21 11:17 35.8 C L 89 18 101/68 98 10/04/21 07:29 36.1 C 82 16 122/71 94 L 10/04/21 03:25 36.3 C 81 16 112/54 L 97 - Problem List Review Problem List Initiated/Reviewed/Updated: Yes - My Orders Last 24 Hours: My Active Orders 10/04/21 12:15 Oxymetazoline [Nasal Decongestant [place]] 1 ml ALVARO BID 10/05/21 05:00 BASIC METABOLIC PANEL,BMP [CHEM] Timed CBC W/O DIFF,HEMOGRAM [HEME] Timed (1) INR,PT,PROTHROMBIN TIME [COAG] Timed - Plan Plan:: ASSESSMENT AND PLAN - 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 Stable with no new neurologic symptoms. INR today is moderately supratherapeutic. -Discontinue enoxaparin with more supratherapeutic INR -Hold warfarin -Daily INR NAUSEA VOMITING AND DIARRHEA-still some nausea but no vomiting or diarrhea. Intake poor. ACUTE KIDNEY INJURY-creatinine has steadily improved throughout the hospital stay. -Saline lock IV -Continue to closely monitor urine output and renal function CONGESTIVE HEART FAILURE-no evidence of acute exacerbation at this time -Continue diuretic therapy -Continue other medications GENERALIZED WEAKNESS-slowly improving. -Physical therapy daily MAINTENANCE ISSUES -DVT prophylaxis; warfarin -GI prophylaxis; continue outpatient PPI therapy -Bunn catheter; not indicated -Nutrition; low-sodium diet CODE STATUS-FULL CODE DISPOSITION-anticipate discharge to home tomorrow if stable overnight
[2021-10-04] MEDS: Oxymetazoline 0.05% Nasal Spray 30 ML Bottle NAS SCH ×2 (12:18→21:21)
[2021-10-05 07:28] VITALS: BP 136/79; PULSE 84
[2021-10-05] MEDS: Rosuvastatin 10 MG Tab PO SCH (08:26)
[2021-10-05] MEDS: Pantoprazole 40 MG Tab.CR PO SCH (08:26)
[2021-10-05] MEDS: Furosemide 20 MG Tab PO SCH (08:26)
[2021-10-05] MEDS: Ticagrelor 90 MG Tab PO SCH (08:26)
[2021-10-05] MEDS: Oxymetazoline 0.05% Nasal Spray 30 ML Bottle NAS SCH (08:26)
[2021-10-05] MEDS: Spironolactone 25 MG Tab PO SCH (08:26)
[2021-10-05] MEDS: Aspirin 81 MG Tab.Chew PO SCH (08:26)
--- NOTE | 2021-10-05 09:35 | PCM.DCSUM1 ---
Discharge Summary - Hospital Course Brief History: Ms. Gamez is an 81-year-old woman who was admitted through the emergency department with severe weakness and lethargy secondary to recurrent embolic CVAs and acute kidney injury. - Discharge Data Discharge Date: 10/05/21 Discharge Disposition: Home, Self-Care 01 Condition: Fair - Referral to Home Health Primary Care Physician: Noah Erickson MD - Discharge Diagnosis/Problem(s) (1) Cerebrovascular accident, embolic SNOMED Code(s): 646855731 ICD Code: I63.9 - CEREBRAL INFARCTION, UNSPECIFIED Status: Acute Current Visit: Yes (2) BRAYAN (acute kidney injury) SNOMED Code(s): 25789116, 41545231 ICD Code: N17.9 - ACUTE KIDNEY FAILURE, UNSPECIFIED Status: Acute Current Visit: Yes (3) Posterior circulation stroke SNOMED Code(s): 619944466 ICD Code: I63.50 - CEREB INFRC DUE TO UNSP OCCLS OR STENOS OF UNSP CEREB ARTERY Status: Acute Current Visit: No (4) Diplopia SNOMED Code(s): 50094599 ICD Code: H53.2 - DIPLOPIA Status: Acute Current Visit: No (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 PT Reason for Consult: Weakness This query below is only for informational purposes and is not editable. Admission Diagnosis/Problem: CVA, Cerebrovascular accident Hospital Course: Ms. Gamez is an 81-year-old woman who was admitted through the emergency department with a recent history of progressive weakness, anorexia, nausea, and diarrhea. She also has noted new difficulty with her vision. She did experience a documented CVA associated with angiogram performed a few months ago. On evaluation in the emergency department today MRI does document to areas of new infarct in the occipital lobe as well as midbrain. 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 Recommendation has been to proceed with anticoagulation with warfarin. She has a known history of coronary artery disease as well as congestive heart failure with an estimated ejection fraction of 30%. On admission she was started on subcutaneous Lovenox therapeutic dosing at 1 mg/kg twice daily as well as oral anticoagulation with warfarin. Over the next few days of hospital stay her nausea vomiting and diarrhea essentially resolved. She was noted to have acute kidney injury with marked elevation in creatinine and this also improved through her hospitalization. Creatinine was slightly above baseline at the time of discharge. For the first few days diuretic therapy was held but was restarted prior to discharge. By the time of discharge she was therapeutic on her INR in the enoxaparin was discontinued. She will be given a 1 mg dose of warfarin today and tomorrow, INR will be obtained on October 07. She was seen daily by physical therapy during her hospital stay and slowly regained strength to the point that she was able to transfer and ambulate with use of her walker independently. Activity will be as tolerated and she will remain on a 2 g sodium diet. Follow-up appointment will be scheduled with her primary care provider within 1 month. Home care services will also be arranged including home physical therapy and Occupational Therapy. - Discharge Plan *PRESCRIPTION DRUG MONITORING PROGRAM REVIEWED*: Not Applicable *COPY OF PRESCRIPTION DRUG MONITORING REPORT IN PATIENT CHARANJIT: Not Applicable Prescriptions/Med Rec: Warfarin [Coumadin] 1 mg PO DAILY #30 tab Home Medications: Home Meds Aspirin 81 mg PO DAILY 02/25/18 [History] Cholecalciferol (Vitamin D3) [Vitamin D3] 5,000 units PO DAILY 02/25/18 [History] Nitroglycerin [Nitrostat] 0.4 mg SL ASDIRECTED 02/25/18 [History] carvediloL [Coreg] 3.125 mg PO BIDMEALS 03/24/18 [History] Rosuvastatin [Crestor] 5 mg PO DAILY 03/01/21 [History] Furosemide 20 tab PO DAILY 08/20/21 [History] Ticagrelor [Brilinta] 90 mg PO BID #60 tablet 08/23/21 [Rx] Spironolactone [Aldactone] 25 mg PO DAILY 09/30/21 [History] lisinopriL [Lisinopril] 2.5 PO DAILY 09/30/21 [History] ondansetron HCL [Zofran] 4 mg PO Q8H PRN 12/20/21 [History] Warfarin [Coumadin] 1 mg PO DAILY #30 tab 10/05/21 [Rx] Patient Handouts: Fall Prevention in the Home, Adult, [id number], Hospital Discharge After a Stroke Referrals: Noah Erickson MD [Primary Care Provider] - 10/16/21 10:30 am (Your appointment with Dr. Erickson is at the [facility].) - Discharge Summary/Plan Comment DC Time >30 min.: No Total # of Minutes for Discharge Time: 20 - Patient Data Vitals - Most Recent: Last Vital Signs Temp 97.7 F 10/05/21 07:27 Pulse 84 10/05/21 07:27 Resp 16 10/05/21 07:27 BP 136/79 10/05/21 07:27 Pulse Ox 98 10/05/21 07:27 Weight - Most Recent: 145 lb 6.4 oz I&O - Last 24 hours: Intake & Output 10/04/21 10/05/21 10/05/21 22:59 06:59 14:59 Intake Total 580 540 240 Balance 580 540 240 Lab Results - Last 24 hrs: Laboratory Results - last 24 hr 10/05/21 10/05/21 10/05/21 Range/Units 04:10 04:10 04:10 WBC 5.9 (4.5-11.0) K/uL RBC 4.34 (3.30-5.50) M/uL Hgb 13.1 D (12.0-15.0) g/dL Hct 39.7 (36.0-48.0) % MCV 92 (80-98) fL MCH 30 (27-31) pg MCHC 33 (32-36) % Plt Count 290 (150-400) K/uL PT 35.1 H (9.2-10.6) sec INR 3.6 Sodium 142 (140-148) mmol/L Potassium 3.9 (3.6-5.2) mmol/L Chloride 103 (100-108) mmol/L Carbon Dioxide 24 (21-32) mmol/L Anion Gap 15.3 H (5.0-14.0) mmol/L BUN 29 H (7-18) mg/dL Creatinine 1.7 H (0.6-1.0) mg/dL Est Cr Clr Drug Dosing 22.79 mL/min Estimated GFR (MDRD) 29 L (>60) Glucose 123 H (74-106) mg/dL Calcium 9.2 (8.5-10.1) mg/dL Med Orders - Current: Current Medications Acetaminophen (Acetaminophen 325 Mg Tab) 650 mg PO Q4H PRN PRN Reason: Pain (Mild 1-3)/fever Last Admin: 10/04/21 09:01 Dose: 650 mg Documented by: Aspirin (Aspirin 81 Mg Tab.Chew) 81 mg PO DAILY COUNT INCLUDES THE [facility] Last Admin: 10/05/21 08:26 Dose: 81 mg Documented by: Calcium Carbonate/Glycine (Calcium Carbonate 500 Mg Tab.Chew) 1,000 mg PO Q2H PRN PRN Reason: Indigestion Last Admin: 09/30/21 17:58 Dose: 1,000 mg Documented by: Furosemide (Furosemide 20 Mg Tab) 20 mg PO DAILY COUNT INCLUDES THE [facility] Last Admin: 10/05/21 08:26 Dose: 20 mg Documented by: Ondansetron HCl (Ondansetron 4 Mg/2 Ml Sdv) 4 mg IV Q4H PRN PRN Reason: Nausea/Vomiting Oxymetazoline HCl (Oxymetazoline 0.05% Nasal [place] 30 Ml Bottle) 0 ml ALVARO BID COUNT INCLUDES THE [facility] Last Admin: 10/05/21 08:26 Dose: 2 sprays Documented by: Pantoprazole Sodium (Pantoprazole 40 Mg Tab.Cr) 40 mg PO BIDAC COUNT INCLUDES THE [facility] Last Admin: 10/05/21 08:26 Dose: 40 mg Documented by: Polyethylene Glycol (Polyethylene Glycol 3350 Powder 17 Gm Packet) 17 gm PO DAILY PRN PRN Reason: Constipation Rosuvastatin Calcium (Rosuvastatin 10 Mg Tab) 5 mg PO DAILY COUNT INCLUDES THE [facility] Last Admin: 10/05/21 08:26 Dose: 5 mg Documented by: Sodium Chloride (Sodium Chloride 0.9% 10 Ml Syringe) 10 ml FLUSH ASDIRECTED PRN PRN Reason: Keep Vein Open Spironolactone (Spironolactone 25 Mg Tab) 25 mg PO DAILY COUNT INCLUDES THE [facility] Last Admin: 10/05/21 08:26 Dose: 25 mg Documented by: Ticagrelor (Ticagrelor 90 Mg Tab) 90 mg PO BID COUNT INCLUDES THE [facility] Last Admin: 10/05/21 08:26 Dose: 90 mg Documented by: Warfarin Sodium (Warfarin 1 Mg Tab) 1 mg PO ONETIME ONE Stop: 10/05/21 09:34 Discontinued Medications Calcium Carbonate/Glycine (Calcium Carbonate 500 Mg Tab.Chew) 1,000 mg PO ONETIME ONE Stop: 09/30/21 12:49 Last Admin: 09/30/21 13:15 Dose: 1,000 mg Documented by: Carvedilol (Carvedilol 3.125 Mg Tab) 3.125 mg PO BIDMEALS COUNT INCLUDES THE [facility] Last Admin: 10/02/21 10:35 Dose: Not Given Documented by: Enoxaparin Sodium (Enoxaparin 80 Mg/0.8 Ml Syringe) 70 mg SUBCUT Q24H COUNT INCLUDES THE [facility] Stop: 10/03/21 23:59 Last Admin: 10/03/21 17:37 Dose: 70 mg Documented by: Enoxaparin Sodium (Enoxaparin 100 Mg/1 Ml Syringe) 100 mg SUBCUT DAILY COUNT INCLUDES THE [facility] Last Admin: 10/04/21 09:57 Dose: Not Given Documented by: Furosemide (Furosemide 40 Mg Tab) 80 mg PO DAILY COUNT INCLUDES THE [facility] Last Admin: 10/03/21 09:19 Dose: 80 mg Documented by: Sodium Chloride (Normal Saline) 1,000 mls @ 999 mls/hr IV ASDIRECTED COUNT INCLUDES THE [facility] Last Admin: 09/30/21 13:00 Dose: 999 mls/hr Documented by: Sodium Chloride (Normal Saline) 1,000 mls @ 500 mls/hr IV ASDIRECTED COUNT INCLUDES THE [facility] Last Admin: 09/30/21 14:12 Dose: 500 mls/hr Documented by: Sodium Chloride (Normal Saline) 1,000 mls @ 75 mls/hr IV ASDIRECTED COUNT INCLUDES THE [facility] Last Admin: 10/01/21 08:12 Dose: 75 mls/hr Documented by: Potassium Chloride (Potassium Chloride 20 Meq Tab.Er) 40 meq PO ONETIME ONE Stop: 10/02/21 08:16 Last Admin: 10/02/21 09:35 Dose: 40 meq Documented by: Warfarin Sodium (Warfarin 5 Mg Tab) 5 mg PO ONETIME ONE Stop: 09/30/21 18:01 Last Admin: 09/30/21 17:59 Dose: 5 mg Documented by: Warfarin Sodium (Warfarin 5 Mg Tab) 5 mg PO ONETIME ONE Stop: 10/01/21 10:01 Last Admin: 10/01/21 09:44 Dose: 5 mg Documented by: Warfarin Sodium (Warfarin 2.5 Mg Tab) 2.5 mg PO ONETIME ONE Stop: 10/02/21 10:01 Last Admin: 10/02/21 10:30 Dose: 2.5 mg Documented by: Warfarin Sodium (Warfarin 2.5 Mg Tab) 2.5 mg PO ONETIME ONE Stop: 10/03/21 16:01 Last Admin: 10/03/21 15:45 Dose: 2.5 mg Documented by: - Exam General: Reports: Alert, Oriented, Cooperative, No Acute Distress Lungs: Reports: Clear to Auscultation, Normal Respiratory Effort Cardiovascular: Reports: Regular Rate, Regular Rhythm, No Murmurs GI/Abdominal Exam: Soft, Non-Tender, No Organomegaly, No Distention Extremities: Non-Tender, No Pedal Edema *Q Meaningful Use (DIS) - VTE *Q VTE Pharmacological Contraindications *Q: High INR Value
== END 2021-10-05 11:25 | disposition home or self-care (01) | DRG 682 ==
LOC: JP.ED 09:48 → JP.MS 15:01
PROVIDERS: ADMIT Hospitalist; ATTEND Internal Medicine
DX: G45.8 Other transient cerebral ischemic attacks and related syndromes (principal); N28.9 Disorder of kidney and ureter, unspecified; N17.9 Acute kidney failure, unspecified; I63.40 Cerebral infarction due to embolism of unspecified cerebral artery; I50.42 Chronic combined systolic (congestive) and diastolic (congestive) heart failure; I50.9 Heart failure, unspecified; H53.2 Diplopia; I25.10 Atherosclerotic heart disease of native coronary artery without angina pectoris; H54.7 Unspecified visual loss; E78.00 Pure hypercholesterolemia, unspecified; I11.0 Hypertensive heart disease with heart failure; K21.9 Gastro-esophageal reflux disease without esophagitis; E86.0 Dehydration; Z79.82 Long term (current) use of aspirin; Z79.899 Other long term (current) drug therapy; I25.2 Old myocardial infarction; Z90.49 Acquired absence of other specified parts of digestive tract; Z90.710 Acquired absence of both cervix and uterus; Z95.5 Presence of coronary angioplasty implant and graft
CPT/HCPCS: 36415; 70551 ×2; 71045 ×2; 80053; 84484; 85025; 85610; 85730; A9270; J7030 ×2; 80048; 83735; 85027; 97110-GP; 97163-GP; 97530-GP; 97535-GP; J1650